=== PATIENT | female | born 1960 | race Caucasian/White ===

== ENCOUNTER → 2016-12-26 | Outpatient (REF) ==
[~2016-12-26] MED LIST: CALC600T57 PO; ESZO1TAB2 PO; MULT1TAB10 PO; PANT20TA PO; SENN8.6T63 PO; SUCR1TA PO; VENL75TA2 PO; VITA10002 PO; VITACRY3 PO; XANA0.5T PO
== END ==
LOC: M LAB 11:36
PROVIDERS: ATTEND Nurse Practitioner Adult Health
DX: Z02.89 Encounter for other administrative examinations (principal)

== ENCOUNTER → 2017-01-28 | Outpatient (CLI) | payer OTHER ==
[2017-01-28 11:14] LABS: BASO % 0.6 % (0.0-1.0); EOS # 0.2 K/mm3 (0.0-0.50); EOS % 2.6 % (0.0-3.0); LARGE UNSTAINED CELL # 0.1 K/mm3 (0.0-0.4); LARGE UNSTAINED CELL % 2.1 % (0.0-4.0); LYMPH # 1.3 K/mm3 (1.5-4.5); LYMPH % 19.6 % (24.0-44.0); MEAN CORPUSCULAR HEMOGLOBIN 28.7 pg (27.0-33.0); MEAN CORPUSCULAR HGB CONC 32.4 g/dl (32.0-36.5); MEAN CORPUSCULAR VOLUME 88.6 fl (80.0-96.0); MONO # 0.4 K/mm3 (0.0-0.8); NEUTROPHILS # 4.2 K/mm3 (1.8-7.7); PLATELET COUNT, AUTOMATED 229 k/mm3 (150-450); RED CELL DISTRIBUTION WIDTH 12.9 % (11.5-14.5)
[2017-01-28 11:35] LABS: ALKALINE PHOSPHATASE 90 U/L (45-117); ALT/SGPT 23 U/L (12-78); ANION GAP 6 MEQ/L (8-16); AST/SGOT 18 U/L (15-37); BILIRUBIN,TOTAL 0.4 MG/DL (0.2-1.0); BLOOD UREA NITROGEN 9 MG/DL (7-18); CALCIUM LEVEL 8.7 MG/DL (8.5-10.1); CARBON DIOXIDE LEVEL 31 MEQ/L (21-32); CHLORIDE LEVEL 106 MEQ/L (98-107); CHOLESTEROL LEVEL 194 MG/DL (<200); CREATININE FOR GFR 0.56 MG/DL (0.55-1.02); GLOMERULAR FILTRATION RATE > 60.0 (>51); GLUCOSE, FASTING 84 MG/DL (70-105); POTASSIUM SERUM 3.9 MEQ/L (3.5-5.1); SODIUM LEVEL 143 MEQ/L (136-145); TRIGLYCERIDES LEVEL 96 MG/DL (<150)
[2017-01-28 11:36] LABS: ALBUMIN 3.4 GM/DL (3.2-5.2); ALBUMIN/GLOBULIN RATIO 1.26 (1.00-1.93); FREE T4 1.11 NG/DL (0.76-1.46); TOTAL PROTEIN 6.1 GM/DL (6.4-8.2)
== END ==
LOC: M WUC 09:27
PROVIDERS: ATTEND Nurse Practitioner Family
DX: E61.1 Iron deficiency (principal); E04.0 Nontoxic diffuse goiter; E78.4 Other hyperlipidemia

== ENCOUNTER → 2017-05-14 | Outpatient (CLI) | payer OTHER ==
--- NOTE | 2017-05-15 03:16 | REP ---
Clinical: Pain. Technique: AP, lateral, bilateral oblique views of the left foot. Findings: Age-related degenerative changes are appreciated primarily involving the interphalangeal joints. No acute fracture or dislocation. Surrounding soft tissues are grossly unremarkable. Lateral view demonstrates small calcaneal heal spur. Impression: Age-related degenerative changes primarily involving the interphalangeal joints. Signed by Maxim Drummond MD 05/15/2017 03:07 A
== END ==
LOC: M RAD 17:22
PROVIDERS: ATTEND Nurse Practitioner Family
DX: M19.072 Primary osteoarthritis, left ankle and foot (principal)

== ENCOUNTER 2017-06-21 11:02 | Outpatient (RCR) | payer OTHER ==
[2017-09-29] MEDS ORDERED: LEVO112T2 (15:11)
[2017-09-29] MEDS ORDERED: FERR32TA (15:11)
[2017-09-29] MEDS ORDERED: TRAZ50TA11 (15:11)
[2017-09-29] MEDS ORDERED: ALPR0.5T3 (15:11)
[2017-09-29] MEDS ORDERED: PREG50CA (15:11)
[2017-09-29] MEDS ORDERED: CITA40TA4 (15:11)
[2017-09-29] MEDS ORDERED: MACR100C43 PO (19:13)
== END 2017-06-24 ==
LOC: M PT 11:02
PROVIDERS: ATTEND Physician Assistant Surgical
DX: Z51.89 Encounter for other specified aftercare (principal); M72.2 Plantar fascial fibromatosis

== ENCOUNTER → 2017-07-02 | Outpatient (CLI) | payer OTHER ==
[~2017-07-02] MED LIST changes: +ALPR0.5T3; +CITA40TA4; +FERR32TA; +LEVO112T2; +MACR100C43 PO; +PREG50CA; +TRAZ50TA11
[2017-07-02 21:21] LABS: BASO % 0.8 % (0.0-1.0); EOS # 0.1 K/mm3 (0.0-0.50); EOS % 1.7 % (0.0-3.0); LARGE UNSTAINED CELL # 0.1 K/mm3 (0.0-0.4); LYMPH # 2.5 K/mm3 (1.5-4.5); MEAN CORPUSCULAR HEMOGLOBIN 28.8 pg (27.0-33.0); MEAN CORPUSCULAR HGB CONC 33.3 g/dl (32.0-36.5); MEAN CORPUSCULAR VOLUME 86.4 fl (80.0-96.0); MONO # 0.4 K/mm3 (0.0-0.8); NEUTROPHILS # 3.6 K/mm3 (1.8-7.7); NEUTROPHILS % 54.5 % (36.0-66.0); PLATELET COUNT, AUTOMATED 220 k/mm3 (150-450); RED CELL DISTRIBUTION WIDTH 13.7 % (11.5-14.5); WHITE BLOOD COUNT 6.6 K/mm3 (4.0-10.0)
[2017-07-02 22:07] LABS: ANION GAP 7 MEQ/L (8-16); BLOOD UREA NITROGEN 20 MG/DL (7-18); CALCIUM LEVEL 8.9 MG/DL (8.5-10.1); CARBON DIOXIDE LEVEL 28 MEQ/L (21-32); CHLORIDE LEVEL 105 MEQ/L (98-107); CREATININE FOR GFR 0.56 MG/DL (0.55-1.02); FREE T4 1.05 NG/DL (0.76-1.46); GLOMERULAR FILTRATION RATE > 60.0 (>51); GLUCOSE, FASTING 83 MG/DL (70-105); POTASSIUM SERUM 4.3 MEQ/L (3.5-5.1); SODIUM LEVEL 140 MEQ/L (136-145)
== END ==
LOC: M WUC 15:48
PROVIDERS: ATTEND Nurse Practitioner Family
DX: E04.0 Nontoxic diffuse goiter (principal); E61.1 Iron deficiency

== ENCOUNTER → 2017-07-08 | Outpatient (CLI) | payer OTHER ==
--- NOTE | 2017-07-08 15:05 | REP ---
CHEST, TWO VIEWS: No prior studies from comparison. Two views of the chest are performed. There is no acute infiltrate. The lungs are clear. Heart is slightly enlarged. Mediastinal silhouette is unremarkable. Metallic plate and screws are seen in the lower cervical spine region. There are mild degenerative changes of the spine. IMPRESSION: Very mild cardiomegaly. No acute infiltrate. Signed by Abhilash Ramirez MD 07/09/2017 12:31 P
== END ==
LOC: M WUC 14:04
PROVIDERS: ATTEND Nurse Practitioner Family
DX: I51.7 Cardiomegaly (principal)

== ENCOUNTER 2017-07-24 14:30 | Outpatient (RCR) | payer OTHER ==
[~2017-07-24 14:30] MED LIST changes: -ALPR0.5T3; -CITA40TA4; -FERR32TA; -LEVO112T2; -MACR100C43 PO; -PREG50CA; -TRAZ50TA11
[2017-09-29] MEDS ORDERED: TRAZ50TA11 (15:11)
[2017-09-29] MEDS ORDERED: PREG50CA (15:11)
[2017-09-29] MEDS ORDERED: FERR32TA (15:11)
[2017-09-29] MEDS ORDERED: CITA40TA4 (15:11)
[2017-09-29] MEDS ORDERED: ALPR0.5T3 (15:11)
[2017-09-29] MEDS ORDERED: LEVO112T2 (15:11)
[2017-09-29] MEDS ORDERED: MACR100C43 PO (19:13)
== END 2017-07-25 ==
LOC: M PT 14:30
PROVIDERS: ATTEND Physician Assistant Surgical
DX: Z51.89 Encounter for other specified aftercare (principal); M72.2 Plantar fascial fibromatosis

== ENCOUNTER → 2017-08-08 | Outpatient (CLI) | payer OTHER ==
[~2017-08-08] MED LIST changes: +ALPR0.5T3; +CITA40TA4; +FERR32TA; +LEVO112T2; +MACR100C43 PO; +PREG50CA; +TRAZ50TA11
== END ==
LOC: M WUC 14:12
PROVIDERS: ATTEND Nurse Practitioner Family
DX: E61.1 Iron deficiency (principal)

== ENCOUNTER 2017-08-12 15:15 | Outpatient (RCR) | payer OTHER ==
[~2017-08-12 15:15] MED LIST changes: -ALPR0.5T3; -CITA40TA4; -FERR32TA; -LEVO112T2; -MACR100C43 PO; -PREG50CA; -TRAZ50TA11
[2017-09-29] MEDS ORDERED: ALPR0.5T3 (15:11)
[2017-09-29] MEDS ORDERED: PREG50CA (15:11)
[2017-09-29] MEDS ORDERED: CITA40TA4 (15:11)
[2017-09-29] MEDS ORDERED: LEVO112T2 (15:11)
[2017-09-29] MEDS ORDERED: FERR32TA (15:11)
[2017-09-29] MEDS ORDERED: TRAZ50TA11 (15:11)
[2017-09-29] MEDS ORDERED: MACR100C43 PO (19:13)
== END 2017-08-24 ==
LOC: M PT 15:15
PROVIDERS: ATTEND Physician Assistant Surgical
DX: Z51.89 Encounter for other specified aftercare (principal); M72.2 Plantar fascial fibromatosis

== ENCOUNTER → 2017-09-10 | Outpatient (REF) | payer OTHER ==
[~2017-09-10] MED LIST changes: +ALPR0.5T3; +CITA40TA4; +FERR32TA; +LEVO112T2; +MACR100C43 PO; +PREG50CA; +TRAZ50TA11
[2017-09-10 17:39] LABS: BASO # 0.1 10^3/uL (0.0-0.2); BASO % 0.8 % (0.0-1.0); EOS # 0.1 10^3/uL (0.0-0.50); IMMATURE GRANULOCYTE % 0.2 % (0-0); LYMPH # 1.9 10^3/uL (1.5-4.5); LYMPH % 28.9 % (24.0-44.0); MEAN CORPUSCULAR HEMOGLOBIN 27.7 pg (27.0-33.0); MEAN CORPUSCULAR HGB CONC 32.2 g/dl (32.0-36.5); MONO # 0.5 10^3/uL (0.0-0.8); NEUTROPHILS # 3.9 10^3/uL (1.8-7.7); NEUTROPHILS % 60.1 % (36.0-66.0); PLATELET COUNT, AUTOMATED 259 10^3/uL (150-450); WHITE BLOOD COUNT 6.5 10^3/uL (4.0-10.0)
== END ==
LOC: M LABNEURO 14:38
PROVIDERS: ATTEND Nurse Practitioner Family
DX: E61.1 Iron deficiency (principal)

== ENCOUNTER 2017-12-09 11:51 | Emergency (ER) | payer OTHER ==
[2017-12-09] MEDS: PERCOCET 5MG/325MG TAB PO (12:59)
== END 2017-12-09 15:03 | disposition home or self-care (01) ==
LOC: M ED 11:51
DX: M50.30 Other cervical disc degeneration, unspecified cervical region (principal); M54.12 Radiculopathy, cervical region; Z98.1 Arthrodesis status; Z79.899 Other long term (current) drug therapy; Z79.890 Hormone replacement therapy; Z88.1 Allergy status to other antibiotic agents; Z88.2 Allergy status to sulfonamides; Z88.5 Allergy status to narcotic agent
CPT/HCPCS: 72040

== ENCOUNTER → 2018-01-07 | Outpatient (REF) | payer OTHER, SELFPAY ==
[2018-01-07 08:46] LABS: BASO # 0.1 10^3/uL (0.0-0.2); EOS # 0.2 10^3/uL (0.0-0.50); EOS % 3.2 % (0.0-3.0); HEMATOCRIT 39.6 % (36.0-47.0); HEMOGLOBIN 12.4 g/dl (12.0-16.0); IMMATURE GRANULOCYTE % 0.2 % (0-3.0); LYMPH # 2.2 10^3/uL (1.5-4.5); LYMPH % 37.7 % (24.0-44.0); MEAN CORPUSCULAR HGB CONC 31.3 g/dl (32.0-36.5); MEAN CORPUSCULAR VOLUME 86.3 fl (80.0-96.0); MONO # 0.5 10^3/uL (0.0-0.8); MONO % 8.4 % (0.0-5.0); NEUTROPHILS # 2.9 10^3/uL (1.8-7.7); NEUTROPHILS % 49.5 % (36.0-66.0); PLATELET COUNT, AUTOMATED 254 10^3/uL (150-450); RED BLOOD COUNT 4.59 10^6/uL (4.00-5.40); RED CELL DISTRIBUTION WIDTH 13.2 % (11.5-14.5); WHITE BLOOD COUNT 5.9 10^3/uL (4.0-10.0)
[2018-01-07 09:04] LABS: ALBUMIN 3.6 GM/DL (3.2-5.2); ALKALINE PHOSPHATASE 82 U/L (45-117); ALT/SGPT 22 U/L (12-78); ANION GAP 5 MEQ/L (8-16); AST/SGOT 16 U/L (7-37); BILIRUBIN,TOTAL 0.4 MG/DL (0.2-1.0); BLOOD UREA NITROGEN 17 MG/DL (7-18); CALCIUM LEVEL 8.3 MG/DL (8.5-10.1); CARBON DIOXIDE LEVEL 30 MEQ/L (21-32); CHLORIDE LEVEL 108 MEQ/L (98-107); CHOLESTEROL LEVEL 234 MG/DL (<200); CREATININE FOR GFR 0.57 MG/DL (0.55-1.30); FREE T3 2.5 PG/ML (2.2-4.0); FREE T4 1.03 NG/DL (0.76-1.46); GLOMERULAR FILTRATION RATE > 60.0 (>51); GLUCOSE, FASTING 80 MG/DL (70-100); HDL CHOLESTEROL 78 MG/DL (>40); IRON (FE) 90 UG/DL (50-170); LDL CHOLESTEROL 132.8 MG/DL (<100); NON-HDL-C 156 MG/DL; POTASSIUM SERUM 4.1 MEQ/L (3.5-5.1); SODIUM LEVEL 143 MEQ/L (136-145); THYROID STIMULATING HORMONE 0.713 uIU/ML (0.358-3.740); TOTAL PROTEIN 6.6 GM/DL (6.4-8.2); TRIGLYCERIDES LEVEL 116 MG/DL (<150)
== END ==
LOC: M LAB REF 08:36
DX: E61.1 Iron deficiency (principal); E04.0 Nontoxic diffuse goiter; E78.4 Other hyperlipidemia
CPT/HCPCS: 83540

== ENCOUNTER → 2018-02-21 | Outpatient (CLI) | payer BC | LOC: M RAD 14:33 | DX: M25.512 Pain in left shoulder (principal) | CPT/HCPCS: 73030 ==

== ENCOUNTER 2018-05-23 11:53 | Emergency (ER) | payer BC ==
[2018-05-24 21:43] LABS: BEDSIDE GLUCOSE 129 MG/DL (70-105)
== END 2018-05-23 13:19 | disposition home or self-care (01) ==
LOC: M ED 11:53
DX: E11.649 Type 2 diabetes mellitus with hypoglycemia without coma (principal); K21.9 Gastro-esophageal reflux disease without esophagitis; Z98.84 Bariatric surgery status; Z79.899 Other long term (current) drug therapy; Z88.5 Allergy status to narcotic agent; Z88.0 Allergy status to penicillin; Z88.1 Allergy status to other antibiotic agents
CPT/HCPCS: 99282

== ENCOUNTER → 2018-08-24 | Outpatient (CLI) | payer BC ==
[2018-08-24 06:07] LABS: BASO % 0.6 % (0.0-1.0); EOS # 0.1 10^3/uL (0.0-0.50); EOS % 2.5 % (0.0-3.0); HEMATOCRIT 37.9 % (36.0-47.0); HEMOGLOBIN 11.9 g/dl (12.0-15.5); IMMATURE GRANULOCYTE % 0.2 % (0-3.0); LYMPH # 1.8 10^3/uL (1.5-4.5); LYMPH % 36.4 % (24.0-44.0); MEAN CORPUSCULAR HEMOGLOBIN 26.4 pg (27.0-33.0); MEAN CORPUSCULAR HGB CONC 31.4 g/dl (32.0-36.5); MONO # 0.4 10^3/uL (0.0-0.8); MONO % 9.1 % (0.0-5.0); NEUTROPHILS # 2.5 10^3/uL (1.8-7.7); NEUTROPHILS % 51.2 % (36.0-66.0); PLATELET COUNT, AUTOMATED 242 10^3/uL (150-450); RED BLOOD COUNT 4.51 10^6/uL (4.00-5.40); WHITE BLOOD COUNT 4.8 10^3/uL (4.0-10.0)
[2018-08-24 06:44] LABS: ALBUMIN 3.4 GM/DL (3.2-5.2); ALBUMIN/GLOBULIN RATIO 1.21 (1.00-1.93); ALKALINE PHOSPHATASE 84 U/L (45-117); ALT/SGPT 17 U/L (12-78); ANION GAP 9 MEQ/L (8-16); AST/SGOT 16 U/L (7-37); BILIRUBIN,TOTAL 0.4 MG/DL (0.2-1.0); BLOOD UREA NITROGEN 15 MG/DL (7-18); CALCIUM LEVEL 9.1 MG/DL (8.5-10.1); CARBON DIOXIDE LEVEL 27 MEQ/L (21-32); CHLORIDE LEVEL 108 MEQ/L (98-107); CHOLESTEROL LEVEL 181 MG/DL (<200); CHOLESTEROL RISK RATIO 2.919 (<5); CREATININE FOR GFR 0.59 MG/DL (0.55-1.30); FREE T3 2.5 PG/ML (2.2-4.0); FREE T4 0.95 NG/DL (0.76-1.46); GLOMERULAR FILTRATION RATE > 60.0 (>51); GLUCOSE, FASTING 81 MG/DL (70-100); HDL CHOLESTEROL 62 MG/DL (>40); IRON (FE) 58 UG/DL (50-170); LDL CHOLESTEROL 103 MG/DL (<100); NON-HDL-C 119 MG/DL; POTASSIUM SERUM 4.2 MEQ/L (3.5-5.1); SODIUM LEVEL 144 MEQ/L (136-145); THYROID STIMULATING HORMONE 0.119 uIU/ML (0.358-3.740); TOTAL PROTEIN 6.2 GM/DL (6.4-8.2); TRIGLYCERIDES LEVEL 81 MG/DL (<150)
== END ==
LOC: M LAB 05:55
DX: D50.9 Iron deficiency anemia, unspecified (principal)
CPT/HCPCS: 83540

== ENCOUNTER → 2019-03-11 | Outpatient (CLI) | payer BC ==
[~2019-03-11] MED LIST changes: +B COTAB3 PO; -ESZO1TAB2 PO; +ESZO1TAB5 PO; -PANT20TA PO; +PANT20TA2 PO; +PERC5TAB12 PO; +TRAZ-160; -TRAZ50TA11
[2019-03-11 10:38] LABS: BASO # 0.1 10^3/uL (0.0-0.2); EOS # 0.1 10^3/uL (0.0-0.50); EOS % 2.3 % (0.0-3.0); HEMATOCRIT 37.4 % (36.0-47.0); HEMOGLOBIN 11.6 g/dl (12.0-15.5); LYMPH # 1.9 10^3/uL (1.5-4.5); LYMPH % 30.5 % (24.0-44.0); MEAN CORPUSCULAR HEMOGLOBIN 25.5 pg (27.0-33.0); MEAN CORPUSCULAR VOLUME 82.2 fl (80.0-96.0); MONO # 0.5 10^3/uL (0.0-0.8); MONO % 8.3 % (0.0-5.0); NEUTROPHILS # 3.5 10^3/uL (1.8-7.7); NEUTROPHILS % 57.7 % (36.0-66.0); PLATELET COUNT, AUTOMATED 302 10^3/uL (150-450); RED BLOOD COUNT 4.55 10^6/uL (4.00-5.40); WHITE BLOOD COUNT 6.1 10^3/uL (4.0-10.0)
[2019-03-11 11:10] LABS: ALBUMIN 3.5 GM/DL (3.2-5.2); ALT/SGPT 19 U/L (12-78); BILIRUBIN,TOTAL 0.2 MG/DL (0.2-1.0); BLOOD UREA NITROGEN 15 MG/DL (7-18); CALCIUM LEVEL 8.6 MG/DL (8.5-10.1); CARBON DIOXIDE LEVEL 28 MEQ/L (21-32); CHLORIDE LEVEL 108 MEQ/L (98-107); CREATININE FOR GFR 0.66 MG/DL (0.55-1.30); FREE T3 2.4 PG/ML (2.2-4.0); GLOMERULAR FILTRATION RATE > 60.0 (>51); GLUCOSE, FASTING 101 MG/DL (70-100); IRON (FE) 28 UG/DL (50-170); POTASSIUM SERUM 4.1 MEQ/L (3.5-5.1); SODIUM LEVEL 141 MEQ/L (136-145); THYROID STIMULATING HORMONE 0.136 uIU/ML (0.358-3.740); TOTAL PROTEIN 6.4 GM/DL (6.4-8.2)
== END ==
LOC: M LAB 10:16
PROVIDERS: ATTEND Nurse Practitioner Family
DX: E61.1 Iron deficiency (principal)

== ENCOUNTER → 2019-04-28 | Outpatient (CLI) | payer BC ==
[~2019-04-28] MED LIST changes: -TRAZ-160; +TRAZ-252
[2019-04-28 16:37] LABS: BASO # 0.1 10^3/uL (0.0-0.2); BASO % 0.8 % (0.0-1.0); EOS # 0.1 10^3/uL (0.0-0.50); EOS % 1.9 % (0.0-3.0); HEMATOCRIT 38.2 % (36.0-47.0); HEMOGLOBIN 11.8 g/dl (12.0-15.5); LYMPH # 2.2 10^3/uL (1.5-4.5); LYMPH % 35.6 % (24.0-44.0); MEAN CORPUSCULAR HEMOGLOBIN 25.3 pg (27.0-33.0); MEAN CORPUSCULAR HGB CONC 30.9 g/dl (32.0-36.5); MONO # 0.5 10^3/uL (0.0-0.8); MONO % 8.5 % (0.0-5.0); NEUTROPHILS # 3.3 10^3/uL (1.8-7.7); PLATELET COUNT, AUTOMATED 277 10^3/uL (150-450); RED BLOOD COUNT 4.66 10^6/uL (4.00-5.40); WHITE BLOOD COUNT 6.2 10^3/uL (4.0-10.0)
== END ==
LOC: M LAB 15:32
PROVIDERS: ATTEND Nurse Practitioner Family
DX: E61.1 Iron deficiency (principal)

== ENCOUNTER → 2019-08-12 | Outpatient (CLI) | payer BC ==
[~2019-08-12] MED LIST changes: +ACET-841 PO; -CITA40TA4; +CITA40TA4 PO; +CYAN100049 PO; -FERR32TA; +FERR32TA PO; -LEVO112T2; +LEVO112T2 PO; +MIRA1POW3 PO; +MM S100C PO; +MULTCAP PO; -TRAZ-252; +TRAZ-252 PO; -VITA10002 PO
[2019-08-12 12:12] LABS: BASO % 0.7 % (0.0-1.0); EOS # 0.1 10^3/uL (0.0-0.5); HEMATOCRIT 44.2 % (36.0-47.0); HEMOGLOBIN 14.1 g/dl (12.0-15.5); LYMPH # 2.1 10^3/uL (1.5-5.0); LYMPH % 34.4 % (24.0-44.0); MEAN CORPUSCULAR HEMOGLOBIN 27.9 pg (27.0-33.0); MEAN CORPUSCULAR HGB CONC 31.9 g/dl (32.0-36.5); MEAN CORPUSCULAR VOLUME 87.5 fl (80.0-96.0); MONO # 0.6 10^3/uL (0.0-0.8); MONO % 9.3 % (0.0-5.0); NEUTROPHILS # 3.3 10^3/uL (1.5-8.5); NEUTROPHILS % 53.4 % (36.0-66.0); PLATELET COUNT, AUTOMATED 282 10^3/uL (150-450); RED BLOOD COUNT 5.05 10^6/uL (4.00-5.40); WHITE BLOOD COUNT 6.1 10^3/uL (4.0-10.0)
[2019-08-12 12:46] LABS: PERCENT SATURATION 20.6 % (13.2-45.0)
[2019-08-12 12:53] LABS: FOLATE 9.4 NG/ML
[2019-08-15 00:06] LABS: HSV TYPE I IgM AB <1:10 titer (<1:10); HSV TYPE II IgM ABY <1:10 titer (<1:10)
== END ==
LOC: M LAB 11:38
PROVIDERS: ATTEND Physician Assistant
DX: D51.9 Vitamin B12 deficiency anemia, unspecified (principal); D48.5 Neoplasm of uncertain behavior of skin; E61.1 Iron deficiency; Z98.84 Bariatric surgery status

== ENCOUNTER → 2020-01-05 | Outpatient (CLI) | payer BC ==
[2020-01-05 08:29] LABS: BASO # 0.1 10^3/uL (0.0-0.2); BASO % 0.9 % (0.0-1.0); EOS # 0.2 10^3/uL (0.0-0.5); EOS % 2.5 % (0.0-3.0); HEMATOCRIT 41.3 % (36.0-47.0); LYMPH # 2.1 10^3/uL (1.5-5.0); LYMPH % 33.5 % (24.0-44.0); MEAN CORPUSCULAR HEMOGLOBIN 28.3 pg (27.0-33.0); MEAN CORPUSCULAR HGB CONC 31.5 g/dl (32.0-36.5); MEAN CORPUSCULAR VOLUME 89.8 fl (80.0-96.0); MONO # 0.6 10^3/uL (0.0-0.8); NEUTROPHILS # 3.4 10^3/uL (1.5-8.5); NEUTROPHILS % 53.8 % (36.0-66.0); PLATELET COUNT, AUTOMATED 229 10^3/uL (150-450); WHITE BLOOD COUNT 6.3 10^3/uL (4.0-10.0)
[2020-01-05 09:04] LABS: ALBUMIN 3.8 GM/DL (3.2-5.2); ALT/SGPT 23 U/L (12-78); BILIRUBIN,TOTAL 0.5 MG/DL (0.2-1.0); BLOOD UREA NITROGEN 14 MG/DL (7-18); CALCIUM LEVEL 8.9 MG/DL (8.5-10.1); CARBON DIOXIDE LEVEL 27 MEQ/L (21-32); CHLORIDE LEVEL 106 MEQ/L (98-107); CHOLESTEROL LEVEL 229 MG/DL (<200); CHOLESTEROL RISK RATIO 3.469 (<5); CREATININE FOR GFR 0.74 MG/DL (0.55-1.30); FREE T3 2.2 PG/ML (2.2-4.0); FREE T4 1.11 NG/DL (0.76-1.46); GLOMERULAR FILTRATION RATE > 60.0 (>51); GLUCOSE, FASTING 84 MG/DL (70-100); HDL CHOLESTEROL 66 MG/DL (>40); IRON (FE) 45 UG/DL (50-170); LDL CHOLESTEROL 149 MG/DL (<100); NON-HDL-C 163 MG/DL; POTASSIUM SERUM 4.1 MEQ/L (3.5-5.1); SODIUM LEVEL 141 MEQ/L (136-145); TOTAL PROTEIN 6.5 GM/DL (6.4-8.2); TRIGLYCERIDES LEVEL 69 MG/DL (<150)
== END ==
LOC: M LAB 07:45
PROVIDERS: ATTEND Nurse Practitioner Family
DX: E61.1 Iron deficiency (principal); E04.0 Nontoxic diffuse goiter; E78.49 Other hyperlipidemia

== ENCOUNTER 2020-04-06 07:54 | Emergency (ER) | payer BC ==
[~2020-04-06] VITALS: Ht 167.6 cm; Wt 86.2 kg
[2020-04-06] MEDS ORDERED: HYDR-643 PO (08:13)
[2020-04-06] MEDS ORDERED: CYAN1000VL SQ (08:13)
[2020-04-06] MEDS ORDERED: VITA50005 PO (08:13)
[2020-04-06] MEDS ORDERED: VALA-3 PO (08:13)
[2020-04-06] MEDS ORDERED: BRIN1TAB3 PO (08:13)
[2020-04-06] MEDS ORDERED: ACETAMINOPHEN 325 MG TAB PO ONE (08:30)
[2020-04-06 09:50] VITALS: BP 121/58
--- NOTE | 2020-04-06 10:03 | REP ---
CHEST SINGLE VIEW: Single view of the chest is performed and compared to a prior study of 07/08/2017. There is mild cardiomegaly. There is no acute infiltrate or pulmonary edema. Mediastinal silhouette is unremarkable and unchanged. IMPRESSION: Mild cardiomegaly. No acute infiltrate. Electronically Signed by Abhilash Ramirez MD 04/06/2020 12:45 P
== END 2020-04-06 09:57 | disposition home or self-care (01) ==
LOC: M ED 07:54
DX: J06.9 Acute upper respiratory infection, unspecified (principal); Z79.899 Other long term (current) drug therapy; Z79.890 Hormone replacement therapy; Z88.1 Allergy status to other antibiotic agents; Z88.2 Allergy status to sulfonamides; Z88.5 Allergy status to narcotic agent
CPT/HCPCS: 36415; 71045; 87486; 87581; 87633; 87798; 87880; 99284; C9803; U0003

== ENCOUNTER → 2020-04-12 | Outpatient (CLI) | payer BC ==
[~2020-04-12] MED LIST changes: +BRIN1TAB3 PO; +CYAN1000VL SQ; +HYDR-643 PO; +VALA-3 PO; +VITA50005 PO
[2020-04-12 07:25] LABS: BASO # 0.1 10^3/uL (0.0-0.2); BASO % 0.8 % (0.0-1.0); EOS # 0.2 10^3/uL (0.0-0.5); EOS % 2.8 % (0.0-3.0); HEMATOCRIT 44.6 % (36.0-47.0); LYMPH # 2.3 10^3/uL (1.5-5.0); LYMPH % 37.8 % (24.0-44.0); MEAN CORPUSCULAR HEMOGLOBIN 27.9 pg (27.0-33.0); MEAN CORPUSCULAR HGB CONC 31.4 g/dl (32.0-36.5); MONO # 0.6 10^3/uL (0.0-0.8); MONO % 9.2 % (0.0-5.0); NEUTROPHILS % 49.2 % (36.0-66.0); PLATELET COUNT, AUTOMATED 217 10^3/uL (150-450); RED BLOOD COUNT 5.01 10^6/uL (4.00-5.40); WHITE BLOOD COUNT 6.1 10^3/uL (4.0-10.0)
[2020-04-12 07:57] LABS: ALBUMIN 3.5 GM/DL (3.2-5.2); ALT/SGPT 26 U/L (12-78); BILIRUBIN,TOTAL 0.6 MG/DL (0.2-1.0); BLOOD UREA NITROGEN 20 MG/DL (7-18); CALCIUM LEVEL 8.6 MG/DL (8.8-10.2); CARBON DIOXIDE LEVEL 30 MEQ/L (21-32); CHLORIDE LEVEL 107 MEQ/L (98-107); CHOLESTEROL LEVEL 236 MG/DL (<200); CREATININE FOR GFR 0.77 MG/DL (0.55-1.30); GLOMERULAR FILTRATION RATE > 60.0 (>45); GLUCOSE, FASTING 85 MG/DL (70-100); HDL CHOLESTEROL 65 MG/DL (>40); LDL CHOLESTEROL 141 MG/DL (<100); NON-HDL-C 171 MG/DL; POTASSIUM SERUM 4.1 MEQ/L (3.5-5.1); SODIUM LEVEL 143 MEQ/L (136-145); THYROID STIMULATING HORMONE 0.421 uIU/ML (0.358-3.740); TOTAL PROTEIN 6.6 GM/DL (6.4-8.2); TRIGLYCERIDES LEVEL 148 MG/DL (<150)
[2020-04-12 10:03] LABS: FOLATE 9.7 NG/ML; TOTAL 25(OH) VITAMIN D 53.6 NG/ML (30.0-100.0); VITAMIN B12 LEVEL 386 PG/ML
== END ==
LOC: M LAB 06:14
PROVIDERS: ATTEND Physician Assistant
DX: E53.9 Vitamin B deficiency, unspecified (principal)

== ENCOUNTER 2020-06-09 11:43 | Emergency (ER) | payer BC ==
[~2020-06-09] VITALS: Ht 167.6 cm; Wt 86.4 kg
[2020-06-09] MEDS ORDERED: LEVO125T4 (11:53)
[2020-06-09] MEDS ORDERED: TRAZ1TAB12 (11:53)
[2020-06-09 12:35] LABS: BASO # 0.1 10^3/uL (0.0-0.2); BASO % 1.1 % (0.0-1.0); EOS # 0.2 10^3/uL (0.0-0.5); HEMATOCRIT 41.6 % (36.0-47.0); HEMOGLOBIN 13.2 g/dl (12.0-15.5); LYMPH % 37.2 % (24.0-44.0); MEAN CORPUSCULAR HEMOGLOBIN 28.4 pg (27.0-33.0); MEAN CORPUSCULAR HGB CONC 31.7 g/dl (32.0-36.5); MEAN CORPUSCULAR VOLUME 89.7 fl (80.0-96.0); MONO # 0.6 10^3/uL (0.0-0.8); MONO % 11.5 % (0.0-5.0); NEUTROPHILS # 2.5 10^3/uL (1.5-8.5); PLATELET COUNT, AUTOMATED 240 10^3/uL (150-450); RED BLOOD COUNT 4.64 10^6/uL (4.00-5.40); WHITE BLOOD COUNT 5.4 10^3/uL (4.0-10.0)
[2020-06-09] MEDS ORDERED: NS 1,000 ML IV ONE (12:45)
[2020-06-09 13:11] LABS: ALBUMIN 3.2 GM/DL (3.2-5.2); ALT/SGPT 31 U/L (12-78); BILIRUBIN,DIRECT < 0.1 MG/DL (0.0-0.2); BILIRUBIN,TOTAL 0.4 MG/DL (0.2-1.0); TOTAL PROTEIN 6.7 GM/DL (6.4-8.2)
--- NOTE | 2020-06-09 14:14 | REP ---
REASON: Dizziness. COMPARISON: 09/29/2017 TECHNIQUE: 4.5 mm contiguous transaxial sections were obtained from the skull base to the cerebral convexities with thin cuts through the posterior fossa without the administration of intravenous contrast. FINDINGS: The ventricles and sulci are consistent with the patient's age. There are no extra-axial fluid collections. There is no mass effect. The deep cerebral white matter is consistent with the patient's age. The orbital and petrous structures, cerebellopontine angles, and posterior fossa are unremarkable. The sella turcica, cavernous, and paracavernous structures are essentially unremarkable. The visualized portions of the paranasal sinuses and mastoid air cells are clear. Images of the skull base show no gross abnormality. IMPRESSION: Essentially unremarkable CT examination of the brain. No significant change from the prior exam. Electronically Signed by Taz Kamara DO 06/09/2020 02:20 P
[2020-06-09 15:12] LABS: MAGNESIUM LEVEL 2.2 MG/DL (1.8-2.4); THYROID STIMULATING HORMONE 0.089 uIU/ML (0.358-3.740)
[2020-06-09] MEDS ORDERED: ACETAMINOPHEN TAB 650MG DOSE (2X325MG) PO ONE (15:15)
[2020-06-09] MEDS ORDERED: ACETAMINOPHEN 325 MG TAB PO ONE (15:15)
--- NOTE | 2020-06-09 15:57 | REP ---
REASON FOR EXAM: Altered mental status. COMPARISON: 04/06/2020. The technique utilized in obtaining the radiograph has magnified the cardiac silhouette and accentuated the interstitial markings. There is cardiomegaly accentuated by technique, status quo. The lung walters are clear and stable. No acute patchy parenchymal opacities or pleural effusions have developed. There is no change in the osseous structures. IMPRESSION: Cardiomegaly without evidence of acute cardiopulmonary disease. Electronically Signed by Taz Kamara DO 06/09/2020 04:15 P
[2020-06-09 16:01] LABS: FREE THYROXINE INDEX 3.3 % (1.3-4.8); T UPTAKE 32 % (30-39); THYROXINE (T4) 10.4 UG/DL (4.5-12.0)
--- NOTE | 2020-06-09 18:37 | REPVR ---
PROCEDURE INFORMATION: Exam: MR Angiogram Head Without Contrast, Arteries Exam date and time: 06/09/2020 6:23 PM Age: 60 years old Clinical indication: Dizziness and giddiness and visual disturbance and weakness; Other visual defect; Additional info: Vague dizziness TECHNIQUE: Imaging protocol: MR angiogram head without contrast. Exam focused on the arteries. 3D rendering: MIP and/or 3D reconstructed images were created by the technologist. COMPARISON: CT Head without contrast 06/09/2020 12:05 PM FINDINGS: Anterior cerebral arteries: Intracranial segment is patent with no significant stenosis. No aneurysm. Right internal carotid artery: Intracranial segment is patent with no significant stenosis. No aneurysm. Right middle cerebral artery: No occlusion or significant stenosis. No aneurysm. Right posterior cerebral artery: No occlusion or significant stenosis. No aneurysm. 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 Patent. No aneurysm. Left internal carotid artery: Intracranial segment is patent with no significant stenosis. No aneurysm. Left middle cerebral artery: No occlusion or significant stenosis. No aneurysm. Left posterior cerebral artery: No occlusion or significant stenosis. No aneurysm. Left vertebral artery: The left vertebral artery is dominant. Patent. No aneurysm. Basilar artery: No occlusion or significant stenosis. No aneurysm. IMPRESSION: No major proximal vessel branch occlusion or stenosis seen. Electronically signed by: Ceci Plata On 06/09/2020 18:37:38 PM
--- NOTE | 2020-06-09 18:42 | REPVR ---
PROCEDURE INFORMATION: Exam: MR Head Without Contrast Exam date and time: 06/09/2020 6:23 PM Age: 60 years old Clinical indication: Dizziness and visual disturbance and weakness, extremity; Bilateral; Additional info: Vague dizziness TECHNIQUE: Imaging protocol: MR of the head without contrast. COMPARISON: CT Head without contrast 06/09/2020 12:05 PM FINDINGS: Brain: No acute infarct identified on the diffusion-weighted imaging. No parenchymal hemorrhage. Mild cerebellar tonsillar ectopia, likely incidental. No evidence of brain parenchymal edema or intracranial mass effect. No significant white matter disease. Ventricles: No ventriculomegaly. Bones/joints: The upper cervical spine is incidentally visualized on the sagittal T1 sequence. Susceptibility artifact in keeping with prior surgery. Sinuses: Trace ethmoid mucosal thickening. Mastoid air cells: Normal as visualized. No mastoid effusion. Orbits: Unremarkable. Soft tissues: Unremarkable. IMPRESSION: No evidence of acute infarct. Electronically signed by: Ceci Plata On 06/09/2020 18:42:00 PM
[2020-06-09] MEDS ORDERED: KETOROLAC 30 MG/ML 1ML VIAL IV ONE (19:15)
--- NOTE | 2020-06-09 20:39 | ECGEPIP ---
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
[2020-06-09 20:45] VITALS: BP 134/67
== END 2020-06-09 21:13 | disposition home or self-care (01) ==
LOC: M ED 11:43
DX: R00.1 Bradycardia, unspecified (principal); E03.9 Hypothyroidism, unspecified; K21.9 Gastro-esophageal reflux disease without esophagitis; Z98.84 Bariatric surgery status; I51.7 Cardiomegaly; Z79.899 Other long term (current) drug therapy; Z88.2 Allergy status to sulfonamides; Z88.5 Allergy status to narcotic agent; Z88.1 Allergy status to other antibiotic agents
CPT/HCPCS: 36415; 70450; 70544; 70551; 71045; 80047; 80076; 81001; 83735; 84436; 84443; 84479; 85025; 87086; 93005; 93041; 94760; 96361; 96374; 99285; J1885

== ENCOUNTER → 2020-07-07 | Outpatient (CLI) | payer BC ==
[~2020-07-07] MED LIST changes: +LEVO125T4; -PANT20TA2 PO; +PANT20TA6 PO; +TRAZ1TAB12
[2020-08-24 08:56] LABS: ALBUMIN 3.6 GM/DL (3.2-5.2); ALT/SGPT 21 U/L (12-78); BILIRUBIN,TOTAL 0.4 MG/DL (0.2-1.0); BLOOD UREA NITROGEN 18 MG/DL (7-18); CALCIUM LEVEL 8.9 MG/DL (8.8-10.2); CARBON DIOXIDE LEVEL 29 MEQ/L (21-32); CHLORIDE LEVEL 109 MEQ/L (98-107); CREATININE FOR GFR 0.72 MG/DL (0.55-1.30); GLOMERULAR FILTRATION RATE > 60.0 (>45); GLUCOSE, FASTING 96 MG/DL (70-100); SODIUM LEVEL 143 MEQ/L (136-145); TOTAL PROTEIN 6.6 GM/DL (6.4-8.2)
== END ==
LOC: M LAB 06:10
PROVIDERS: ATTEND Family Medicine
DX: E03.9 Hypothyroidism, unspecified (principal); R74.8 Abnormal levels of other serum enzymes

== ENCOUNTER 2021-01-15 07:46 | Emergency (ER) | payer OTHER, BC ==
[~2021-01-15] VITALS: Ht 165.1 cm; Wt 83.2 kg
[2021-01-15] MEDS ORDERED: TEMA15CA2 PO (07:53)
[2021-01-15] MEDS ORDERED: OXYB5TAB10 PO (07:53)
--- OUTSIDE RECORDS SUMMARY | 2021-01-15 07:53 | CCD | Continuity of Care Document ---
Author Author Faye GREEN Organization Unknown Address [address] [place] [address] 6 [address] [place] [address] Phone [phone] Care Team Providers Care Tool Crib Lead Name Role Phone Lakesha Mark D.O.M [phone] Problems Active Problems Provider Date Insomnia BRITNEY Rios Onset: 08/12/2019 Depressive disorder BRITNEY Rios Onset: 08/12/2019 Hypothyroidism BRITNEY Rios Onset: 08/12/2019 Moderate recurrent major depression BRITNEY Rios Ons et: 08/12/2019 Generalized anxiety disorder BRITNYE Rios Onset: Cobalamin deficiency BRITNEY Rios Onset: 08/12/2019 Iron deficiency BRITNEY Rios Onset: 08/12/2019 Bariatric surgery status BRITNEY Rios Onset: 019 Herpes simplex type 2 infection BRITNEY Rios Onset: 08/15/2019 Herpes simplex type 1 infection BRITNEY Rios Onset: 08/15/2019 Vitamin D deficiency BRITNEY Rios Onset: 08/15/2019 Pure hypercholesterolemia BRITNEY Sharma Onset: 020 Social History Type Date Description Comments Sex Unknown ETOH Use Denies alcohol use Tobacco Use Start: Unknown Patient has never smoked Recreational Drug Use Denies Drug Use Smoking Status Reviewed: 10/19/20 Patient has never smoked Exercise Type/Frequency Does not exercise Sun Exposure Uses sunscreen Seat Belt/Car Seat Always uses seat belt Allergies, Adverse Reactions, Alerts Active Allergies Reaction Severity Comments Date Sulfa 07/02/2019 Morphine 07/02/2019 Tetracycline 07/02/2019 Medications Active Medications SIG Qnty Indications Ordering Provide r Date Oxybutynin Chloride ER 5mg Tablets ER 24HR 1 by mouth every day 30tabs N32.81 Rocío SotoOGalilea 07/20/2020 Temazepam 15mg Capsules 1-2 by mouth every evening as needed for insomnia [facility] reference #: [id number] 60caps G47.00 Asif Soto.O. 07/20/2020 Azelastine HCL (Nasal) 0.15% Solut ion Doran 2 Sprays Into Each Nostril Every Day 30units H65.21 Asif Soto.O. 06/22/2020 Levothyroxine Sodium 125mcg Tablet s 1 by mouth every day on an empty stomach. 90tabs E03.9 Asif Wall.O. 01/06/2020 Vitamin D3 Ultra Potency 1.25mg (98935 Ut) Tablets 1 by mouth once a week for 12 weeks 12tabs Rocío SotoOGalilea 01/05/2020 Trintellix 20mg Tablets Take 1 Tablet By Mouth Every Day 30tabs F33.1 Asif Soto.O. 10/27 Cyanocobalamin 1000mcg/ML Solution 1 milliliters injection monthly 3ml D51.9 Lakesha Young er, D.O. 09/02/2019 Valacyclovir HCL 500mg Tablets 1 by mouth every day 90tabs Rocío SotoOGalilea 09/02 1ML Vanishpoint Tuberculin Syringe 25GX5 /8" 25G X 5/8" 1 ML Misc to be used to administer vitamin b12 3units Asif Soto.OGalilea 09/02/2019 Vitamin C 500mg Capsules 1 by mouth every day Unknown Vitamin B12 1000mcg Tablets ER 1 by mouth every day Unknown History Medications Trazodone HCL 50mg Tablets take 1 by mouth every night at bedtime as needed 90tabs Rocío LambertOGalilea 06/22/2020 - 07/20/2020 Meclizine HCL 25mg Tablets 1 tablet by mouth as needed every 6 hours as needed 60tabs R42 Lakesha Pete D.O. 06/22/2020 - 07/20/2020 Immunizations Description No Information Available Vital Signs Date Vital Result Comment 10/19/2020 11:03am BP Systolic 144 mmHg 134/70 rechec k lg cuff BP Diastolic 88 mmHg 134/70 recheck lg cu ff Height 63.5 inches 5'3.50" Weight 188.00 lb BMI (Body Mass Index) 32.8 kg/m2 Heart Rate 75 /min Respiratory Rate 22 /min Body Temperature 97.8 F O2 % BldC Oximetry 96 % [place] Body Weight 115 lb 07/20/2020 11:09am BP Systolic 122 mmHg BP Diastolic 68 mmHg Height 63.5 inches 5'3.50" Weight 187.00 lb BMI (Body Mass Index) 32.6 kg/m2 Heart Rate 78 /min Respiratory Rate 18 /min Body Temperature 96.2 F O2 % BldC Oximetry 97 % [place] Body Weight 115 lb Results Test Acquired Date Facility Test Result H/L Range Note FT4&TSH Panel 07/07/2020 [facility]ter [address] [place] [address] [phone] Thyroid Stimulating Hormone TNP uIU/ML Normal 0.35 8-3.740 1 Free T4 TNP ng/dL Normal 0.76-1.46 2 Laboratory test finding 07/07/[address] [id number] [phone] Gamma Glutamyltranspeptidase 9 U/L Normal 5-5 5 Comprehensive Metabolic Profil 07/07/[address] [id number] [phone] Glucose, Fasting 96 mg/dL Normal 70-100 Blood Urea Nitrogen 18 mg/dL Normal 7-18 Creatinine For GFR 0.72 mg/dL Normal 0.55-1.30 Glomerular Filtration Rate > 60.0 Normal >45 3 Sodium Level 143 mEq/L Normal 136-145 Potassium Serum 4.0 mEq/L Normal 3.5-5.1 Chloride Level 109 mEq/L High 98-107 Carbon Dioxide Level 29 mEq/L Normal 21-32 Anion Gap 5 mEq/L Low 8-16 Calcium Level 8.9 mg/dL Normal 8.8-10.2 Ast/Sgot 19 U/L Normal 7-37 Alt/SGPT 21 U/L Normal 12-78 Alkaline Phosphatase 98 U/L Normal 45-117 Bilirubin,Total 0.4 mg/dL Normal 0.2-1.0 Total Protein 6.6 GM/DL Normal 6.4-8.2 Albumin 3.6 GM/DL Normal 3.2-5.2 Albumin/Globulin Ratio 1.2 Normal 1.2-2.2 Laboratory test finding 06/09/2020 [facility] Outpatient T esting (Registration) [address] [place] [phone] Bedside Glucose 85 mg/dL Normal 80-115 Ua W/ Reflex To Culture 06/09/2020 [facility] Outpatient T esting (Registration) [address] [place] [address] 94341 [phone] Appearance, Urine RFX HAZY Normal Clear Color, Urine RFX YELLOW Normal Yellow PH,Urine RFX 5.0 units Normal 5.0-9.0 Specific [place] Ur Auto RFX 1.020 Normal 1.002-1.035 Protein, Urine Auto RFX NEGATIVE mg/dL Normal Negative Glucose, Urine (Ua) Auto RFX NEGATIVE mg/dL Normal Negative Ketone, Urine Auto RFX NEGATIVE mg/dL Normal Negative Urobilinogen, Urine Auto RFX 0.2 mg/dL Normal 0.0-2.0 Bilirubin, Urine Auto RFX NEGATIVE Normal Negative Nitrite, Urine Auto RFX NEGATIVE Normal Negative Leukocyte Esterase Ur Auto RFX 3+ High Negative Blood, Urine Blood RFX NEGATIVE Normal Negative WBC, Urine Auto RFX 1 /HPF Normal 0-3 RBC, Urine Auto RFX 0 /HPF Normal 0-3 Bacteria, Urine Auto RFX NEGATIVE Normal Negative Squam Epithelial Cell Ur Aurfx 1 /HPF Normal 0-6 Mucus, Urine RFX SMALL Normal Negative Hyaline Cast, Urine Auto RFX 0 /LPF Normal 0-1 Reflex Urine Culture 06/09/2020 [facility] Outpatient Test ing (Registration) [address] [place] [address] 12055 [phone] Reflex Urine Culture FULL REPORT IN L <SEE NOTE> Norm al 4 Istat Chem8+ Panel 06/09/2020 [facility] Outpatient Testi ng (Registration) [address] [place] [address] 82734 [phone] iSTAT HCT 41.0 % Normal 38.0-51.0 iSTAT Glucose 69 mg/dL Low 70-105 iSTAT Sodium 142 mEq/L Normal 136-145 iSTAT Potassium 4.6 mEq/L Normal 3.5-5.1 iSTAT CA++ 4.5 mg/dL Normal 4.5-5.3 iSTAT Chloride 107 mEq/L Normal 98-109 iSTAT Co2 27.0 MM/L Normal 23.0-27.0 iSTAT BUN 17 mg/dL Normal 8-26 iSTAT Creatinine 0.6 mg/dL Normal 0.6-1.3 CBC With Differential 06/09/2020 [facility] Outpatient Bhavna ting (Registration) [address] [place] [address] 24883 [phone] White Blood Count 5.4 10 Normal 4.0-10.0 Red Blood Count 4.64 10 Normal 4.00-5.40 Hemoglobin 13.2 g/dL Normal 12.0-15.5 Hematocrit 41.6 % Normal 36.0-47.0 Mean Corpuscular Volume 89.7 fl Normal 80.0-96.0 Mean Corpuscular Hemoglobin 28.4 pg Normal 27.0-33.0 Mean Corpuscular HGB Conc 31.7 g/dL Low 32.0-36.5 Red Cell Distribution Width 13.2 % Normal 11.5-14.5 Platelet Count, Automated 240 10 Normal 150-450 Neutrophils % 47.0 % Normal 36.0-66.0 Lymph % 37.2 % Normal 24.0-44.0 [place] % 11.5 % High 0.0-5.0 Eos % 3.0 % Normal 0.0-3.0 Baso % 1.1 % High 0.0-1.0 Immature Granulocyte % 0.2 % Normal 0-3.0 Nucleated Red Blood Cell % 0.0 % Normal 0-0 Neutrophils # 2.5 10 Normal 1.5-8.5 Lymph # 2.0 10 Normal 1.5-5.0 [place] # 0.6 10 Normal 0.0-0.8 Eos # 0.2 10 Normal 0.0-0.5 Baso # 0.1 10 Normal 0.0-0.2 Liver Profile 06/09/2020 [facility] Outpatient Testi ng (Registration) [address] [place] [address] [phone] Ast/Sgot 58 U/L High 7-37 5 Alt/SGPT 31 U/L Normal 12-78 Alkaline Phosphatase 85 U/L Normal 45-117 Bilirubin,Total 0.4 mg/dL Normal 0.2-1.0 Bilirubin,Direct < 0.1 mg/dL Normal 0.0-0.2 Total Protein 6.7 GM/DL Normal 6.4-8.2 Albumin 3.2 GM/DL Normal 3.2-5.2 Albumin/Globulin Ratio 0.9 Low 1.2-2.2 Laboratory test finding 06/09/2020 [facility] Outpatient T esting (Registration) [address] [place] [address] [phone] Magnesium Level 2.2 mg/dL Normal 1.8-2.4 Thyroid Stimulating Hormone 0.089 uIU/ML Low 0.358-3.740 Thyroid Profile 06/09/2020 [facility] Outpatient Testi ng (Registration) [address] [place] [address] [phone] T Uptake 32 % Normal 30-39 Thyroxine (T4) 10.4 g/dL Normal 4.5-12.0 Free Thyroxine Index 3.3 % Normal 1.3-4.8 Thyroid Stimulating Hormone 0.089 uIU/ML Low 0.358-3.740 1 Test not performed. Please resubmit with new order and sample. 2 Test not performed. Please resubmit with new order and sample. 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 SPECIMEN APPEARS CONTAMINATED 5 Testing was performed on a h emolysed specimen. Suggest recollection of specimen for more accurate test results. Procedures Description No Information Available Medical Devices Description No Information Available Encounters Type Date Location Provider Dx Diagnosis Office Visit 07/20/2020 11:00a [facility] BRITNEY Avila F41.1 Generalized anxiety disorder F33.1 Major depressive disorder, r ecurrent, moderate D51.9 Vitamin B12 deficiency anemi a, unspecified E61.1 Iron deficiency E03.9 Hypothyroidism, unspecified E55.9 Vitamin D deficiency, unspec ified Z98.84 Bariatric surgery status G47.00 Insomnia, unspecified N32.81 Overactive bladder Office Visit 06/22/2020 3:00p [facility] Lakesha Mark, D.O. R42 Dizziness and giddiness H65.21 Chronic serous otitis media, right ear R74.8 Abnormal levels of other ser um enzymes F41.1 Generalized anxiety disorder F33.1 Major depressive disorder, r ecurrent, moderate D51.9 Vitamin B12 deficiency anemi a, unspecified E61.1 Iron deficiency E03.9 Hypothyroidism, unspecified E55.9 Vitamin D deficiency, unspec ified Z98.84 Bariatric surgery status Assessments Date Code Description Provider 10/19/2020 Z00.00 Encounter for omaira l adult medical examination without abnormal findings BRITNEY Rios 07/20/2020 F41.1 Generalized anxiety disorder BRITNEY Mills 07/20/2020 F33.1 Major depressive disorder, recur rent, moderate BRITNEY Rios 07/20/2020 D51.9 Vitamin B12 deficiency anemia, u nspecified BRITNEY Rios 07/20/2020 E61.1 Iron deficiency BRITNEY Rios 07/20/2020 E03.9 Hypothyroidism, unspecified BRITNEY Tyson 07/20/2020 E55.9 Vitamin D deficiency, unspecifie d BRITNEY Rios 07/20/2020 Z98.84 Bariatric surgery status BRITNEY Rios 07/20/2020 G47.00 Insomnia, unspecified BRITNEY Dubois 07/20/2020 N32.81 Overactive bladder BRITNEY Arambula 06/22/2020 R42 Dizziness and giddiness Lakesha Pete, D.O. 06/22/2020 H65.21 Chronic serous otitis media, rig ht ear Lakesha Mark D.O. 06/22/2020 R74.8 Abnormal levels of other serum e nzymes Lakesha Mark, D.O. 06/22/2020 F41.1 Generalized anxiety disorder Charlamadonna AtkinsMallika, D.O. 06/22/2020 F33.1 Major depressive disorder, recur rent, moderate Lakesha Tena, D.O. 06/22/2020 D51.9 Vitamin B12 deficiency anemia, u nspecified Lakesha Tena, D.O. 06/22/2020 E61.1 Iron deficiency Lakesha caceres D.O. 06/22/2020 E03.9 Hypothyroidism, unspecified Lakesha Mark, D.O. 06/22/2020 E55.9 Vitamin D deficiency, unspecifie d Lakesha Mark D.O. 06/22/2020 Z98.84 Bariatric surgery status Lakesha Cruz D.O. Plan of Treatment Future Appointment(s):* 04/19/2021 3:40 pm - Lakesha Mark D.O. at [facility] 10/19/2020 - BRITNEY Rios* Z00.00 Encounter for general adult medical examination without abnormal findings* New Labs:* Comprehensive Metabolic Profil, Scheduled: 04/18/21 * CBC With Differential, Scheduled: 04/18/21 * Total Iron Binding Capacit, Scheduled: 04/18/21 * Vitamin B12 & Folate, Scheduled: 04/18/21 * Vitamin D 25-Hydroxy, Scheduled: 04/18/21 * Lipid Panel, Scheduled: 04/18/21 * FT4&TSH Panel, Scheduled: 04/18/21 * Comments:* Your exam was unremarkable today. Continue your current medications, and call for any concerns. * Follow up:* [address] Madrid. Functional Status Description No Information Available Mental Status Description No Information Available Referrals Description No Information Available
--- OUTSIDE RECORDS SUMMARY | 2021-01-15 07:53 | CCD | Continuity of Care Document ---
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 07/20/2020 Azelastine HCL (Nasal) 0.15% Solut ion [place] 2 Sprays Into Each Nostril Every Day 30units H65.21 Asif Soto.O. 06/22/2020 Levothyroxine Sodium 125mcg Tablet s 1 by mouth every day on an empty stomach. 90tabs E03.9 Asif Wall.O. 01/06/2020 Vitamin D3 Ultra Potency 1.25mg (73249 Ut) Tablets 1 by mouth once a [...] F O2 % BldC Oximetry 96 % [place] Body Weight 115 lb 07/20/2020 11:09am BP Systolic 122 mmHg BP Diastolic 68 mmHg Height 63.5 inches 5'3.50" Weight 187.00 lb BMI (Body Mass Index) 32.6 kg/m2 Heart Rate 78 /min Respiratory Rate 18 /min Body Temperature 96.2 F O2 % BldC Oximetry 97 % [place] Body Weight 115 lb Results Test Acquired Date Facility Test Result H/L Range Note FT4&TSH Panel 07/07/2020 [facility] nter [address] [place] [address] [phone] Thyroid Stimulating Hormone TNP uIU/ML Normal 0.35 8-3.740 1 Free T4 TNP ng/dL Normal 0.76-1.46 2 Laboratory test finding 07/07/[address] [id number] [phone] Gamma Glutamyltranspeptidase 9 U/L Normal 5-5 5 Comprehensive Metabolic Profil 07/07/[address] [id number] [phone] Glucose, Fasting 96 mg/dL Normal 70-100 Blood [...] 1.2 Normal 1.2-2.2 Laboratory test finding 06/09/2020 [facility] [place] [facility] [place] [address] [place] [address] [phone] Bedside Glucose 85 mg/dL Normal 80-115 Ua W/ Reflex To Culture 06/09/2020 [facility] [place] [facility] (Registration) [address] [place] [address] [phone] Appearance, Urine RFX HAZY Normal Clear Color, Urine RFX YELLOW Normal Yellow PH,Urine RFX 5.0 units Normal 5.0-9.0 Specific [place] Ur Auto RFX 1.020 Normal 1.002-1.035 Protein, [...] /LPF Normal 0-1 Reflex Urine Culture 06/09/2020 [facility] [place] Test [place] (Registration) [address] [place] [address] [phone] Reflex Urine Culture FULL REPORT IN L <SEE NOTE> Norm al 4 Istat Chem8+ Panel 06/09/2020 [facility] [place] [facility] (Registration) [address] [place] [address] [phone] iSTAT HCT 41.0 % Normal 38.0-51.0 iSTAT Glucose 69 mg/dL Low 70-105 iSTAT Sodium 142 mEq/L Normal 136-145 iSTAT Potassium 4.6 mEq/L Normal 3.5-5.1 iSTAT CA++ 4.5 mg/dL Normal 4.5-5.3 iSTAT Chloride 107 mEq/L Normal 98-109 iSTAT Co2 27.0 MM/L Normal 23.0-27.0 iSTAT BUN 17 mg/dL Normal 8-26 iSTAT Creatinine 0.6 mg/dL Normal 0.6-1.3 CBC With Differential 06/09/2020 [facility] [place] Bhavna ting (Registration) [address] [place] [address] [phone] White Blood Count 5.4 10 Normal 4.0-10.0 [...] 36.0-66.0 Lymph % 37.2 % Normal 24.0-44.0 [place] % 11.5 % High 0.0-5.0 Eos % 3.0 % Normal 0.0-3.0 Baso % 1.1 % High 0.0-1.0 Immature Granulocyte % 0.2 % Normal 0-3.0 Nucleated Red Blood Cell % 0.0 % Normal 0-0 Neutrophils # 2.5 10 Normal 1.5-8.5 Lymph # 2.0 10 Normal 1.5-5.0 [place] # 0.6 10 Normal 0.0-0.8 Eos # 0.2 10 Normal 0.0-0.5 Baso # 0.1 10 Normal 0.0-0.2 Liver Profile 06/09/2020 [facility] [place] [facility] (Registration) [address] [place] [address] [phone] Ast/Sgot 58 U/L High 7-37 5 Alt/SGPT 31 U/L Normal 12-78 Alkaline Phosphatase 85 U/L Normal 45-117 Bilirubin,Total 0.4 mg/dL Normal 0.2-1.0 Bilirubin,Direct < 0.1 mg/dL Normal 0.0-0.2 Total Protein 6.7 GM/DL Normal 6.4-8.2 Albumin 3.2 GM/DL Normal 3.2-5.2 Albumin/Globulin Ratio 0.9 Low 1.2-2.2 Laboratory test finding 06/09/2020 [facility] [place] [facility] (Registration) [address] [place] [address] [phone] Magnesium Level 2.2 mg/dL Normal 1.8-2.4 Thyroid Stimulating Hormone 0.089 uIU/ML Low 0.358-3.740 Thyroid Profile 06/09/2020 [facility] [place] [facility] (Registration) [address] [place] [address] [phone] T Uptake 32 % Normal 30-39 Thyroxine [...] Little GFR Left ESRD GFR <15 on HOT DIP PLATER 4 FULL REPORT IN LAB NOTES (eC W and [facility]). SPECIMEN APPEARS CONTAMINATED 5 Testing was performed on a h emolysed specimen. Suggest recollection of specimen for more accurate test results. Procedures Description No Information Available Medical Devices Description No Information Available Encounters Type Date Location Provider Dx Diagnosis Office Visit 10/19/2020 11:00a [facility] BRITNEY Avila Z00.00 Encntr for general adult med ical exam w/o abnormal findings Office Visit 07/20/2020 11:00a [facility] BRITNEY Rios F41.1 Generalized anxiety disorder F33.1 Major depressive disorder, r ecurrent, moderate D51.9 Vitamin B12 deficiency anemi a, unspecified E61.1 Iron deficiency E03.9 Hypothyroidism, unspecified E55.9 Vitamin D deficiency, unspec ified Z98.84 Bariatric surgery status G47.00 Insomnia, unspecified N32.81 Overactive bladder Office Visit 06/22/2020 3:00p [facility] Genaro Mark, D.O. R42 Dizziness and giddiness H65.21 [...] Code Description Provider 10/19/2020 Z00.00 Encounter for genera l adult medical examination without abnormal findings [...] serous otitis media, rig ht ear Lakesha Mark, D.O. 06/22/2020 R74.8 Abnormal levels of other serum e nzymes Lakesha Mark, D.O. 06/22/2020 F41.1 Generalized anxiety disorder Charla peacock Deedee, D.O. 06/22/2020 F33.1 Major depressive disorder, recur rent, moderate Lakesha Tena, D.O. 06/22/2020 D51.9 Vitamin B12 deficiency anemia, u nspecified Lakesha Tena, D.O. 06/22/2020 E61.1 Iron deficiency Lakesha Mag rber, D.O. 06/22/2020 E03.9 Hypothyroidism, unspecified Lakesha Mark, D.O. 06/22/2020 E55.9 Vitamin D deficiency, unspecifie d Lakesha Mark, D.O. 06/22/2020 Z98.84 Bariatric surgery status Lakesha Cruz D.O. Plan of Treatment Future Appointment(s):* 04/19/2021 3:40 pm - Lakesha Mark D.O. at [facility] 10/19/2020 - BRITNEY Rios* Z00.00 Encounter for [...]
--- OUTSIDE RECORDS SUMMARY | 2021-01-15 07:54 | CCD ---
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 Role Phone Franklyn Mcdonald Unavailable Unavailable Franklyn Mcdonald Unavailable Unavailable Franklyn Mcdonald Unavailable Unavailable Franklyn Mcdonald Unavailable Unavailable Franklyn Mcdonald Unavailable Unavailable Franklyn Mcdonald Unavailable Unavailable Franklyn Mcdonald Unavailable Unavailable Franklyn Mcdonald Unavailable Unavailable Franklyn Mcdonald Unavailable Unavailable Harry, Franklyn PA Unavailable Unavailable Harry, Franklyn PA Unavailable Unavailable Harry, Franklyn PA Unavailable Unavailable Harry, Franklyn PA Unavailable Unavailable Harry, Franklyn PA Unavailable Unavailable Harry, Franklyn PA Unavailable Unavailable Harry, Franklyn PA Unavailable Unavailable Harry, Franklyn PA Unavailable Unavailable Harry, Franklyn PA Unavailable Unavailable Harry, Franklyn PA Unavailable Unavailable Harry, Franklyn PA Unavailable Unavailable Harry, Franklyn PA Unavailable Unavailable Harry, Franklyn PA Unavailable Unavailable Harry, Franklyn PA Unavailable Unavailable Harry, Franklyn PA Unavailable Unavailable Harry, Franklyn PA Unavailable Unavailable Harry, Franklyn PA Unavailable Unavailable Harry, Franklyn PA Unavailable Unavailable Harry, Franklyn PA Unavailable Unavailable Harry, Franklyn PA Unavailable Unavailable Harry, Franklyn PA Unavailable Unavailable Harry, Franklyn PA Unavailable Unavailable Harry, Franklyn PA Unavailable Unavailable Harry, Franklyn PA Unavailable Unavailable Harry, Franklyn PA Unavailable Unavailable Harry, Franklyn PA Unavailable Unavailable Harry, Franklyn PA Unavailable Unavailable Harry, Franklyn PA Unavailable Unavailable Harry, Franklyn PA Unavailable Unavailable Harry, Franklyn PA Unavailable Unavailable Harry, Franklyn PA Unavailable Unavailable Harry, Franklyn PA Unavailable Unavailable Harry, Franklyn PA Unavailable Unavailable Harry, Franklyn PA Unavailable Unavailable Harry, Franklyn PA Unavailable Unavailable Harry, Franklyn PA Unavailable Unavailable Harry, Franklyn PA Unavailable Unavailable Harry, Franklyn PA Unavailable Unavailable Harry, Franklyn PA Unavailable Unavailable Harry, Franklyn PA Unavailable Unavailable VIRGINIA-ALVINO, LAKESHA DO Unavailable Unavailable VIRGINIA-ALVINO, LAKESHA DO Unavailable Unavailable VIRGINIA-ALVINO, LAKESHA DO Unavailable Unavailable VIRGINIA-ALVINO, LAKESHA DO Unavailable Unavailable VIRGINIA-ALVINO, LAKESHA DO Unavailable Unavailable VIRGINIA-ALVINO, LAKESHA DO Unavailable Unavailable VIRGINIA-ALVINO, LAKESHA DO Unavailable Unavailable VIRGINIA-ALVINO, LAKESHA DO Unavailable Unavailable VIRGINIA-ALVINO, LAKESHA DO Unavailable Unavailable VIRGINIA-ALVINO, LAKESHA DO Unavailable Unavailable VIRGINIA-ALVINO, LAKESHA DO Unavailable Unavailable VIRGINIA-ALVINO, LAKESHA DO Unavailable Unavailable VIRGINIA-ALVINO, LAKESHA DO Unavailable Unavailable VIRGINIA-ALVINO, LAKESHA DO Unavailable Unavailable VIRGINIA-ALVINO, LAKESHA DO Unavailable Unavailable VIRGINIA-ALVINO, LAKESHA DO Unavailable Unavailable VIRGINIA-ALVINO, LAKESHA DO Unavailable Unavailable VIRGINIA-ALVINO, LAKESHA DO Unavailable Unavailable VIRGINIA-ALVINO, LAKESHA DO Unavailable Unavailable VIRGINIA-ALVINO, LAKESHA DO Unavailable Unavailable VIRGINIA-ALVINO, LAKESHA DO Unavailable Unavailable VIRGINIA-ALVINO, LAKESHA DO Unavailable Unavailable VIRGINIA-ALVINO, LAKESHA DO Unavailable Unavailable VIRGINIA-ALVINO, LAKESHA DO Unavailable Unavailable IVRGINIA-ALVINO, LAKESHA DO Unavailable Unavailable VIRGINIA-ALVINO, LAKESHA DO Unavailable Unavailable VIRGINIA-ALVINO, LAKESHA DO Unavailable Unavailable VIRGINIA-ALVINO, LAKESHA DO Unavailable Unavailable VIRGINIA-ALVINO, LAKESHA DO Unavailable Unavailable VIRGINIA-ALVINO, LAKESHA DO Unavailable Unavailable VIRGINIA-ALVINO, LAKESHA DO Unavailable Unavailable VIRGINIA-ALVINO, LAKESHA DO Unavailable Unavailable VIRGINIA-ALVINO, LAKESHA DO Unavailable Unavailable VIRGINIA-ALVINO, LAKESHA DO Unavailable Unavailable VIRGINIA-ALVINO, LAKESHA DO Unavailable Unavailable VIRGINIA-ALVINO, LAKESHA DO Unavailable Unavailable VIRGINIA-ALVINO, LAKESHA DO Unavailable Unavailable VIRGINIA-ALVINO, LAKESHA DO Unavailable Unavailable VIRGINIA-ALVINO, LAKESHA DO Unavailable Unavailable VIRGINIA-ALVINO, LAKESHA DO Unavailable Unavailable VIRGINIA-ALVINO, LAKESHA DO Unavailable Unavailable VIRGINIA-ALVINO, LAKESHA DO Unavailable Unavailable VIRGINIA-ALVINO, LAKESHA DO Unavailable Unavailable VIRGINIA-ALVINO, LAKESHA DO Unavailable Unavailable VIRGINIA-ALVINO, LAKESHA DO Unavailable Unavailable VIRGINIA-ALVINO, LAKESHA DO Unavailable Unavailable VIRGINIA-ALVINO, LAKESHA DO Unavailable Unavailable VIRGINIA-ALVINO, LAKESHA DO Unavailable Unavailable VIRGINIA-ALVINO, LAKESHA DO Unavailable Unavailable VIRGINIA-ALVINO, LAKESHA DO Unavailable Unavailable VIRGINIA-ALVINO, LAKESHA DO Unavailable Unavailable VIRGINIA-ALVINO, LAKESHA DO Unavailable Unavailable VIRGINIA-ALVINO, LAKESHA DO Unavailable Unavailable VIRGINIA-ALVINO, LAKESHA DO Unavailable Unavailable VIRGINIA-ALVINO, LAKESHA DO Unavailable Unavailable VIRGINIA-ALVINO, LAKESHA DO Unavailable Unavailable VIRGINIA-ALVINO, LAKESHA DO Unavailable Unavailable VIRGINIA-ALVINO, LAKESHA DO Unavailable Unavailable VIRGINIA-ALVINO, LAKESHA DO Unavailable Unavailable VIRGINIA-ALVINO, LAKESHA DO Unavailable Unavailable VIRGINIA-ALVINO, LAKESHA DO Unavailable Unavailable VIRGINIA-ALVINO, LAKESHA DO Unavailable Unavailable VIRGINIA-ALVINO, LAKESHA DO Unavailable Unavailable VIRGINIA-ALVINO, LAKESHA DO Unavailable Unavailable VIRGINIA-ALVINO, LAKESHA DO Unavailable Unavailable VIRGINIA-ALVINO, LAKESHA DO Unavailable Unavailable VIRGINIA-ALVINO, LAKESHA DO Unavailable Unavailable VIRGINIA-ALVINO, LAKESHA DO Unavailable Unavailable VIRGINIA-ALVINO, LAKESHA DO Unavailable Unavailable VIRGINIA-ALVINO, LAKESHA DO Unavailable Unavailable VIRGINIA-ALVINO, LAKESHA DO Unavailable Unavailable VIRGINIA-ALVINO, LAKESHA DO Unavailable Unavailable VIRGINIA-ALVINO, LAKESHA DO Unavailable Unavailable VIRGINIA-ALVINO, LAKESHA DO Unavailable Unavailable VIRGINIA-ALVINO, LAKESHA DO Unavailable Unavailable VIRGINIA-ALVINO, LAKESHA DO Unavailable Unavailable VIRGINIA-ALVINO, LAKESHA DO Unavailable Unavailable VIRGINIA-ALVINO, LAKESHA DO Unavailable Unavailable VIRGINIA-ALVINO, LAKESHA DO Unavailable Unavailable VIRGINIA-ALVINO, LAKESHA DO Unavailable Unavailable VIRGINIA-ALVINO, LAKESHA DO Unavailable Unavailable VIRGINIA-ALVINO, LAKESHA DO Unavailable Unavailable O'jacinda, A Andrew PA Unavailable Unavailable O'jacinda, A Andrew PA Unavailable Unavailable O'jacinda, A Andrew PA Unavailable Unavailable O'jacinda, A Andrew PA Unavailable Unavailable O'jacinda, A Andrew PA Unavailable Unavailable O'jacinda, A Andrew PA Unavailable Unavailable O'jacinda, A Andrew PA Unavailable Unavailable O'jacinda, A Andrew PA Unavailable Unavailable O'jacinda, A Andrew PA Unavailable Unavailable O'jacinda, A Andrew PA Unavailable Unavailable O'jacinda, A Andrew PA Unavailable Unavailable O'jacinda, A Andrew PA Unavailable Unavailable O'jacinda, A Andrew PA Unavailable Unavailable O'jacinda, A Andrew PA Unavailable Unavailable O'jacinda, A Andrew PA Unavailable Unavailable O'jacinda, A Andrew PA Unavailable Unavailable O'jacinda, A Andrew PA Unavailable Unavailable O'jacinda, A Andrew PA Unavailable Unavailable O'jacidna, A Andrew PA Unavailable Unavailable O'jacinda, A Andrew PA Unavailable Unavailable O'jacinda, A Andrew PA Unavailable Unavailable O'jacinda, A Andrew PA Unavailable Unavailable O'jacinda, A Andrew PA Unavailable Unavailable O'jacinda, A Andrew PA Unavailable Unavailable O'jacinda, A Andrew PA Unavailable Unavailable O'jacinda, A Andrew PA Unavailable Unavailable O'jacinda, A Andrew PA Unavailable Unavailable O'jacinda, A Andrew PA Unavailable Unavailable O'jacinda, A Andrew PA Unavailable Unavailable O'jacinda, A Andrew PA Unavailable Unavailable O'jacinda, A Andrew PA Unavailable Unavailable O'jacinda, A Andrew PA Unavailable Unavailable O'jacinda, A Andrew PA Unavailable Unavailable Re-disclosure Warning The records that you are about to access may contain information from federally-assisted alcohol or drug abuse programs. If such information is present, then the following federally mandated warning applies: This information has been disclosed to you from records protected by federal confidentiality rules (42 CFR part 2). The federal rules prohibit you from making any further disclosure of this information unless further disclosure is expressly permitted by the written consent of the person to whom it pertains or as otherwise permitted by 42 CFR part 2. A general authorization for the release of medical or other information is NOT sufficient for this purpose. The Federal rules restrict any use of the information to criminally investigate or prosecute any alcohol or drug abuse patient.The records that you are about to access may contain highly sensitive health information, the redisclosure of which is protected by Article 27-F of the [facility] Public Health law. If you continue you may have access to information: Regarding HIV / AIDS; Provided by facilities licensed or operated by the [facility] Office of Mental Health; or Provided by the [facility] Office for People With Developmental Disabilities. If such information is present, then the following [facility] mandated warning applies: This information has been disclosed to you from confidential records which are protected by state law. State law prohibits you from making any further disclosure of this information without the specific written consent of the person to whom it pertains, or as otherwise permitted by law. Any unauthorized further disclosure in violation of state law may result in a fine or mcfp sentence or both. A general authorization for the release of medical or other information is NOT sufficient authorization for further disc losure. Family History Family Member Name Family Member Gender Family Member Status Date o f Status Description Data Source(s) Unknown Male Problem [facility] ([facility] () - age 74 Unknown Unknown Problem [facility] ([facility]) Unknown Unknown Problem [facility] ([facility]) Unknown Unknown Problem [facility] ([facility], ) Unknown Unknown Problem [facility] ([facility], ) Unknown Unknown Problem [facility] ([facility], ) Unknown Unknown Problem [facility] ([facility], ) Encounters Encounter Providers Location Date Indications Data Source(s ) Outpatient Attender: Franklyn TAN [facility] 10/19/2020 10:00:00 AM EST [facility] ([facility]) Outpatient Attender: Franklyn TAN [facility] 07/20/2020 11:00:00 AM EDT [facility] ([facility]) Outpatient Attender: LAKESHA DESAI [facility] 06/22/2020 03:00:00 PM EDT [facility] ([facility]) Outpatient Attender: LAKESHA DESAI [facility] 04/13/2020 10:20:00 AM EDT [facility] ([facility]) Outpatient Attender: Andrew TAN [facility] 01/06/2020 12:00:00 PM EST [facility] ([facility]) Medications Medication Brand Name Start Date Product Form Dose Route Admi nistrative Instructions Pharmacy Instructions Status Indications Reaction Description Data Source(s) Temazepam 15 MG Oral Capsule Temazepam 07/20/2020 12:00:00 AM EDT ORAL active [facility] ([facility]) 24 HR Oxybutynin chloride 5 MG Extended Release Oral T ablet Oxybutynin Chloride ER 07/20/2020 12:00:00 AM EDT ORAL active [facility] ([facility]) Meclizine Hydrochloride 25 MG Oral Tablet Meclizine HCL 06/22/2020 12:00:00 AM EDT ORAL completed [facility] ([facility]) Trazodone Hydrochloride 50 MG Oral Tablet Trazodone HCL 06/22/2020 12:00:00 AM EDT ORAL completed [facility] ([facility]) Azelastine HCL (Nasal) Azelastine HCL (Nasal) 06/22/2020 12:00:00 AM E DT active [facility] ([facility]) Hydroxyzine Hydrochloride 10 MG Oral Tablet Hydroxyzine HCL 02/09/2020 12:00:00 AM EDT ORAL completed [facility] ([facility]) Levothyroxine Sodium 0.125 MG Oral Tablet Levothyroxine Sodi um 01/06/2020 12:00:00 AM EST ORAL active M [facility] ([facility]) Cholecalciferol 41945 UNT Oral Tablet Vitamin D3 Ultra Poten cy 01/05/2020 12:00:00 AM EST ORAL active M [facility] ([facility]) Insurance Providers Payer name Policy type / Coverage type Policy ID Covered constitution party ID Covered constitution party's relationship to [place] Policy [place] Plan Information BCBS CLARE HMO [id number] SP [id number] BCBS CLARE HMO [id number] SP [id number] [place] PPO 302/307 [id number] SP [id number] [place] Commercial [id number] Self [id number] EXCELLUS BCBS B [id number] S [id number] [place] PPO 302/307 [id number] SP [id number] SELF PAY ONLY UNAVAILABLE SP UNAV AILABLE MVP MCDO [id number] SP [id number] MVP HEALTH CARE O [id number] S [id number] MVP Health Plans Commercial [id number] Self [id number] MVP I [id number] Self [id number] GREAT DIVIDE INS CO [id number] SP [id number] MVP EXCHANGE U [id number] Self [id number] [facility] W/C BOARD [id number] SP [id number] US DEPT OF LABOR WC [id number] SP [id number] [place] DEPT OF LABOR WC UNAVAILABLE SP UNAVAILABLE GREAT DIVISION UNAVAILABLE [place]YAPA VAILABLE TOTAL ERIVORMENT [id number] SP [id number] MVP MEDICAID [id number] Julia [id number] MVP [id number] Julia [id number] TOTAL ERIVOMENT O [id number] S [id number] Total Erivorment Workers Compensation Self MVP HEALTH CARE HEA [id number] Excellus BCBS Medigap Part B Family Dependent MVP Medicaid Health Maintenance Organization (HMO) Self MEDICAID HEALTH MAINTENANCE ORGANIZATION HEA [id number] MVP HEALTH CARE HEA [id number] [facility] I [id number] Self [id number] MVP HEALTH CARE [id number] SP [id number] MVP HEALTH CARE O [id number] S [id number] MEDICAID [id number] SP [id number] GHI FAMILY HLTH PLUS [id number] SP [id number] UN COMMUNITY PLAN MCDO [id number] SP [id number] [place]BS [place] PPO 302/307 [id number] SP [id number] SELF PAY UNAVAILABLE UNAVAILA BLE [facility] PHY [id number] SP [id number] [facility] P [id number] S [id number] EXCELLUS BCBS P [id number] S [id number] Problems, Conditions, and Diagnoses Code Display Name Description Problem Type Effective Dates Data Source(s) [id number] Pure hypercholesterolemia Pure hypercholesterolemia Pr oblem 01/06/2020 12:00:00 AM EST [facility] ([facility]) Results ID Date Data Source [id number] 07/07/2020 06:20:00 AM EDT [facility] ([facility]) Name Value Range Interpretation Code Description Data Shelly rce(s) Supporting Document(s) Blood Urea Nitrogen 18 mg/dL 7-18 Normal (applies to non-nume ginger results) [facility] ([facility]) Glucose, Fasting 96 mg/dL 70-100 Normal (applies to non-numeric results) [facility] ([facility]) Creatinine For GFR 0.72 mg/dL 0.55-1.30 Normal (applies to non -numeric results) [facility] ([facility]) Glomerular Filtration Rate Laboratory test result Normal (applies to non- numeric results) [facility] ([facility]) <content>Units are mL/min/1.73 m2</content>
<content></content>
<content>Chronic Kidney Disease Staging per NKF:</content>
<content></content>
<content>Stage I & II GFR >=60 Normal to Mildly Decreased</content>
<content>Stage III GFR 30-59 Moderately Decreased</content>
<content>Stage IV GFR 15-29 Severely Decreased</content>
<content>Stage V GFR <15 Very Little GFR Left</content>
<content>ESRD GFR <15 on ADVERTISING EDITOR</content>
<content></content> Sodium Level 143 meq/L 136-145 Normal (applies to non-numeric res ults) [facility] ([facility]) Potassium Serum 4.0 meq/L 3.5-5.1 Normal (applies to non-numeric results) [facility] ([facility]) Chloride Level 109 meq/L 98-107 Above high normal [facility] ([facility]) Carbon Dioxide Level 29 meq/L 21-32 Normal (applies to non-num nathalia results) [facility] ([facility]) Anion Gap 5 meq/L 8-16 Below low normal [facility] ( [facility]) Calcium Level 8.9 mg/dL 8.8-10.2 Normal (applies to non-numeric re sults) [facility] ([facility]) Alt/SGPT 21 U/L 12-78 Normal (applies to non-numeric resul ts) [facility] ([facility]) Ast/Sgot 19 U/L 7-37 Normal (applies to non-numeric resul ts) [facility] ([facility]) Alkaline Phosphatase 98 U/L 45-117 Normal (applies to non-num nathalia results) [facility]) Bilirubin,Total 0.4 mg/dL 0.2-1.0 Normal (applies to non-numeric results) [facility] ([facility]) Total Protein 6.6 GM/DL 6.4-8.2 Normal (applies to non-numeric re sults) [facility] ([facility]) Albumin 3.6 GM/DL 3.2-5.2 Normal (applies to non-numeric resul ts) [facility] ([facility]) Albumin/Globulin Ratio 1.2 1.2-2.2 Normal (applies to non-n umeric results) [facility] ([facility]) ID Date Data Source [id number] 07/07/2020 06:20:00 AM EDT [facility] ([facility]) Name Value Range Interpretation Code Description Data Shelly rce(s) Supporting Document(s) Gamma glutamyl transferase [Enzymatic activity/volume] in Se rum or Plasma 9 U/L 5-55 Normal (applies to non-numeric results) [facility] ([facility]) ID Date Data Source [id number] 07/07/2020 06:20:00 AM EDT [facility] ([facility]) Name Value Range Interpretation Code Description Data Shelly rce(s) Supporting Document(s) Thyroid Stimulating Hormone Laboratory test result 0.358-3.740 Normal (applies to non-numeric results) [facility] ([facility]) Test not performed. Please resubmit wit new order and sample. Free T4 Laboratory test result 0.76-1.46 Normal (a pplies to non-numeric results) [facility] ([facility]) Test not performed. Please resubmit wit h new order and sample. ID Date Data Source [id number] 06/09/2020 08:09:00 PM EDT [facility] ([facility]) Name Value Range Interpretation Code Description Data Shelly rce(s) Supporting Document(s) Glucose [Mass/volume] in Capillary blood by Glucometer 85 mg/dL 80-115 Normal (applies to non-numeric results) [facility] ([facility]) ID Date Data Source [id number] 06/09/2020 02:37:00 PM EDT [facility] ([facility]) Name Value Range Interpretation Code Description Data Shelly rce(s) Supporting Document(s) Reflex Urine Culture Laboratory test result Norm al (applies to non-numeric results) [facility] ([facility]) FULL REPORT IN LAB NOTES (eCW and [facility] ). SPECIMEN APPEARS CONTAMINATED ID Date Data Source [id number] 06/09/2020 02:37:00 PM EDT [facility] ([facility]) Name Value Range Interpretation Code Description Data Shelly rce(s) Supporting Document(s) Appearance, Urine RFX Laboratory test result Nor mal (applies to non-numeric results) [facility] ([facility]) Color, Urine RFX Laboratory test result Normal ( applies to non-numeric results) [facility] ([facility]) Specific [place] Ur Auto RFX 1.020 1.002-1.035 Nor mal (applies to non-numeric results) [facility] ([facility]) PH,Urine RFX 5.0 units 5.0-9.0 Normal (applies to non-numeric res ults) [facility] ([facility]) Protein, Urine Auto RFX Laboratory test result N ormal (applies to non-numeric results) [facility] ([facility]) Glucose, Urine (Ua) Auto RFX Laboratory test result Normal (applies to non- numeric results) [facility] ([facility]) Ketone, Urine Auto RFX Laboratory test result No rmal (applies to non-numeric results) [facility] ([facility]) Urobilinogen, Urine Auto RFX 0.2 mg/dL 0.0-2.0 Nor mal (applies to non-numeric results) [facility] ([facility]) Bilirubin, Urine Auto RFX Laboratory test result Normal (applies to non- numeric results) [facility] ([facility]) Nitrite, Urine Auto RFX Laboratory test result N ormal (applies to non-numeric results) [facility] ([facility]) Leukocyte Esterase Ur Auto RFX Laboratory test result Abov e high normal [facility] ([facility]) WBC, Urine Auto RFX 1 /HPF 0-3 Normal (applies to non-nume ginegr results) [facility] ([facility]) Blood, Urine Blood RFX Laboratory test result No rmal (applies to non-numeric results) [facility] ([facility]) Bacteria, Urine Auto RFX Laboratory test result Normal (applies to non-numeric results) [facility] ([facility]) RBC, Urine Auto RFX 0 /HPF 0-3 Normal (applies to non-nume ginger results) [facility] ([facility]) Mucus, Urine RFX Laboratory test result Normal ( applies to non-numeric results) [facility] ([facility]) Squam Epithelial Cell Ur Aurfx 1 /HPF 0-6 N ormal (applies to non-numeric results) [facility] ([facility]) Hyaline Cast, Urine Auto RFX 0 /LPF 0-1 Normal (appl ies to non-numeric results) [facility] ([facility]) ID Date Data Source [id number] 06/09/2020 12:21:00 PM EDT [facility] ([facility]) Name Value Range Interpretation Code Description Data Shelly rce(s) Supporting Document(s) Laboratory test finding (navigational concept) 41.0 % 3 8.0-51.0 Normal (applies to non-numeric results) [facility] ([facility]) Laboratory test finding (navigational concept) 69 mg/dL 70-105 Below low normal [facility] ([facility]) Laboratory test finding (navigational concept) 142 meq/L 1 36-145 Normal (applies to non-numeric results) [facility] ([facility]) Laboratory test finding (navigational concept) 4.6 meq/L 3 .5-5.1 Normal (applies to non-numeric results) [facility] ([facility]) Laboratory test finding (navigational concept) 4.5 mg/dL 4 .5-5.3 Normal (applies to non-numeric results) [facility] ([facility]) Laboratory test finding (navigational concept) 107 meq/L 9 8-109 Normal (applies to non-numeric results) [facility] ([facility]) Laboratory test finding (navigational concept) 27.0 MM/L 2 3.0-27.0 Normal (applies to non-numeric results) [facility] ([facility]) Laboratory test finding (navigational concept) 17 mg/dL 8 -26 Normal (applies to non-numeric results) [facility] ([facility]) Laboratory test finding (navigational concept) 0.6 mg/dL 0 .6-1.3 Normal (applies to non-numeric results) [facility] ([facility]) ID Date Data Source [id number] 06/09/2020 12:20:00 PM EDT [facility] ([facility]) Name Value Range Interpretation Code Description Data Shelly rce(s) Supporting Document(s) T Uptake 32 % 30-39 Normal (applies to non-numeric resul ts) [facility] ([facility]) Free Thyroxine Index 3.3 % 1.3-4.8 Normal (applies to non-num nathalia results) [facility] ([facility]) Thyroxine (T4) 10.4 ug/dL 4.5-12.0 Normal (applies to non-numeric r esults) [facility] ([facility]) Thyroid Stimulating Hormone 0.089 uIU/ML 0.358-3.740 Below low normal [facility] ([facility]) ID Date Data Source [id number] 06/09/2020 12:20:00 PM EDT [facility] ([facility]) Name Value Range Interpretation Code Description Data Shelly rce(s) Supporting Document(s) Magnesium [Mass/volume] in Serum or Plasma 2.2 mg/dL 1.8-2 .4 Normal (applies to non-numeric results) [facility] ([facility]) Thyrotropin [Units/volume] in Serum or Plasma 0.089 uIU/ML 0. 358-3.740 Below low normal [facility] ([facility]) ID Date Data Source [id number] 06/09/2020 12:20:00 PM EDT [facility] ([facility]) Name Value Range Interpretation Code Description Data Shelly rce(s) Supporting Document(s) Alt/SGPT 31 U/L 12-78 Normal (applies to non-numeric resul ts) [facility] ([facility]) Ast/Sgot 58 U/L 7-37 Above high normal [facility] ([facility]) Testing was performed on a hemolysed spe cimen. Suggest recollection of specimen for more accurate test results. Alkaline Phosphatase 85 U/L 45-117 Normal (applies to non-num nathalia results) [facility] ([facility]) Bilirubin,Total 0.4 mg/dL 0.2-1.0 Normal (applies to non-numeric results) [facility] ([facility]) Total Protein 6.7 GM/DL 6.4-8.2 Normal (applies to non-numeric re sults) [facility] ([facility]) Bilirubin,Direct Laboratory test result 0.0-0.2 Normal ( applies to non-numeric results) [facility] ([facility]) Albumin/Globulin Ratio 0.9 1.2-2.2 Below low normal [facility] ([facility]) Albumin 3.2 GM/DL 3.2-5.2 Normal (applies to non-numeric resul ts) [facility] ([facility]) ID Date Data Source [id number] 06/09/2020 12:20:00 PM EDT [facility] ([facility]) Name Value Range Interpretation Code Description Data Shelly rce(s) Supporting Document(s) White Blood Count 5.4 10 4.0-10.0 Normal (applies to non-numeri c results) [facility] ([facility]) Red Blood Count 4.64 10 4.00-5.40 Normal (applies to non-numeric results) [facility] ([facility]) Mean Corpuscular Volume 89.7 fl 80.0-96.0 Normal ( applies to non-numeric results) [facility] ([facility]) Hematocrit 41.6 % 36.0-47.0 Normal (applies to non-numeric resul ts) [facility] ([facility]) Hemoglobin 13.2 g/dL 12.0-15.5 Normal (applies to non-numeric resul ts) [facility] ([facility]) Mean Corpuscular Hemoglobin 28.4 pg 27.0-33.0 Norm al (applies to non-numeric results) [facility] ([facility]) Mean Corpuscular HGB Conc 31.7 g/dL 32.0-36.5 Below low normal [facility] ([facility]) Red Cell Distribution Width 13.2 % 11.5-14.5 Norm al (applies to non-numeric results) [facility] ([facility]) Platelet Count, Automated 240 10 150-450 Normal (applies to non-numeric results) [facility] ([facility]) Neutrophils % 47.0 % 36.0-66.0 Normal (applies to non-numeric re sults) [facility] ([facility]) Lymph % 37.2 % 24.0-44.0 Normal (applies to non-numeric resul ts) [facility] ([facility]) Eos % 3.0 % 0.0-3.0 Normal (applies to non-numeric resul ts) [facility] ([facility]) [place] % 11.5 % 0.0-5.0 Above high normal [facility] ([facility]) Baso % 1.1 % 0.0-1.0 Above high normal [facility] ([facility]) Immature Granulocyte % 0.2 % 0-3.0 Normal (applies to non-n umeric results) [facility] ([facility]) Nucleated Red Blood Cell % 0.0 % 0-0 Normal (applies to n on-numeric results) [facility] ([facility]) Lymph # 2.0 10 1.5-5.0 Normal (applies to non-numeric resul ts) [facility] ([facility]) Neutrophils # 2.5 10 1.5-8.5 Normal (applies to non-numeric re sults) [facility] ([facility]) Eos # 0.2 10 0.0-0.5 Normal (applies to non-numeric resul ts) [facility] ([facility]) [place] # 0.6 10 0.0-0.8 Normal (applies to non-numeric resul ts) [facility] ([facility]) Baso # 0.1 10 0.0-0.2 Normal (applies to non-numeric resul ts) [facility] ([facility]) ID Date Data Source [id number] 04/12/2020 06:23:00 AM EDT [facility] ([facility]) Name Value Range Interpretation Code Description Data Shelly rce(s) Supporting Document(s) Vitamin B12 Level 386 pg/mL Normal (applies to non-numeri c results) [facility] ([facility]) VITAMIN B12 NORMAL RANGE NORMAL 247 - 911 PG/ML INDETERMINATE 211 - 246 PG/ML DEFICIENT LESS THAN 211 PG/ML Folate 9.7 ng/mL Normal (applies to non-numeric resul ts) [facility] ([facility]) FOLATE NORMAL RANGE NORMAL GREATER THAN 5.4 NG/ML INDETERMINATE 3.4-5.4 NG/ML DEFICIENT LESS THAN 3.4 NG/ML ID Date Data Source [id number] 04/12/2020 06:23:00 AM EDT [facility] ([facility]) Name Value Range Interpretation Code Description Data Shelly rce(s) Supporting Document(s) Hemoglobin 14.0 g/dL 12.0-15.5 Normal (applies to non-numeric resul ts) [facility] ([facility]) Red Blood Count 5.01 10 4.00-5.40 Normal (applies to non-numeric results) [facility] ([facility]) White Blood Count 6.1 10 4.0-10.0 Normal (applies to non-numeri c results) [facility] ([facility]) Mean Corpuscular Volume 89.0 fl 80.0-96.0 Normal ( applies to non-numeric results) [facility] ([facility]) Hematocrit 44.6 % 36.0-47.0 Normal (applies to non-numeric resul ts) [facility] ([facility]) Mean Corpuscular Hemoglobin 27.9 pg 27.0-33.0 Norm al (applies to non-numeric results) [facility] ([facility]) Platelet Count, Automated 217 10 150-450 Normal (applies to non-numeric results) [facility] ([facility]) Mean Corpuscular HGB Conc 31.4 g/dL 32.0-36.5 Below low normal [facility] ([facility]) Neutrophils % 49.2 % 36.0-66.0 Normal (applies to non-numeric re sults) [facility] ([facility]) Red Cell Distribution Width 12.5 % 11.5-14.5 Norm al (applies to non-numeric results) [facility] ([facility]) Lymph % 37.8 % 24.0-44.0 Normal (applies to non-numeric resul ts) [facility] ([facility]) [place] % 9.2 % 0.0-5.0 Above high normal [facility] ([facility]) Eos % 2.8 % 0.0-3.0 Normal (applies to non-numeric resul ts) [facility] ([facility]) Immature Granulocyte % 0.2 % 0-3.0 Normal (applies to non-n umeric results) [facility] ([facility]) Baso % 0.8 % 0.0-1.0 Normal (applies to non-numeric resul ts) [facility] ([facility]) Nucleated Red Blood Cell % 0.0 % 0-0 Normal (applies to n on-numeric results) [facility] ([facility]) [place] # 0.6 10 0.0-0.8 Normal (applies to non-numeric resul ts) [facility] ([facility]) Neutrophils # 3.0 10 1.5-8.5 Normal (applies to non-numeric re sults) [facility] ([facility]) Lymph # 2.3 10 1.5-5.0 Normal (applies to non-numeric resul ts) [facility] ([facility]) Eos # 0.2 10 0.0-0.5 Normal (applies to non-numeric resul ts) [facility] ([facility]) Baso # 0.1 10 0.0-0.2 Normal (applies to non-numeric resul ts) [facility] ([facility]) ID Date Data Source [id number] 04/12/2020 06:23:00 AM EDT [facility] ([facility]) Name Value Range Interpretation Code Description Data Shelly rce(s) Supporting Document(s) Thyroid Stimulating Hormone 0.421 uIU/ML 0.358-3.740 Norm al (applies to non- numeric results) [facility] ([facility]) Free T4 1.40 ng/dL 0.76-1.46 Normal (applies to non-numeric resul ts) [facility] ([facility]) ID Date Data Source [id number] 04/12/2020 06:23:00 AM EDT [facility] ([facility]) Name Value Range Interpretation Code Description Data Shelly rce(s) Supporting Document(s) Calcidiol [Mass/volume] in Serum or Plasma 53.6 ng/mL 30.0- 100.0 Normal (applies to non-numeric results) [facility] ([facility]) ID Date Data Source [id number] 04/12/2020 06:23:00 AM EDT [facility] ([facility]) Name Value Range Interpretation Code Description Data Shelly rce(s) Supporting Document(s) Glucose, Fasting 85 mg/dL 70-100 Normal (applies to non-numeric results) [facility] ([facility]) Blood Urea Nitrogen 20 mg/dL 7-18 Above high normal [facility] ([facility]) Creatinine For GFR 0.77 mg/dL 0.55-1.30 Normal (applies to non -numeric results) [facility] ([facility]) Glomerular Filtration Rate Laboratory test result Normal (applies to non- numeric results) [facility] ([facility]) <content>Units are mL/min/1.73 m2</content>
<content></content>
<content>Chronic Kidney Disease Staging per NKF:</content>
<content></content>
<content>Stage I & II GFR >=60 Normal to Mildly Decreased</content>
<content>Stage III GFR 30- 59 Moderately Decreased</content>
<content>Stage IV GFR 15-29 Severely Decreased</content>
<content>Stage V GFR <15 Very Little GFR Left</content>
<content>ESRD GFR <15 on ADVERTISING EDITOR</content>
<content></content> Sodium Level 143 meq/L 136-145 Normal (applies to non-numeric res ults) [facility] ([facility]) Potassium Serum 4.1 meq/L 3.5-5.1 Normal (applies to non-numeric results) [facility] ([facility]) Chloride Level 107 meq/L 98-107 Normal (applies to non-numeric r esults) [facility] ([facility]) Carbon Dioxide Level 30 meq/L 21-32 Normal (applies to non-num nathalia results) [facility] ([facility]) Calcium Level 8.6 mg/dL 8.8-10.2 Below low normal [facility] ([facility]) Ast/Sgot 16 U/L 7-37 Normal (applies to non-numeric resul ts) [facility] ([facility]) Anion Gap 6 meq/L 8-16 Below low normal [facility] ( [facility]) Alt/SGPT 26 U/L 12-78 Normal (applies to non-numeric resul ts) [facility] ([facility]) Alkaline Phosphatase 92 U/L 45-117 Normal (applies to non-num nathalia results) [facility] ([facility]) Bilirubin,Total 0.6 mg/dL 0.2-1.0 Normal (applies to non-numeric results) [facility] ([facility]) Total Protein 6.6 GM/DL 6.4-8.2 Normal (applies to non-numeric re sults) [facility] ([facility]) Albumin/Globulin Ratio 1.1 1.2-2.2 Below low normal [facility] Albumin 3.5 GM/DL 3.2-5.2 Normal (applies to non-numeric resul ts) [facility] ([facility]) ID Date Data Source [id number] 04/12/2020 06:23:00 AM EDT [facility] ([facility]) Name Value Range Interpretation Code Description Data Shelly rce(s) Supporting Document(s) Cholesterol Level 236 mg/dL Above high normal [facility] ([facility]) Triglycerides Level 148 mg/dL Normal (applies to non-nume ginger results) [facility] ([facility]) LDL Cholesterol 141 mg/dL Above high normal [facility] ([facility]) Non-HDL-C 171 mg/dL Normal (applies to non-numeric resul ts) [facility] ([facility]) HDL Cholesterol 65 mg/dL Normal (applies to non-numeric results) [facility] ([facility]) Cholesterol Risk Ratio 3.630 Normal (applies to non-n umeric results) [facility] ([facility]) ID Date Data Source [id number] 04/06/2020 08:42:00 AM EDT [facility] ([facility]) Name Value Range Interpretation Code Description Data Shelly rce(s) Supporting Document(s) Coronavirus 2019 Nasopharygeal Laboratory test result [facility] ([facility]) Testing was performed using the kana(R) SARS-CoV-2 test. This test was developed and its performance characteristics determined by [employer]. This test has not been FDA cleared or approved. This test has been authorized by FDA under an Emergency Use Authorization (EUA). This test is only authorized for the duration of time the declaration that circumstances exist justifying the authorization of the emergency use of in vitro diagnostic tests for detection of SARS-CoV-2 virus and/or diagnosis of COVID-19 infection under section 564(b)(1) of the Act, 21 U.S.C. 360bbb-3(b)(1), unless the authorization is terminated or revoked sooner. When diagnostic testing is negative, the possibility of a false negative result should be considered in the context of a patient's recent exposures and the presence of clinical signs and symptoms consistent with COVID-19. An individual without symptoms of COVID-19 and who is not shedding SARS-CoV-2 virus would expect to have a negative (not detected) result in this assay. Performed at: [address] [id number] [employer] Machine Operator: Yoanna Park MD, Phone: [phone] Not Detected ID Date Data Source [id number] 04/06/2020 08:42:00 AM EDT [facility] ([facility]) Name Value Range Interpretation Code Description Data Shelly rce(s) Supporting Document(s) Laboratory test finding (navigational concept) Laboratory test r esult Normal (applies to non-numeric results) [facility] ([facility]) RP PANEL RESULT NEGATIVE b y MULTIPLEXED NUCLEIC ACID PCR ID Date Data Source [id number] 04/06/2020 08:42:00 AM EDT [facility] Name Value Range Interpretation Code Description Data Shelly rce(s) Supporting Document(s) SARS CORONAVIRUS 2 RNA [facility] This lab was ordered by [facility] and reported by [facility]. ID Date Data Source [id number] 04/06/2020 08:37:00 AM EDT [facility] ([facility]) Name Value Range Interpretation Code Description Data Shelly rce(s) Supporting Document(s) Gats Culture (Neg Strep SCR) Laboratory test result Normal (applies to non- numeric results) [facility] ([facility]) FULL REPORT IN LAB NOTES ([facility] and [facility] ). NEGATIVE FOR STREP PYOGENES (GROUP A) ID Date Data Source [id number] 01/05/2020 07:52:00 AM EST [facility] ([facility]) Name Value Range Interpretation Code Description Data Shelly rce(s) Supporting Document(s) Triiodothyronine (T3) Free [Mass/volume] in Serum or Plasma 2.2 pg/mL 2.2-4.0 Normal (applies to non-numeric results) [facility] ([facility]) ID Date Data Source [id number] 01/05/2020 07:52:00 AM EST [facility] ([facility]) Name Value Range Interpretation Code Description Data Shelly rce(s) Supporting Document(s) Free T4 1.11 ng/dL 0.76-1.46 Normal (applies to non-numeric resul ts) [facility] ([facility]) Thyroid Stimulating Hormone 5.590 uIU/ML 0.358-3.740 Above high [place] l [facility] ([facility]) ID Date Data Source [id number] 01/05/2020 07:52:00 AM EST [facility] ([facility]) Name Value Range Interpretation Code Description Data Shelly rce(s) Supporting Document(s) Iron [Mass/volume] in Serum or Plasma 45 ug/dL 50-170 Below low normal [facility] ([facility]) ID Date Data Source [id number] 01/05/2020 07:52:00 AM EST [facility] ([facility]) Name Value Range Interpretation Code Description Data Shelly rce(s) Supporting Document(s) HDL Cholesterol 66 mg/dL Normal (applies to non-numeric results) [facility] ([facility]) Cholesterol Level 229 mg/dL Above high normal [facility] Triglycerides Level 69 mg/dL Normal (applies to non-nume ginger results) [facility] ([facility]) Cholesterol Risk Ratio 3.469 Normal (applies to non-n umeric results) [facility] ([facility]) LDL Cholesterol 149 mg/dL Above high normal [facility] ([facility]) Non-HDL-C 163 mg/dL Normal (applies to non-numeric resul ts) [facility] ([facility]) ID Date Data Source [id number] 01/05/2020 07:52:00 AM EST [facility] ([facility]) Name Value Range Interpretation Code Description Data Shelly rce(s) Supporting Document(s) Blood Urea Nitrogen 14 mg/dL 7-18 Normal (applies to non-nume ginger results) [facility] ([facility]) Glucose, Fasting 84 mg/dL 70-100 Normal (applies to non-numeric results) [facility] ([facility]) Creatinine For GFR 0.74 mg/dL 0.55-1.30 Normal (applies to non -numeric results) [facility] ([facility]) Sodium Level 141 meq/L 136-145 Normal (applies to non-numeric res ults) [facility] ([facility]) Potassium Serum 4.1 meq/L 3.5-5.1 Normal (applies to non-numeric results) [facility] ([facility]) Glomerular Filtration Rate Laboratory test result Normal (applies to non- numeric results) [facility] ([facility]) <content>Units are mL/min/1.73 m2</content>
<content></content>
<content>Chronic Kidney Disease Staging per NKF:</content>
<content></content>
<content>Stage I & II GFR >=60 Normal to Mildly Decreased</content>
<content>Stage III GFR 30- 59 Moderately Decreased</content>
<content>Stage IV GFR 15-29 Severely Decreased</content>
<content>Stage V GFR <15 Very Little GFR Left</content>
<content>ESRD GFR <15 on ADVERTISING EDITOR</content>
<content></content> Carbon Dioxide Level 27 meq/L 21-32 Normal (applies to non-num nathalia results) [facility] ([facility]) Anion Gap 8 meq/L 8-16 Normal (applies to non-numeric resul ts) [facility] ([facility]) Chloride Level 106 meq/L 98-107 Normal (applies to non-numeric r esults) [facility] ([facility]) Ast/Sgot 15 U/L 7-37 Normal (applies to non-numeric resul ts) [facility] ([facility]) Calcium Level 8.9 mg/dL 8.5-10.1 Normal (applies to non-numeric re sults) [facility] ([facility]) Alt/SGPT 23 U/L 12-78 Normal (applies to non-numeric resul ts) [facility] ([facility]) Total Protein 6.5 GM/DL 6.4-8.2 Normal (applies to non-numeric re sults) [facility] ([facility]) Alkaline Phosphatase 93 U/L 45-117 Normal (applies to non-num nathalia results) [facility] ([facility]) Bilirubin,Total 0.5 mg/dL 0.2-1.0 Normal (applies to non-numeric results) [facility] ([facility]) Albumin 3.8 GM/DL 3.2-5.2 Normal (applies to non-numeric resul ts) [facility] ([facility]) Albumin/Globulin Ratio 1.41 1.00-1.93 Normal (applies to non-numeric results) [facility] ([facility]) ID Date Data Source [id number] 01/05/2020 07:52:00 AM EST [facility] ([facility]) Name Value Range Interpretation Code Description Data Shelly rce(s) Supporting Document(s) White Blood Count 6.3 10 4.0-10.0 Normal (applies to non-numeri c results) [facility] ([facility]) Red Blood Count 4.60 10 4.00-5.40 Normal (applies to non-numeric results) [facility] ([facility]) Hematocrit 41.3 % 36.0-47.0 Normal (applies to non-numeric resul ts) [facility] ([facility]) Mean Corpuscular Volume 89.8 fl 80.0-96.0 Normal ( applies to non-numeric results) [facility] ([facility]) Hemoglobin 13.0 g/dL 12.0-15.5 Normal (applies to non-numeric resul ts) [facility] ([facility]) Mean Corpuscular Hemoglobin 28.3 pg 27.0-33.0 Norm al (applies to non-numeric results) [facility] ([facility]) Red Cell Distribution Width 13.0 % 11.5-14.5 Norm al (applies to non-numeric results) [facility] ([facility]) Mean Corpuscular HGB Conc 31.5 g/dL 32.0-36.5 Below low normal [facility] ([facility]) Platelet Count, Automated 229 10 150-450 Normal (applies to non-numeric results) [facility] ([facility]) Neutrophils % 53.8 % 36.0-66.0 Normal (applies to non-numeric re sults) [facility] ([facility]) Lymph % 33.5 % 24.0-44.0 Normal (applies to non-numeric resul ts) [facility] ([facility]) [place] % 9.0 % 0.0-5.0 Above high normal [facility] ([facility]) Baso % 0.9 % 0.0-1.0 Normal (applies to non-numeric resul ts) [facility] ([facility]) Eos % 2.5 % 0.0-3.0 Normal (applies to non-numeric resul ts) [facility] ([facility]) Immature Granulocyte % 0.3 % 0-3.0 Normal (applies to non-n umeric results) [facility] ([facility]) Lymph # 2.1 10 1.5-5.0 Normal (applies to non-numeric resul ts) [facility] ([facility]) Nucleated Red Blood Cell % 0.0 % 0-0 Normal (applies to n on-numeric results) [facility] ([facility]) Neutrophils # 3.4 10 1.5-8.5 Normal (applies to non-numeric re sults) [facility] ([facility]) Baso # 0.1 10 0.0-0.2 Normal (applies to non-numeric resul ts) [facility] ([facility]) Eos # 0.2 10 0.0-0.5 Normal (applies to non-numeric resul ts) [facility] ([facility]) [place] # 0.6 10 0.0-0.8 Normal (applies to non-numeric resul ts) [facility] ([facility]) Procedure Social History Code Duration Value Status Description Data Source(s ) Smoking 10/19/2020 12:00:00 AM EST Patient has never smoked co mpleted Patient has never smoked [facility] ([facility]) Vital Signs ID Date Data Source UNK Name Value Range Interpretation Code Description Data Source(s) Oxygen saturation in Arterial blood by Pulse oximetry 96 % 96 % [facility] ([facility]) Body temperature 97.8 [degF] 97.8 [degF] [facility] ([facility]) Respiratory rate 22 /min 22 /min [facility] ( [facility]) Heart rate 75 /min 75 /min [facility] ([facility]) Body mass index (BMI) [Ratio] 32.8 kg/m2 32.8 k [facility] Body weight 188.00 [lb_av] 188.00 [lb_av] [facility] ([facility]) Body height 63.5 [in_i] 63.5 [in_i] [facility] 5'3.50" Diastolic blood pressure 88 mm[Hg] 88 mm[Hg] [facility] ([facility]) 134/70 recheck lg cuff Systolic blood pressure 144 mm[Hg] 144 mm[Hg] [facility] ([facility]) 134/70 recheck lg cuff [place] body weight 115 [lb_av] 115 [lb_av] [facility] ([facility]) [place] body weight 115 [lb_av] 115 [lb_av] [facility] ([facility]) Oxygen saturation in Arterial blood by Pulse oximetry 97 % 97 % [facility] ([facility]) Body temperature 96.2 [degF] 96.2 [degF] [facility] ([facility]) Respiratory rate 18 /min 18 /min [facility] Heart rate 78 /min 78 /min [facility] ([facility]) Body mass index (BMI) [Ratio] 32.6 kg/m2 32.6 k g/m2 [facility] ([facility]) Body weight 187.00 [lb_av] 187.00 [lb_av] [facility] ([facility]) Body height 63.5 [in_i] 63.5 [in_i] [facility] ([facility]) 5'3.50" Diastolic blood pressure 68 mm[Hg] 68 mm[Hg] [facility] ([facility]) Systolic blood pressure 122 mm[Hg] 122 mm[Hg] [facility] ([facility]) Oxygen saturation in Arterial blood by Pulse oximetry 98 % 98 % [facility] ([facility]) Body temperature 98.1 [degF] 98.1 [degF] [facility] ([facility]) Respiratory rate 18 /min 18 /min [facility] ( [facility]) Heart rate 67 /min 67 /min [facility] ([facility]) Body mass index (BMI) [Ratio] 32.5 kg/m2 32.5 k g/m2 [facility] ([facility]) Body weight 186.38 [lb_av] 186.38 [lb_av] [facility] ([facility]) Body height 63.5 [in_i] 63.5 [in_i] [facility] ([facility]) 5'3.50" Diastolic blood pressure 78 mm[Hg] 78 mm[Hg] [facility] ([facility]) Systolic blood pressure 124 mm[Hg] 124 mm[Hg] [facility] ([facility]) Oxygen saturation in Arterial blood by Pulse oximetry 95 % 95 % [facility] ([facility]) Body temperature 97.1 [degF] 97.1 [degF] [facility] ([facility]) Respiratory rate 18 /min 18 /min [facility] ( [facility]) Heart rate 84 /min 84 /min [facility] ([facility]) Body mass index (BMI) [Ratio] 32.4 kg/m2 32.4 k g/m2 [facility] ([facility]) Body weight 186.12 [lb_av] 186.12 [lb_av] [facility] ([facility]) Body height 63.5 [in_i] 63.5 [in_i] [facility] ([facility]) " Diastolic blood pressure 76 mm[Hg] 76 mm[Hg] [facility] ([facility]) Systolic blood pressure 126 mm[Hg] 126 mm[Hg] Shayla [facility] ([facility]) Oxygen saturation in Arterial blood by Pulse oximetry 97 % 97 % [facility] ([facility]) Body temperature 98.4 [degF] 98.4 [degF] [facility] ([facility]) Respiratory rate 18 /min 18 /min [facility] ( [facility]) Heart rate 71 /min 71 /min [facility] ([facility]) Body mass index (BMI) [Ratio] 32.6 kg/m2 32.6 k g/m2 [facility] ([facility]) Body weight 187.00 [lb_av] 187.00 [lb_av] [facility] ([facility]) Body height 63.5 [in_i] 63.5 [in_i] [facility] ([facility]) 50" Diastolic blood pressure 78 mm[Hg] 78 mm[Hg] [facility] ([facility]) Systolic blood pressure 128 mm[Hg] 128 mm[Hg] Shayla [facility] ([facility])
[2021-01-15] MEDS ORDERED: ACETAMINOPHEN 325 MG TAB PO ONE (08:30)
--- OUTSIDE RECORDS SUMMARY | 2021-01-15 08:36 | CCD ---
Author Author [facility] Organization [facility] Address Unknown Phone Unavailable Care Team Providers Care Industrial Services Worker Name Role Phone Franklyn Mcdonald Unavailable Unavailable Franklyn Mcdonald Unavailable Unavailable Franklyn Mcdonald Unavailable Unavailable Franklyn Mcdonald Unavailable Unavailable Franklyn Mcdonald Unavailable Unavailable Franklyn Mcdonald Unavailable Unavailable Franklyn Mcdonald Unavailable Unavailable Franklyn Mcdonald Unavailable Unavailable rFanklyn Mcdonald Unavailable Unavailable Harry, Franklyn PA Unavailable [...] Unavailable Unavailable VIRGINIA-ALVINO, LAKESHA DO Unavailable Unavailable VIRGINIA-ALVION, LAKESHA DO Unavailable Unavailable VIRGINIA-ALVINO, LAKESHA DO [...] is protected by Article 27-F of the [facility] Public Health law. If you continue you may have access to information: Regarding HIV / AIDS; Provided by facilities licensed or operated by the [facility] Office of Mental Health; or Provided by the [facility] Office for People With Developmental Disabilities. If such information is present, then the following [facility] mandated warning applies: This information has [...] law may result in a fine or fdc sentence or both. A general authorization for [...] [facility] Unknown Unknown Problem [facility] ([facility] ) Unknown Unknown Problem [facility] ([facility], ) Unknown Unknown Problem [facility] ([facility] ) Unknown Unknown Problem [facility] ([facility], ) Encounters Encounter Providers Location Date Indications Data Source(s ) Outpatient Attender: Franklyn TAN [facility] 10/19/2020 10:00:00 AM EST [facility] ([facility]) Outpatient Attender: Franklyn TAN [facility] 07/20/2020 11:00:00 AM EDT [facility] ([facility]) Outpatient Attender: LAKESHA DESAI [facility] 06/22/2020 03:00:00 PM EDT [facility] ([facility]) Outpatient Attender: LAKESHA DESAI [facility] 04/13/2020 10:20:00 AM EDT [facility] ([facility]) Outpatient Attender: Andrew TAN [facility] 01/06/2020 12:00:00 PM EST [facility] ([facility]) Medications Medication Brand Name Start Date Product Form Dose Route Admi nistrative Instructions Pharmacy Instructions Status Indications Reaction Description Data Source(s) Temazepam 15 MG Oral Capsule Temazepam 07/20/2020 12:00:00 AM EDT ORAL active [facility] ([facility]) 24 HR Oxybutynin chloride 5 MG Extended Release Oral T ablet Oxybutynin Chloride ER 07/20/2020 12:00:00 AM EDT ORAL active [facility] ([facility]) Meclizine Hydrochloride 25 MG Oral Tablet Meclizine HCL 06/22/2020 12:00:00 AM EDT ORAL completed [facility] ([facility]) Trazodone Hydrochloride 50 MG Oral Tablet Trazodone HCL 06/22/2020 12:00:00 AM EDT ORAL completed [facility] ([facility]) Azelastine HCL (Nasal) Azelastine HCL (Nasal) 06/22/2020 12:00:00 AM E DT active [facility] ([facility]) Hydroxyzine Hydrochloride 10 MG Oral Tablet Hydroxyzine HCL 02/09/2020 12:00:00 AM EDT ORAL completed [facility] ([facility]) Levothyroxine Sodium 0.125 MG Oral Tablet Levothyroxine Sodi um 01/06/2020 12:00:00 AM EST ORAL active M [facility] ([facility]) Cholecalciferol 67393 UNT Oral Tablet Vitamin D3 Ultra Poten cy 01/05/2020 12:00:00 AM EST ORAL active M [facility] ([facility]) Insurance Providers Payer name Policy type / Coverage type Policy ID Covered libertarian ID Covered libertarian's relationship to markham Policy [place] Plan Information PMA MANAGEMENT [facility] [id number] SP [id number] BCBS CLARE HMO [id number] SP [id number] BCBS CLARE HMO [id number] SP [id number] [place]/307 [id number] SP [id number] [place] Commercial [id number] Self [id number] EXCELLUS BCBS B [id number] S [id number] [place] P[place] 302/307 [id number] SP [id number] SELF PAY ONLY UNAVAILABLE SP UNAV AILABLE MVP MCDO [id number] SP [id number] MVP HEALTH CARE O [id number] S [id number] MVP Health Plans Commercial [id number] Self [id number] MVP I [id number] Self [id number] GREAT DIVIDE INS CO [id number] SP [id number] MVP EXCHANGE U [id number] Self [id number] [facility] W/C BOARD [id number] SP [id number] US DEPT OF LABOR WC [id number] SP [id number] US DEPT OF LABOR WC UNAVAILABLE SP UNAVAILABLE GREAT DIVISION UNAVAILABLE [place]A VAILABLE TOTAL ERIVORMENT [id number] SP [id number] MVP MEDICAID [id number] Julia [id number] MVP [id number] Julia [id number] TOTAL ERIVOMENT O [id number] S [id number] Total Erivorment Workers Compensation Self MVP HEALTH CARE HEA [id number] Excellus BCBS Medigap Part B Family Dependent MVP Medicaid Health Maintenance Organization (HMO) Self MEDICAID HEALTH MAINTENANCE ORGANIZATION HEA [id number] [facility] HEA [id number] [facility] I [id number] Self [id number] [facility] [id number] SP [id number] [facility] O [id number] S [id number] MEDICAID [id number] SP [id number] GHI FAMILY HLTH PLUS [id number] SP [id number] UNHC COMMUNITY PLAN MCDO [id number] SP [id number] [place]BS [place] PPO 302/307 [id number] SP [id number] SELF PAY UNAVAILABLE UNAVAILA BLE [facility] PHY [id number] SP [id number] [facility] P [id number] S [id number] EXCELLUS BCBS P [id number] S [id number] Problems, Conditions, and Diagnoses Code Display Name Description Problem Type Effective Dates Data Source(s) [id number] Pure hypercholesterolemia Pure hypercholesterolemia Pr oblem 01/06/2020 12:00:00 AM EST [facility] Results ID Date Data Source [id number] 07/07/2020 06:20:00 AM EDT [facility] ([facility]) Name Value Range Interpretation Code Description Data Shelly rce(s) Supporting Document(s) Blood Urea Nitrogen 18 mg/dL 7-18 Normal (applies to non-nume ginger results) [facility] ([facility]) Glucose, Fasting 96 mg/dL 70-100 Normal (applies to non-numeric results) [facility] ([facility]) Creatinine For GFR 0.72 mg/dL 0.55-1.30 Normal (applies to non -numeric results) [facility] ([facility]) Glomerular Filtration Rate Laboratory test result Normal (applies to non- numeric results) [facility] ([facility]) <content>Units are mL/min/1.73 m2</content>
<content></content>
<content>Chronic Kidney Disease Staging per NKF:</content>
<content></content>
<content>Stage I & II GFR >=60 Normal to Mildly Decreased</content>
<content>Stage III GFR 30-59 Moderately Decreased</content>
<content>Stage IV GFR 15-29 Severely Decreased</content>
<content>Stage V GFR <15 Very Little GFR Left</content>
<content>ESRD GFR <15 on PHARMACY INFORMATICS SPECIALIST</content>
<content></content> Sodium Level 143 meq/L 136-145 Normal (applies to non-numeric res ults) [facility] ([facility]) Potassium Serum 4.0 meq/L 3.5-5.1 Normal (applies to non-numeric results) [facility] ([facility]) Chloride Level 109 meq/L 98-107 Above high normal [facility] ([facility]) Carbon Dioxide Level 29 meq/L 21-32 Normal (applies to non-num nathalia results) [facility] ([facility]) Anion Gap 5 meq/L 8-16 Below low normal [facility] ( [facility]) Calcium Level 8.9 mg/dL 8.8-10.2 Normal (applies to non-numeric re sults) [facility] ([facility]) Alt/SGPT 21 U/L 12-78 Normal (applies to non-numeric resul ts) [facility] ([facility]) Ast/Sgot 19 U/L 7-37 Normal (applies to non-numeric resul ts) [facility] ([facility]) Alkaline Phosphatase 98 U/L 45-117 Normal (applies to non-num nathalia results) [facility] ([facility]) Bilirubin,Total 0.4 mg/dL 0.2-1.0 Normal (applies to non-numeric results) [facility] ([facility]) Total Protein 6.6 GM/DL 6.4-8.2 Normal (applies to non-numeric re sults) [facility] ([facility]) Albumin 3.6 GM/DL 3.2-5.2 Normal (applies to non-numeric resul ts) [facility] ([facility]) Albumin/Globulin Ratio 1.2 1.2-2.2 Normal (applies to non-n umeric results) [facility] ([facility]) ID Date Data Source [id number] 07/07/2020 06:20:00 AM EDT [facility] ([facility]) Name Value Range Interpretation Code Description Data Shelly rce(s) Supporting Document(s) Gamma glutamyl transferase [Enzymatic activity/volume] in Se rum or Plasma 9 U/L 5-55 Normal (applies to non-numeric results) [facility] ([facility]) ID Date Data Source [id number] 07/07/2020 06:20:00 AM EDT [facility]) Name Value Range Interpretation Code Description Data Shelly rce(s) Supporting Document(s) Thyroid Stimulating Hormone Laboratory test result 0.358-3.740 Normal (applies to non-numeric results) [facility] ([facility]) Test not performed. Please resubmit [facility] new order and sample. Free T4 Laboratory test result 0.76-1.46 Normal (a pplies to non-numeric results) [facility] ([facility]) Test not performed. Please resubmit [facility] new order and sample. ID Date Data Source [id number] 06/09/2020 08:09:00 PM EDT [facility] ([facility]) Name Value Range Interpretation Code Description Data Shelly rce(s) Supporting Document(s) Glucose [Mass/volume] in Capillary blood by Glucometer 85 mg/dL 80-115 Normal (applies to non-numeric results) [facility] ([facility]) ID Date Data Source [id number] 06/09/2020 02:37:00 PM EDT [facility] ([facility]) Name Value Range Interpretation Code Description Data Shelly rce(s) Supporting Document(s) Reflex Urine Culture Laboratory test result Norm al (applies to non-numeric results) [facility] ([facility]) FULL REPORT IN LAB NOTES (eCW and [facility] ). SPECIMEN APPEARS CONTAMINATED ID Date Data Source [id number] 06/09/2020 02:37:00 PM EDT [facility]) Name Value Range Interpretation Code Description Data Shelly rce(s) Supporting Document(s) Appearance, Urine RFX Laboratory test result Nor mal (applies to non-numeric results) [facility] ([facility]) Color, Urine RFX Laboratory test result Normal ( applies to non-numeric results) [facility] ([facility]) Specific [place] Ur Auto RFX 1.020 1.002-1.035 Nor mal (applies to non-numeric results) [facility] ([facility]) PH,Urine RFX 5.0 units 5.0-9.0 Normal (applies to non-numeric res ults) [facility] ([facility]) Protein, Urine Auto RFX Laboratory test result N ormal (applies to non-numeric results) [facility] ([facility]) Glucose, Urine (Ua) Auto RFX Laboratory test result Normal (applies to non- numeric results) [facility] ([facility]) Ketone, Urine Auto RFX Laboratory test result No rmal (applies to non-numeric results) [facility] ([facility]) Urobilinogen, Urine Auto RFX 0.2 mg/dL 0.0-2.0 Nor mal (applies to non-numeric results) [facility] ([facility]) Bilirubin, Urine Auto RFX Laboratory test result Normal (applies to non- numeric results) [facility] ([facility]) Nitrite, Urine Auto RFX Laboratory test result N ormal (applies to non-numeric results) [facility] ([facility]) Leukocyte Esterase Ur Auto RFX Laboratory test result Abov e high normal [facility] ([facility]) WBC, Urine Auto RFX 1 /HPF 0-3 Normal (applies to non-nume ginger results) [facility] ([facility]) Blood, Urine Blood RFX Laboratory test result No rmal (applies to non-numeric results) [facility] ([facility]) Bacteria, Urine Auto RFX Laboratory test result Normal (applies to non-numeric results) [facility] ([facility]) RBC, Urine Auto RFX 0 /HPF 0-3 Normal (applies to non-nume ginger results) [facility] ([facility]) Mucus, Urine RFX Laboratory test result Normal ( applies to non-numeric results) [facility] ([facility]) Squam Epithelial Cell Ur Aurfx 1 /HPF 0-6 N ormal (applies to non-numeric results) [facility] ([facility]) Hyaline Cast, Urine Auto RFX 0 /LPF 0-1 Normal (appl ies to non-numeric results) [facility] ([facility]) ID Date Data Source [id number] 06/09/2020 12:21:00 PM EDT [facility] ([facility]) Name Value Range Interpretation Code Description Data Shelly rce(s) Supporting Document(s) Laboratory test finding (navigational concept) 41.0 % 3 8.0-51.0 Normal (applies to non-numeric results) [facility] ([facility]) Laboratory test finding (navigational concept) 69 mg/dL 70-105 Below low normal [facility] ([facility]) Laboratory test finding (navigational concept) 142 meq/L 1 36-145 Normal (applies to non-numeric results) [facility] ([facility]) Laboratory test finding (navigational concept) 4.6 meq/L 3 .5-5.1 Normal (applies to non-numeric results) [facility] ([facility]) Laboratory test finding (navigational concept) 4.5 mg/dL 4 .5-5.3 Normal (applies to non-numeric results) [facility] ([facility]) Laboratory test finding (navigational concept) 107 meq/L 9 8-109 Normal (applies to non-numeric results) [facility] ([facility]) Laboratory test finding (navigational concept) 27.0 MM/L 2 3.0-27.0 Normal (applies to non-numeric results) [facility] ([facility]) Laboratory test finding (navigational concept) 17 mg/dL 8 -26 Normal (applies to non-numeric results) [facility] ([facility]) Laboratory test finding (navigational concept) 0.6 mg/dL 0 .6-1.3 Normal (applies to non-numeric results) [facility] ([facility]) ID Date Data Source [id number] 06/09/2020 12:20:00 PM EDT [facility] ([facility]) Name Value Range Interpretation Code Description Data Shelly rce(s) Supporting Document(s) T Uptake 32 % 30-39 Normal (applies to non-numeric resul ts) [facility] ([facility]) Free Thyroxine Index 3.3 % 1.3-4.8 Normal (applies to non-num nathalia results) [facility] ([facility]) Thyroxine (T4) 10.4 ug/dL 4.5-12.0 Normal (applies to non-numeric r esults) [facility] ([facility]) Thyroid Stimulating Hormone 0.089 uIU/ML 0.358-3.740 Below low normal [facility] ([facility]) ID Date Data Source [id number] 06/09/2020 12:20:00 PM EDT [facility] ([facility]) Name Value Range Interpretation Code Description Data Shelly rce(s) Supporting Document(s) Magnesium [Mass/volume] in Serum or Plasma 2.2 mg/dL 1.8-2 .4 Normal (applies to non-numeric results) [facility] ([facility]) Thyrotropin [Units/volume] in Serum or Plasma 0.089 uIU/ML 0. 358-3.740 Below low normal [facility] ([facility]) ID Date Data Source [id number] 06/09/2020 12:20:00 PM EDT [facility] ([facility]) Name Value Range Interpretation Code Description Data Shelly rce(s) Supporting Document(s) Alt/SGPT 31 U/L 12-78 Normal (applies to non-numeric resul ts) [facility] ([facility]) Ast/Sgot 58 U/L 7-37 Above high normal [facility] ([facility]) Testing was performed on a hemolysed spe cimen. Suggest recollection of specimen for more accurate test results. Alkaline Phosphatase 85 U/L 45-117 Normal (applies to non-num nathalia results) [facility] ([facility]) Bilirubin,Total 0.4 mg/dL 0.2-1.0 Normal (applies to non-numeric results) [facility] ([facility]) Total Protein 6.7 GM/DL 6.4-8.2 Normal (applies to non-numeric re sults) [facility] ([facility]) Bilirubin,Direct Laboratory test result 0.0-0.2 Normal ( applies to non-numeric results) [facility] ([facility]) Albumin/Globulin Ratio 0.9 1.2-2.2 Below low normal [facility] ([facility]) Albumin 3.2 GM/DL 3.2-5.2 Normal (applies to non-numeric resul ts) [facility] ([facility]) ID Date Data Source [id number] 06/09/2020 12:20:00 PM EDT [facility] ([facility]) Name Value Range Interpretation Code Description Data Shelly rce(s) Supporting Document(s) White Blood Count 5.4 10 4.0-10.0 Normal (applies to non-numeri c results) [facility] ([facility]) Red Blood Count 4.64 10 4.00-5.40 Normal (applies to non-numeric results) [facility] ([facility]) Mean Corpuscular Volume 89.7 fl 80.0-96.0 Normal ( applies to non-numeric results) [facility] ([facility]) Hematocrit 41.6 % 36.0-47.0 Normal (applies to non-numeric resul ts) [facility] ([facility]) Hemoglobin 13.2 g/dL 12.0-15.5 Normal (applies to non-numeric resul ts) [facility] ([facility]) Mean Corpuscular Hemoglobin 28.4 pg 27.0-33.0 Norm al (applies to non-numeric results) [facility] ([facility]) Mean Corpuscular HGB Conc 31.7 g/dL 32.0-36.5 Below low normal [facility] ([facility]) Red Cell Distribution Width 13.2 % 11.5-14.5 Norm al (applies to non-numeric results) [facility] ([facility]) Platelet Count, Automated 240 10 150-450 Normal (applies to non-numeric results) [facility] ([facility]) Neutrophils % 47.0 % 36.0-66.0 Normal (applies to non-numeric re sults) [facility] ([facility]) Lymph % 37.2 % 24.0-44.0 Normal (applies to non-numeric resul ts) [facility] ([facility]) Eos % 3.0 % 0.0-3.0 Normal (applies to non-numeric resul ts) [facility] ([facility]) [place] % 11.5 % 0.0-5.0 Above high normal [facility] ([facility]) Baso % 1.1 % 0.0-1.0 Above high normal [facility] ([facility]) Immature Granulocyte % 0.2 % 0-3.0 Normal (applies to non-n umeric results) [facility] ([facility]) Nucleated Red Blood Cell % 0.0 % 0-0 Normal (applies to n on-numeric results) [facility] ([facility]) Lymph # 2.0 10 1.5-5.0 Normal (applies to non-numeric resul ts) [facility] ([facility]) Neutrophils # 2.5 10 1.5-8.5 Normal (applies to non-numeric re sults) [facility] ([facility]) Eos # 0.2 10 0.0-0.5 Normal (applies to non-numeric resul ts) [facility] ([facility]) [place] # 0.6 10 0.0-0.8 Normal (applies to non-numeric resul ts) [facility] ([facility]) Baso # 0.1 10 0.0-0.2 Normal (applies to non-numeric resul ts) [facility] ([facility]) ID Date Data Source [id number] 04/12/2020 06:23:00 AM EDT [facility] ([facility]) Name Value Range Interpretation Code Description Data Shelly rce(s) Supporting Document(s) Vitamin B12 Level 386 pg/mL Normal (applies to non-numeri c results) [facility] ([facility]) VITAMIN B12 NORMAL RANGE NORMAL 247 - 911 PG/ML INDETERMINATE 211 - 246 PG/ML DEFICIENT LESS THAN 211 PG/ML Folate 9.7 ng/mL Normal (applies to non-numeric resul ts) [facility] ([facility]) FOLATE NORMAL RANGE NORMAL GREATER THAN 5.4 NG/ML INDETERMINATE 3.4-5.4 NG/ML DEFICIENT LESS THAN 3.4 NG/ML ID Date Data Source [id number] 04/12/2020 06:23:00 AM EDT [facility] ([facility]) Name Value Range Interpretation Code Description Data Shelly rce(s) Supporting Document(s) Hemoglobin 14.0 g/dL 12.0-15.5 Normal (applies to non-numeric resul ts) [facility] ([facility]) Red Blood Count 5.01 10 4.00-5.40 Normal (applies to non-numeric results) [facility] ([facility]) White Blood Count 6.1 10 4.0-10.0 Normal (applies to non-numeri c results) [facility] ([facility]) Mean Corpuscular Volume 89.0 fl 80.0-96.0 Normal ( applies to non-numeric results) [facility] ([facility]) Hematocrit 44.6 % 36.0-47.0 Normal (applies to non-numeric resul ts) [facility] ([facility]) Mean Corpuscular Hemoglobin 27.9 pg 27.0-33.0 Norm al (applies to non-numeric results) [facility] ([facility]) Platelet Count, Automated 217 10 150-450 Normal (applies to non-numeric results) [facility] ([facility]) Mean Corpuscular HGB Conc 31.4 g/dL 32.0-36.5 Below low normal [facility] ([facility]) Neutrophils % 49.2 % 36.0-66.0 Normal (applies to non-numeric re sults) [facility] ([facility]) Red Cell Distribution Width 12.5 % 11.5-14.5 Norm al (applies to non-numeric results) [facility] ([facility]) Lymph % 37.8 % 24.0-44.0 Normal (applies to non-numeric resul ts) [facility] ([facility]) [place] % 9.2 % 0.0-5.0 Above high normal [facility] ([facility]) Eos % 2.8 % 0.0-3.0 Normal (applies to non-numeric resul ts) [facility] ([facility]) Immature Granulocyte % 0.2 % 0-3.0 Normal (applies to non-n umeric results) [facility] ([facility]) Baso % 0.8 % 0.0-1.0 Normal (applies to non-numeric resul ts) [facility] ([facility]) Nucleated Red Blood Cell % 0.0 % 0-0 Normal (applies to n on-numeric results) [facility] ([facility]) [place] # 0.6 10 0.0-0.8 Normal (applies to non-numeric resul ts) [facility] ([facility]) Neutrophils # 3.0 10 1.5-8.5 Normal (applies to non-numeric re sults) [facility] ([facility]) Lymph # 2.3 10 1.5-5.0 Normal (applies to non-numeric resul ts) [facility] ([facility]) Eos # 0.2 10 0.0-0.5 Normal (applies to non-numeric resul ts) [facility] ([facility]) Baso # 0.1 10 0.0-0.2 Normal (applies to non-numeric resul ts) [facility] ([facility]) ID Date Data Source [id number] 04/12/2020 06:23:00 AM EDT [facility] ([facility]) Name Value Range Interpretation Code Description Data Shelly rce(s) Supporting Document(s) Thyroid Stimulating Hormone 0.421 uIU/ML 0.358-3.740 Norm al (applies to non- numeric results) [facility] ([facility]) Free T4 1.40 ng/dL 0.76-1.46 Normal (applies to non-numeric resul ts) [facility] ([facility]) ID Date Data Source [id number] 04/12/2020 06:23:00 AM EDT [facility] ([facility]) Name Value Range Interpretation Code Description Data Shelly rce(s) Supporting Document(s) Calcidiol [Mass/volume] in Serum or Plasma 53.6 ng/mL 30.0- 100.0 Normal (applies to non-numeric results) [facility] ([facility]) ID Date Data Source [id number] 04/12/2020 06:23:00 AM EDT [facility]) Name Value Range Interpretation Code Description Data Shelly rce(s) Supporting Document(s) Glucose, Fasting 85 mg/dL 70-100 Normal (applies to non-numeric results) [facility] ([facility]) Blood Urea Nitrogen 20 mg/dL 7-18 Above high normal [facility] ([facility]) Creatinine For GFR 0.77 mg/dL 0.55-1.30 Normal (applies to non -numeric results) [facility] ([facility]) Glomerular Filtration Rate Laboratory test result Normal (applies to non- numeric results) [facility] ([facility]) <content>Units are mL/min/1.73 m2</content>
<content></content>
<content>Chronic Kidney Disease Staging per NKF:</content>
<content></content>
<content>Stage I & II GFR >=60 Normal to Mildly Decreased</content>
<content>Stage III GFR 30- 59 Moderately Decreased</content>
<content>Stage IV GFR 15-29 Severely Decreased</content>
<content>Stage V GFR <15 Very Little GFR Left</content>
<content>ESRD GFR <15 on PHARMACY INFORMATICS SPECIALIST</content>
<content></content> Sodium Level 143 meq/L 136-145 Normal (applies to non-numeric res ults) [facility] ([facility]) Potassium Serum 4.1 meq/L 3.5-5.1 Normal (applies to non-numeric results) [facility] ([facility]) Chloride Level 107 meq/L 98-107 Normal (applies to non-numeric r esults) [facility] ([facility]) Carbon Dioxide Level 30 meq/L 21-32 Normal (applies to non-num nathalia results) [facility] ([facility]) Calcium Level 8.6 mg/dL 8.8-10.2 Below low normal [facility] ([facility]) Ast/Sgot 16 U/L 7-37 Normal (applies to non-numeric resul ts) [facility] ([facility]) Anion Gap 6 meq/L 8-16 Below low normal [facility] ( [facility]) Alt/SGPT 26 U/L 12-78 Normal (applies to non-numeric resul ts) [facility] ([facility]) Alkaline Phosphatase 92 U/L 45-117 Normal (applies to non-num nathalia results) [facility] ([facility]) Bilirubin,Total 0.6 mg/dL 0.2-1.0 Normal (applies to non-numeric results) [facility] ([facility]) Total Protein 6.6 GM/DL 6.4-8.2 Normal (applies to non-numeric re sults) [facility] ([facility]) Albumin/Globulin Ratio 1.1 1.2-2.2 Below low normal [facility] Albumin 3.5 GM/DL 3.2-5.2 Normal (applies to non-numeric resul ts) [facility] ([facility]) ID Date Data Source [id number] 04/12/2020 06:23:00 AM EDT [facility] ([facility]) Name Value Range Interpretation Code Description Data Shelly rce(s) Supporting Document(s) Cholesterol Level 236 mg/dL Above high normal [facility] ([facility]) Triglycerides Level 148 mg/dL Normal (applies to non-nume ginger results) [facility] ([facility]) LDL Cholesterol 141 mg/dL Above high normal [facility] ([facility]) Non-HDL-C 171 mg/dL Normal (applies to non-numeric resul ts) [facility] ([facility]) HDL Cholesterol 65 mg/dL Normal (applies to non-numeric results) [facility] ([facility]) Cholesterol Risk Ratio 3.630 Normal (applies to non-n umeric results) [facility] ([facility]) ID Date Data Source [id number] 04/06/2020 08:42:00 AM EDT [facility] ([facility]) Name Value Range Interpretation Code Description Data Shelly rce(s) Supporting Document(s) Coronavirus 2019 Nasopharygeal Laboratory test result [facility] ([facility]) Testing was performed using the kana(R) SARS-CoV-2 test. This test was developed and its performance characteristics determined by [employer]. This test has not been FDA cleared [...] detected) result in this assay. Performed at: [address] [id number] Supervisory Cbp Officer: Yoanna Park MD, Phone: [phone] Not Detected ID Date Data Source [id number] 04/06/2020 08:42:00 AM EDT [facility] ([facility]) Name Value Range Interpretation Code Description Data Shelly rce(s) Supporting Document(s) Laboratory test finding (navigational concept) Laboratory test r esult Normal (applies to non-numeric results) [facility] ([facility]) RP PANEL RESULT NEGATIVE b y MULTIPLEXED NUCLEIC ACID PCR ID Date Data Source [id number] 04/06/2020 08:42:00 AM EDT [facility] Name Value Range Interpretation Code Description Data Shelly rce(s) Supporting Document(s) SARS CORONAVIRUS 2 RNA [facility] This lab was ordered by [facility] and reported by [facility]. ID Date Data Source [id number] 04/06/2020 08:37:00 AM EDT [facility] ([facility]) Name Value Range Interpretation Code Description Data Shelly rce(s) Supporting Document(s) Gats Culture (Neg Strep SCR) Laboratory test result Normal (applies to non- numeric results) [facility] ([facility]) FULL REPORT IN LAB NOTES ([facility] and [facility] ). NEGATIVE FOR STREP PYOGENES (GROUP A) ID Date Data Source [id number] 01/05/2020 07:52:00 AM EST [facility] ([facility]) Name Value Range Interpretation Code Description Data Shelly rce(s) Supporting Document(s) Triiodothyronine (T3) Free [Mass/volume] in Serum or Plasma 2.2 pg/mL 2.2-4.0 Normal (applies to non-numeric results) [facility] ([facility]) ID Date Data Source [id number] 01/05/2020 07:52:00 AM EST [facility] ([facility]) Name Value Range Interpretation Code Description Data Shelly rce(s) Supporting Document(s) Free T4 1.11 ng/dL 0.76-1.46 Normal (applies to non-numeric resul ts) [facility] ([facility]) Thyroid Stimulating Hormone 5.590 uIU/ML 0.358-3.740 Above high [place] l [facility] ([facility]) ID Date Data Source [id number] 01/05/2020 07:52:00 AM EST [facility] ([facility]) Name Value Range Interpretation Code Description Data Shelly rce(s) Supporting Document(s) Iron [Mass/volume] in Serum or Plasma 45 ug/dL 50-170 Below low normal [facility] ([facility]) ID Date Data Source [id number] 01/05/2020 07:52:00 AM EST [facility] ([facility]) Name Value Range Interpretation Code Description Data Shelly rce(s) Supporting Document(s) HDL Cholesterol 66 mg/dL Normal (applies to non-numeric results) [facility] ([facility]) Cholesterol Level 229 mg/dL Above high normal [facility] ([facility]) Triglycerides Level 69 mg/dL Normal (applies to non-nume ginger results) [facility] ([facility]) Cholesterol Risk Ratio 3.469 Normal (applies to non-n umeric results) [facility] ([facility]) LDL Cholesterol 149 mg/dL Above high normal [facility] ([facility]) Non-HDL-C 163 mg/dL Normal (applies to non-numeric resul ts) [facility] ([facility]) ID Date Data Source [id number] 01/05/2020 07:52:00 AM EST [facility] ([facility]) Name Value Range Interpretation Code Description Data Shelly rce(s) Supporting Document(s) Blood Urea Nitrogen 14 mg/dL 7-18 Normal (applies to non-nume ginger results) [facility] ([facility]) Glucose, Fasting 84 mg/dL 70-100 Normal (applies to non-numeric results) [facility] ([facility]) Creatinine For GFR 0.74 mg/dL 0.55-1.30 Normal (applies to non -numeric results) [facility] ([facility]) Sodium Level 141 meq/L 136-145 Normal (applies to non-numeric res ults) [facility] ([facility]) Potassium Serum 4.1 meq/L 3.5-5.1 Normal (applies to non-numeric results) [facility] ([facility]) Glomerular Filtration Rate Laboratory test result Normal (applies to non- numeric results) [facility] ([facility]) <content>Units are mL/min/1.73 m2</content>
<content></content>
<content>Chronic Kidney Disease Staging per NKF:</content>
<content></content>
<content>Stage I & II GFR >=60 Normal to Mildly Decreased</content>
<content>Stage III GFR 30- 59 Moderately Decreased</content>
<content>Stage IV GFR 15-29 Severely Decreased</content>
<content>Stage V GFR <15 Very Little GFR Left</content>
<content>ESRD GFR <15 on PHARMACY INFORMATICS SPECIALIST</content>
<content></content> Carbon Dioxide Level 27 meq/L 21-32 Normal (applies to non-num nathalia results) [facility] ([facility]) Anion Gap 8 meq/L 8-16 Normal (applies to non-numeric resul ts) [facility] ([facility]) Chloride Level 106 meq/L 98-107 Normal (applies to non-numeric r esults) [facility] ([facility]) Ast/Sgot 15 U/L 7-37 Normal (applies to non-numeric resul ts) [facility] ([facility]) Calcium Level 8.9 mg/dL 8.5-10.1 Normal (applies to non-numeric re sults) [facility] ([facility]) Alt/SGPT 23 U/L 12-78 Normal (applies to non-numeric resul ts) [facility] ([facility]) Total Protein 6.5 GM/DL 6.4-8.2 Normal (applies to non-numeric re sults) [facility] ([facility]) Alkaline Phosphatase 93 U/L 45-117 Normal (applies to non-num nathalia results) [facility] ([facility]) Bilirubin,Total 0.5 mg/dL 0.2-1.0 Normal (applies to non-numeric results) [facility] ([facility]) Albumin 3.8 GM/DL 3.2-5.2 Normal (applies to non-numeric resul ts) [facility] ([facility]) Albumin/Globulin Ratio 1.41 1.00-1.93 Normal (applies to non-numeric results) [facility] ([facility]) ID Date Data Source [id number] 01/05/2020 07:52:00 AM EST [facility] ([facility]) Name Value Range Interpretation Code Description Data Shelly rce(s) Supporting Document(s) White Blood Count 6.3 10 4.0-10.0 Normal (applies to non-numeri c results) [facility] ([facility]) Red Blood Count 4.60 10 4.00-5.40 Normal (applies to non-numeric results) [facility] ([facility]) Hematocrit 41.3 % 36.0-47.0 Normal (applies to non-numeric resul ts) [facility] ([facility]) Mean Corpuscular Volume 89.8 fl 80.0-96.0 Normal ( applies to non-numeric results) [facility] ([facility]) Hemoglobin 13.0 g/dL 12.0-15.5 Normal (applies to non-numeric resul ts) [facility] ([facility]) Mean Corpuscular Hemoglobin 28.3 pg 27.0-33.0 Norm al (applies to non-numeric results) [facility] ([facility]) Red Cell Distribution Width 13.0 % 11.5-14.5 Norm al (applies to non-numeric results) [facility] ([facility]) Mean Corpuscular HGB Conc 31.5 g/dL 32.0-36.5 Below low normal [facility] ([facility]) Platelet Count, Automated 229 10 150-450 Normal (applies to non-numeric results) [facility] ([facility]) Neutrophils % 53.8 % 36.0-66.0 Normal (applies to non-numeric re sults) [facility] ([facility]) Lymph % 33.5 % 24.0-44.0 Normal (applies to non-numeric resul ts) [facility] ([facility]) [place] % 9.0 % 0.0-5.0 Above high normal [facility] ([facility]) Baso % 0.9 % 0.0-1.0 Normal (applies to non-numeric resul ts) [facility] ([facility]) Eos % 2.5 % 0.0-3.0 Normal (applies to non-numeric resul ts) [facility] ([facility]) Immature Granulocyte % 0.3 % 0-3.0 Normal (applies to non-n umeric results) [facility] ([facility]) Lymph # 2.1 10 1.5-5.0 Normal (applies to non-numeric resul ts) [facility] ([facility]) Nucleated Red Blood Cell % 0.0 % 0-0 Normal (applies to n on-numeric results) [facility] ([facility]) Neutrophils # 3.4 10 1.5-8.5 Normal (applies to non-numeric re sults) [facility] ([facility]) Baso # 0.1 10 0.0-0.2 Normal (applies to non-numeric resul ts) [facility] ([facility]) Eos # 0.2 10 0.0-0.5 Normal (applies to non-numeric resul ts) [facility] ([facility]) [place] # 0.6 10 0.0-0.8 Normal (applies to non-numeric resul ts) [facility] ([facility]) Procedure Social History Code Duration Value Status Description Data Source(s ) Smoking 10/19/2020 12:00:00 AM EST Patient has never smoked co mpleted Patient has never smoked [facility] ([facility]) Vital Signs ID Date Data Source UNK Name Value Range Interpretation Code Description Data Source(s) Oxygen saturation in Arterial blood by Pulse oximetry 96 % 96 % [facility] ([facility]) Body temperature 97.8 [degF] 97.8 [degF] [facility] ([facility]) Respiratory rate 22 /min 22 /min [facility] ( [facility]) Heart rate 75 /min 75 /min [facility] ([facility]) Body mass index (BMI) [Ratio] 32.8 kg/m2 32.8 k g/m2 [facility] ([facility]) Body weight 188.00 [lb_av] 188.00 [lb_av] [facility] ([facility]) Body height 63.5 [in_i] 63.5 [in_i] [facility] ([facility]) 5'3.50" Diastolic blood pressure 88 mm[Hg] 88 mm[Hg] [facility] ([facility]) 134/70 recheck lg cuff Systolic blood pressure 144 mm[Hg] 144 mm[Hg] [facility] ([facility]) 134/70 recheck lg cuff [place] body weight 115 [lb_av] 115 [lb_av] [facility] ([facility]) [place] body weight 115 [lb_av] 115 [lb_av] [facility] ([facility]) Oxygen saturation in Arterial blood by Pulse oximetry 97 % 97 % [facility] ([facility]) Body temperature 96.2 [degF] 96.2 [degF] [facility] ([facility]) Respiratory rate 18 /min 18 /min [facility] ( [facility]) Heart rate 78 /min 78 /min [facility] ([facility]) Body mass index (BMI) [Ratio] 32.6 kg/m2 32.6 k g/m2 [facility] ([facility]) Body weight 187.00 [lb_av] 187.00 [lb_av] [facility] ([facility]) Body height 63.5 [in_i] 63.5 [in_i] [facility] ([facility]) 5'3.50" Diastolic blood pressure 68 mm[Hg] 68 mm[Hg] [facility] ([facility]) Systolic blood pressure 122 mm[Hg] 122 mm[Hg] [facility] ([facility]) Oxygen saturation in Arterial blood by Pulse oximetry 98 % 98 % [facility] ([facility]) Body temperature 98.1 [degF] 98.1 [degF] [facility] ([facility]) Respiratory rate 18 /min 18 /min [facility] ( [facility]) Heart rate 67 /min 67 /min [facility] ([facility]) Body mass index (BMI) [Ratio] 32.5 kg/m2 32.5 k g/m2 [facility] ([facility]) Body weight 186.38 [lb_av] 186.38 [lb_av] [facility] ([facility]) Body height 63.5 [in_i] 63.5 [in_i] [facility] ([facility]) 5'3.50" Diastolic blood pressure 78 mm[Hg] 78 mm[Hg] [facility] ([facility]) Systolic blood pressure 124 mm[Hg] 124 mm[Hg] [facility] ([facility]) Oxygen saturation in Arterial blood by Pulse oximetry 95 % 95 % [facility] ([facility]) Body temperature 97.1 [degF] 97.1 [degF] [facility] ([facility]) Respiratory rate 18 /min 18 /min [facility] ( [facility]) Heart rate 84 /min 84 /min [facility] ([facility]) Body mass index (BMI) [Ratio] 32.4 kg/m2 32.4 k g/m2 [facility] ([facility]) Body weight 186.12 [lb_av] 186.12 [lb_av] [facility] ([facility]) Body height 63.5 [in_i] 63.5 [in_i] [facility] ([facility]) 5'3.50" Diastolic blood pressure 76 mm[Hg] 76 mm[Hg] [facility] ([facility]) Systolic blood pressure 126 mm[Hg] 126 mm[Hg] [facility] ([facility]) Oxygen saturation in Arterial blood by Pulse oximetry 97 % 97 % [facility] Body temperature 98.4 [degF] 98.4 [degF] [facility]) Respiratory rate 18 /min 18 /min [facility] ( [facility]) Heart rate 71 /min 71 /min [facility] ([facility]) Body mass index (BMI) [Ratio] 32.6 kg/m2 32.6 k g/m2 [facility] ([facility]) Body weight 187.00 [lb_av] 187.00 [lb_av] [facility] ([facility]) Body height 63.5 [in_i] 63.5 [in_i] [facility] ([facility]) 5'3.50" Diastolic blood pressure 78 mm[Hg] 78 mm[Hg] [facility] ([facility]) Systolic blood pressure 128 mm[Hg] 128 mm[Hg] [facility]la [facility] ([facility])
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
[2021-01-15 09:15] VITALS: BP 122/57
== END 2021-01-15 09:29 | disposition home or self-care (01) ==
LOC: M ED 07:46
DX: S00.03XA Contusion of scalp, initial encounter (principal); Y04.2XXA Assault by strike against or bumped into by another person, initial encounter; Y92.230 Patient room in hospital as the place of occurrence of the external cause; Y93.9 Activity, unspecified; Y99.0 Civilian activity done for income or pay; Z88.1 Allergy status to other antibiotic agents; Z88.2 Allergy status to sulfonamides; Z88.6 Allergy status to analgesic agent; Z79.899 Other long term (current) drug therapy

== ENCOUNTER 2021-01-16 13:27 | Emergency (ER) | payer OTHER, BC ==
[~2021-01-16] VITALS: Ht 165.1 cm; Wt 83.2 kg
[~2021-01-16 13:27] MED LIST changes: +OXYB5TAB10 PO; +TEMA15CA2 PO
--- OUTSIDE RECORDS SUMMARY | 2021-01-16 13:35 | CCD ---
Author Author [facility] Organization [facility] Address Unknown Phone Unavailable Care Team Providers Care Senior Editor Name Role Phone Franklyn Mcdonald Unavailable Unavailable [...] Unavailable Unavailable VIRGINIA-ALVINO, LAKESHA DO Unavailable Unavailable VRIGINIA-ALVINO, LAKESHA DO Unavailable Unavailable VIRGINIA-ALVINO, LAKESHA DO Unavailable Unavailable VIGRINIA-ALVINO, LAKESHA DO Unavailable Unavailable VIRGINIA-ALVINO, LAKESHA DO [...] is protected by Article 27-F of the [facility] Public Health law. If you continue you may have access to information: Regarding HIV / AIDS; Provided by facilities licensed or operated by the [facility] Office of Mental Health; or Provided by the [facility] Office for People With Developmental Disabilities. If such information is present, then the following [facility] mandated warning applies: This information has [...] law may result in a fine or penitentiary sentence or both. A general authorization for [...] [facility] Unknown Unknown Problem [facility] ([facility], ) Unknown Unknown Problem [facility] ([facility], ) Unknown Unknown Problem [facility] ([facility], ) Unknown Unknown Problem [facility] ([facility], ) Encounters Encounter Providers Location Date Indications Data Source(s ) Outpatient Attender: Franklyn TAN [facility] 10/19/2020 10:00:00 AM EST [facility] ([facility]) Outpatient Attender: Franklyn TAN [facility] 07/20/2020 11:00:00 AM EDT [facility] ([facility]) Outpatient Attender: LAKESHA DESAI [facility] 06/22/2020 03:00:00 PM EDT [facility] ([facility]) Outpatient Attender: LAKESHA DESAI [facility] 04/13/2020 10:20:00 AM EDT [facility] ([facility]) Outpatient Attender: Andrew TAN [facility] 01/06/2020 12:00:00 PM EST [facility] ([facility]) Medications Medication Brand Name Start Date Product Form Dose Route Admi nistrative Instructions Pharmacy Instructions Status Indications Reaction Description Data Source(s) Temazepam 15 MG Oral Capsule Temazepam 07/20/2020 12:00:00 AM EDT ORAL active [facility] ([facility]) 24 HR Oxybutynin chloride 5 MG Extended Release Oral T ablet Oxybutynin Chloride ER 07/20/2020 12:00:00 AM EDT ORAL active [facility] ([facility]) Meclizine Hydrochloride 25 MG Oral Tablet Meclizine HCL 06/22/2020 12:00:00 AM EDT ORAL completed [facility] ([facility]) Trazodone Hydrochloride 50 MG Oral Tablet Trazodone HCL 06/22/2020 12:00:00 AM EDT ORAL completed [facility] ([facility]) Azelastine HCL (Nasal) Azelastine HCL (Nasal) 06/22/2020 12:00:00 AM E DT active [facility] ([facility]) Hydroxyzine Hydrochloride 10 MG Oral Tablet Hydroxyzine HCL 02/09/2020 12:00:00 AM EDT ORAL completed [facility] ([facility]) Levothyroxine Sodium 0.125 MG Oral Tablet Levothyroxine Sodi um 01/06/2020 12:00:00 AM EST ORAL active M [facility] ([facility]) Cholecalciferol 98317 UNT Oral Tablet Vitamin D3 Ultra Poten cy 01/05/2020 12:00:00 AM EST ORAL active M [facility] ([facility]) Insurance Providers Payer name Policy type / Coverage type Policy ID Covered libertarian ID Covered libertarian's relationship to markham Policy [place] Plan Information PMA MANAGEMENT [facility] [id number] SP [id number] BCBS CLARE HMO [id number] SP [id number] BCBS CLARE HMO [id number] SP [id number] [place] PPO 302/307 [id number] SP [id number] BS [place] Commercial [id number] Self [id number] EXCELLUS BCBS B [id number] S [id number] [place] PPO 302/307 [id number] SP [id number] SELF PAY ONLY UNAVAILABLE SP UNAV AILABLE MVP MCDO [id number] SP [id number] MVP HEALTH CARE O [id number] S [id number] MVP Health Plans Commercial [id number] Self [id number] MVP I [id number] Self [id number] GREAT DIVIDE INS CO [id number] SP [id number] MVP EXCHANGE U [id number] Self [id number] [facility] W/C BOARD [id number] SP [id number] US DEPT OF LABOR WC [id number] SP [id number] US DEPT OF LABOR WC UNAVAILABLE SP UNAVAILABLE GREAT DIVISION UNAVAILABLE [place]A VAILABLE TOTAL ERIVORMENT [id number] SP [id number] MVP MEDICAID [id number] Julia [id number] MVP [id number] Julia [id number] TOTAL ERIVOMENT O [id number] S [id number] Total Erivorment Workers Compensation Self MVP HEALTH CARE HEA [id number] Excellus BCBS Medigap Part B Family Dependent MVP Medicaid Health Maintenance Organization (HMO) Self MEDICAID HEALTH MAINTENANCE ORGANIZATION HEA [id number] [facility] HEALTH CARE HEA [id number] [facility] I [id number] Self [id number] [facility] HEALTH CARE [id number] SP [id number] [facility] HEALTH CARE O [id number] S [id number] MEDICAID [id number] SP [id number] [facility] FAMILY HLTH PLUS [id number] SP [id number] COMMUNITY PLAN MCDO [id number] SP [id number] [place]BS [place] PPO 302/307 [id number] SP [id number] SELF PAY UNAVAILABLE UNAVAILA BLE [facility] PHY [id number] SP [id number] [facility] P [id number] S [id number] EXCELLUS BCBS P [id number] S [id number] Problems, Conditions, and Diagnoses Code Display Name Description Problem Type Effective Dates Data Source(s) [id number] Pure hypercholesterolemia Pure hypercholesterolemia Pr oblem 01/06/2020 12:00:00 AM EST [facility]) Results ID Date Data Source [id number] 07/07/2020 06:20:00 AM EDT [facility] ([facility]) Name Value Range Interpretation Code Description Data Shelly rce(s) Supporting Document(s) Blood Urea Nitrogen 18 mg/dL 7-18 Normal (applies to non-nume ginger results) [facility] ([facility]) Glucose, Fasting 96 mg/dL 70-100 Normal (applies to non-numeric results) [facility] ([facility]) Creatinine For GFR 0.72 mg/dL 0.55-1.30 Normal (applies to non -numeric results) [facility] ([facility]) Glomerular Filtration Rate Laboratory test result Normal (applies to non- numeric results) [facility] ([facility]) <content>Units are mL/min/1.73 m2</content>
<content></content>
<content>Chronic Kidney Disease Staging per NKF:</content>
<content></content>
<content>Stage I & II GFR >=60 Normal to Mildly Decreased</content>
<content>Stage III GFR 30-59 Moderately Decreased</content>
<content>Stage IV GFR 15-29 Severely Decreased</content>
<content>Stage V GFR <15 Very Little GFR Left</content>
<content>ESRD GFR <15 on TIE IN HAND</content>
<content></content> Sodium Level 143 meq/L 136-145 Normal (applies to non-numeric res ults) [facility] ([facility]) Potassium Serum 4.0 meq/L 3.5-5.1 Normal (applies to non-numeric results) [facility] ([facility]) Chloride Level 109 meq/L 98-107 Above high normal [facility] ([facility]) Carbon Dioxide Level 29 meq/L 21-32 Normal (applies to non-num nathalia results) [facility] ([facility]) Anion Gap 5 meq/L 8-16 Below low normal [facility] ( [facility]) Calcium Level 8.9 mg/dL 8.8-10.2 Normal (applies to non-numeric re sults) [facility] ([facility]) Alt/SGPT 21 U/L 12-78 Normal (applies to non-numeric resul ts) [facility] ([facility]) Ast/Sgot 19 U/L 7-37 Normal (applies to non-numeric resul ts) [facility] ([facility]) Alkaline Phosphatase 98 U/L 45-117 Normal (applies to non-num nathalia results) [facility] ([facility]) Bilirubin,Total 0.4 mg/dL 0.2-1.0 Normal (applies to non-numeric results) [facility] ([facility]) Total Protein 6.6 GM/DL 6.4-8.2 Normal (applies to non-numeric re sults) [facility] ([facility]) Albumin 3.6 GM/DL 3.2-5.2 Normal (applies to non-numeric resul ts) [facility] ([facility]) Albumin/Globulin Ratio 1.2 1.2-2.2 Normal (applies to non-n umeric results) [facility] ([facility]) ID Date Data Source [id number] 07/07/2020 06:20:00 AM EDT [facility] ([facility]) Name Value Range Interpretation Code Description Data Shelly rce(s) Supporting Document(s) Gamma glutamyl transferase [Enzymatic activity/volume] in Se rum or Plasma 9 U/L 5-55 Normal (applies to non-numeric results) [facility] ([facility]) ID Date Data Source [id number] 07/07/2020 06:20:00 AM EDT [facility]) Name Value Range Interpretation Code Description Data Shelly rce(s) Supporting Document(s) Thyroid Stimulating Hormone Laboratory test result 0.358-3.740 Normal (applies to non-numeric results) [facility] ([facility]) Test not performed. Please resubmit [facility] new order and sample. Free T4 Laboratory test result 0.76-1.46 Normal (a pplies to non-numeric results) [facility] ([facility]) Test not performed. Please resubmit [facility] new order and sample. ID Date Data Source [id number] 06/09/2020 08:09:00 PM EDT [facility] ([facility]) Name Value Range Interpretation Code Description Data Shelly rce(s) Supporting Document(s) Glucose [Mass/volume] in Capillary blood by Glucometer 85 mg/dL 80-115 Normal (applies to non-numeric results) [facility] ([facility]) ID Date Data Source [id number] 06/09/2020 02:37:00 PM EDT [facility] ([facility]) Name Value Range Interpretation Code Description Data Shelly rce(s) Supporting Document(s) Reflex Urine Culture Laboratory test result Norm al (applies to non-numeric results) [facility] ([facility]) FULL REPORT IN LAB NOTES (eCW and [facility] ). SPECIMEN APPEARS CONTAMINATED ID Date Data Source [id number] 06/09/2020 02:37:00 PM EDT [facility] ([facility]) Name Value Range Interpretation Code Description Data Shelly rce(s) Supporting Document(s) Appearance, Urine RFX Laboratory test result Nor mal (applies to non-numeric results) [facility] ([facility]) Color, Urine RFX Laboratory test result Normal ( applies to non-numeric results) [facility] ([facility]) Specific [place] Ur Auto RFX 1.020 1.002-1.035 Nor mal (applies to non-numeric results) [facility] ([facility]) PH,Urine RFX 5.0 units 5.0-9.0 Normal (applies to non-numeric res ults) [facility] ([facility]) Protein, Urine Auto RFX Laboratory test result N ormal (applies to non-numeric results) [facility] ([facility]) Glucose, Urine (Ua) Auto RFX Laboratory test result Normal (applies to non- numeric results) [facility] ([facility]) Ketone, Urine Auto RFX Laboratory test result No rmal (applies to non-numeric results) [facility] ([facility]) Urobilinogen, Urine Auto RFX 0.2 mg/dL 0.0-2.0 Nor mal (applies to non-numeric results) [facility] ([facility]) Bilirubin, Urine Auto RFX Laboratory test result Normal (applies to non- numeric results) [facility] ([facility]) Nitrite, Urine Auto RFX Laboratory test result N ormal (applies to non-numeric results) [facility] ([facility]) Leukocyte Esterase Ur Auto RFX Laboratory test result Abov e high normal [facility] ([facility]) WBC, Urine Auto RFX 1 /HPF 0-3 Normal (applies to non-nume ginger results) [facility] ([facility]) Blood, Urine Blood RFX Laboratory test result No rmal (applies to non-numeric results) [facility] ([facility]) Bacteria, Urine Auto RFX Laboratory test result Normal (applies to non-numeric results) [facility] ([facility]) RBC, Urine Auto RFX 0 /HPF 0-3 Normal (applies to non-nume ginger results) [facility] ([facility]) Mucus, Urine RFX Laboratory test result Normal ( applies to non-numeric results) [facility] ([facility]) Squam Epithelial Cell Ur Aurfx 1 /HPF 0-6 N ormal (applies to non-numeric results) [facility] ([facility]) Hyaline Cast, Urine Auto RFX 0 /LPF 0-1 Normal (appl ies to non-numeric results) [facility] ([facility]) ID Date Data Source [id number] 06/09/2020 12:21:00 PM EDT [facility] ([facility]) Name Value Range Interpretation Code Description Data Shelly rce(s) Supporting Document(s) Laboratory test finding (navigational concept) 41.0 % 3 8.0-51.0 Normal (applies to non-numeric results) [facility] ([facility]) Laboratory test finding (navigational concept) 69 mg/dL 70-105 Below low normal [facility] ([facility]) Laboratory test finding (navigational concept) 142 meq/L 1 36-145 Normal (applies to non-numeric results) [facility] ([facility]) Laboratory test finding (navigational concept) 4.6 meq/L 3 .5-5.1 Normal (applies to non-numeric results) [facility] ([facility]) Laboratory test finding (navigational concept) 4.5 mg/dL 4 .5-5.3 Normal (applies to non-numeric results) [facility] ([facility]) Laboratory test finding (navigational concept) 107 meq/L 9 8-109 Normal (applies to non-numeric results) [facility] ([facility]) Laboratory test finding (navigational concept) 27.0 MM/L 2 3.0-27.0 Normal (applies to non-numeric results) [facility] ([facility]) Laboratory test finding (navigational concept) 17 mg/dL 8 -26 Normal (applies to non-numeric results) [facility] ([facility]) Laboratory test finding (navigational concept) 0.6 mg/dL 0 .6-1.3 Normal (applies to non-numeric results) [facility] ([facility]) ID Date Data Source [id number] 06/09/2020 12:20:00 PM EDT [facility] ([facility]) Name Value Range Interpretation Code Description Data Shelly rce(s) Supporting Document(s) T Uptake 32 % 30-39 Normal (applies to non-numeric resul ts) [facility] ([facility]) Free Thyroxine Index 3.3 % 1.3-4.8 Normal (applies to non-num nathalia results) [facility] ([facility]) Thyroxine (T4) 10.4 ug/dL 4.5-12.0 Normal (applies to non-numeric r esults) [facility] ([facility]) Thyroid Stimulating Hormone 0.089 uIU/ML 0.358-3.740 Below low normal [facility] ([facility]) ID Date Data Source [id number] 06/09/2020 12:20:00 PM EDT [facility] ([facility]) Name Value Range Interpretation Code Description Data Shelly rce(s) Supporting Document(s) Magnesium [Mass/volume] in Serum or Plasma 2.2 mg/dL 1.8-2 .4 Normal (applies to non-numeric results) [facility] ([facility]) Thyrotropin [Units/volume] in Serum or Plasma 0.089 uIU/ML 0. 358-3.740 Below low normal [facility] ([facility]) ID Date Data Source [id number] 06/09/2020 12:20:00 PM EDT [facility] ([facility]) Name Value Range Interpretation Code Description Data Shelly rce(s) Supporting Document(s) Alt/SGPT 31 U/L 12-78 Normal (applies to non-numeric resul ts) [facility] ([facility]) Ast/Sgot 58 U/L 7-37 Above high normal [facility] ([facility]) Testing was performed on a hemolysed spe cimen. Suggest recollection of specimen for more accurate test results. Alkaline Phosphatase 85 U/L 45-117 Normal (applies to non-num nathalia results) [facility] ([facility]) Bilirubin,Total 0.4 mg/dL 0.2-1.0 Normal (applies to non-numeric results) [facility] ([facility]) Total Protein 6.7 GM/DL 6.4-8.2 Normal (applies to non-numeric re sults) [facility] ([facility]) Bilirubin,Direct Laboratory test result 0.0-0.2 Normal ( applies to non-numeric results) [facility] ([facility]) Albumin/Globulin Ratio 0.9 1.2-2.2 Below low normal [facility] ([facility]) Albumin 3.2 GM/DL 3.2-5.2 Normal (applies to non-numeric resul ts) [facility] ([facility]) ID Date Data Source [id number] 06/09/2020 12:20:00 PM EDT [facility] ([facility]) Name Value Range Interpretation Code Description Data Shelly rce(s) Supporting Document(s) White Blood Count 5.4 10 4.0-10.0 Normal (applies to non-numeri c results) [facility] ([facility]) Red Blood Count 4.64 10 4.00-5.40 Normal (applies to non-numeric results) [facility] ([facility]) Mean Corpuscular Volume 89.7 fl 80.0-96.0 Normal ( applies to non-numeric results) [facility] ([facility]) Hematocrit 41.6 % 36.0-47.0 Normal (applies to non-numeric resul ts) [facility] ([facility]) Hemoglobin 13.2 g/dL 12.0-15.5 Normal (applies to non-numeric resul ts) [facility] ([facility]) Mean Corpuscular Hemoglobin 28.4 pg 27.0-33.0 Norm al (applies to non-numeric results) [facility] ([facility]) Mean Corpuscular HGB Conc 31.7 g/dL 32.0-36.5 Below low normal [facility] ([facility]) Red Cell Distribution Width 13.2 % 11.5-14.5 Norm al (applies to non-numeric results) [facility] ([facility]) Platelet Count, Automated 240 10 150-450 Normal (applies to non-numeric results) [facility] ([facility]) Neutrophils % 47.0 % 36.0-66.0 Normal (applies to non-numeric re sults) [facility] ([facility]) Lymph % 37.2 % 24.0-44.0 Normal (applies to non-numeric resul ts) [facility] ([facility]) Eos % 3.0 % 0.0-3.0 Normal (applies to non-numeric resul ts) [facility] ([facility]) Barron % 11.5 % 0.0-5.0 Above high normal [facility] ([facility]) Baso % 1.1 % 0.0-1.0 Above high normal [facility] ([facility]) Immature Granulocyte % 0.2 % 0-3.0 Normal (applies to non-n umeric results) [facility] ([facility]) Nucleated Red Blood Cell % 0.0 % 0-0 Normal (applies to n on-numeric results) [facility] ([facility]) Lymph # 2.0 10 1.5-5.0 Normal (applies to non-numeric resul ts) [facility] ([facility]) Neutrophils # 2.5 10 1.5-8.5 Normal (applies to non-numeric re sults) [facility] ([facility]) Eos # 0.2 10 0.0-0.5 Normal (applies to non-numeric resul ts) [facility] ([facility]) Barron # 0.6 10 0.0-0.8 Normal (applies to non-numeric resul ts) [facility] ([facility]) Baso # 0.1 10 0.0-0.2 Normal (applies to non-numeric resul ts) [facility] ([facility]) ID Date Data Source [id number] 04/12/2020 06:23:00 AM EDT [facility] ([facility]) Name Value Range Interpretation Code Description Data Shelly rce(s) Supporting Document(s) Vitamin B12 Level 386 pg/mL Normal (applies to non-numeri c results) [facility] ([facility]) VITAMIN B12 NORMAL RANGE NORMAL 247 - 911 PG/ML INDETERMINATE 211 - 246 PG/ML DEFICIENT LESS THAN 211 PG/ML Folate 9.7 ng/mL Normal (applies to non-numeric resul ts) [facility] ([facility]) FOLATE NORMAL RANGE NORMAL GREATER THAN 5.4 NG/ML INDETERMINATE 3.4-5.4 NG/ML DEFICIENT LESS THAN 3.4 NG/ML ID Date Data Source [id number] 04/12/2020 06:23:00 AM EDT [facility] ([facility]) Name Value Range Interpretation Code Description Data Shelly rce(s) Supporting Document(s) Hemoglobin 14.0 g/dL 12.0-15.5 Normal (applies to non-numeric resul ts) [facility] ([facility]) Red Blood Count 5.01 10 4.00-5.40 Normal (applies to non-numeric results) [facility] ([facility]) White Blood Count 6.1 10 4.0-10.0 Normal (applies to non-numeri c results) [facility] ([facility]) Mean Corpuscular Volume 89.0 fl 80.0-96.0 Normal ( applies to non-numeric results) [facility] ([facility]) Hematocrit 44.6 % 36.0-47.0 Normal (applies to non-numeric resul ts) [facility] ([facility]) Mean Corpuscular Hemoglobin 27.9 pg 27.0-33.0 Norm al (applies to non-numeric results) [facility] ([facility]) Platelet Count, Automated 217 10 150-450 Normal (applies to non-numeric results) [facility] ([facility]) Mean Corpuscular HGB Conc 31.4 g/dL 32.0-36.5 Below low normal [facility] ([facility]) Neutrophils % 49.2 % 36.0-66.0 Normal (applies to non-numeric re sults) [facility] ([facility]) Red Cell Distribution Width 12.5 % 11.5-14.5 Norm al (applies to non-numeric results) [facility] ([facility]) Lymph % 37.8 % 24.0-44.0 Normal (applies to non-numeric resul ts) [facility] ([facility]) Barron % 9.2 % 0.0-5.0 Above high normal [facility] ([facility]) Eos % 2.8 % 0.0-3.0 Normal (applies to non-numeric resul ts) [facility] ([facility]) Immature Granulocyte % 0.2 % 0-3.0 Normal (applies to non-n umeric results) [facility] ([facility]) Baso % 0.8 % 0.0-1.0 Normal (applies to non-numeric resul ts) [facility] ([facility]) Nucleated Red Blood Cell % 0.0 % 0-0 Normal (applies to n on-numeric results) [facility] ([facility]) Barron # 0.6 10 0.0-0.8 Normal (applies to non-numeric resul ts) [facility] ([facility]) Neutrophils # 3.0 10 1.5-8.5 Normal (applies to non-numeric re sults) [facility] ([facility]) Lymph # 2.3 10 1.5-5.0 Normal (applies to non-numeric resul ts) [facility] ([facility]) Eos # 0.2 10 0.0-0.5 Normal (applies to non-numeric resul ts) [facility] ([facility]) Baso # 0.1 10 0.0-0.2 Normal (applies to non-numeric resul ts) [facility] ([facility]) ID Date Data Source [id number] 04/12/2020 06:23:00 AM EDT [facility] ([facility]) Name Value Range Interpretation Code Description Data Shelly rce(s) Supporting Document(s) Thyroid Stimulating Hormone 0.421 uIU/ML 0.358-3.740 Norm al (applies to non- numeric results) [facility] ([facility]) Free T4 1.40 ng/dL 0.76-1.46 Normal (applies to non-numeric resul ts) [facility] ([facility]) ID Date Data Source [id number] 04/12/2020 06:23:00 AM EDT [facility] ([facility]) Name Value Range Interpretation Code Description Data Shelly rce(s) Supporting Document(s) Calcidiol [Mass/volume] in Serum or Plasma 53.6 ng/mL 30.0- 100.0 Normal (applies to non-numeric results) [facility] ([facility]) ID Date Data Source [id number] 04/12/2020 06:23:00 AM EDT [facility] ([facility]) Name Value Range Interpretation Code Description Data Shelly rce(s) Supporting Document(s) Glucose, Fasting 85 mg/dL 70-100 Normal (applies to non-numeric results) [facility] ([facility]) Blood Urea Nitrogen 20 mg/dL 7-18 Above high normal [facility] ([facility]) Creatinine For GFR 0.77 mg/dL 0.55-1.30 Normal (applies to non -numeric results) [facility] ([facility]) Glomerular Filtration Rate Laboratory test result Normal (applies to non- numeric results) [facility] ([facility]) <content>Units are mL/min/1.73 m2</content>
<content></content>
<content>Chronic Kidney Disease Staging per NKF:</content>
<content></content>
<content>Stage I & II GFR >=60 Normal to Mildly Decreased</content>
<content>Stage III GFR 30- 59 Moderately Decreased</content>
<content>Stage IV GFR 15-29 Severely Decreased</content>
<content>Stage V GFR <15 Very Little GFR Left</content>
<content>ESRD GFR <15 on TIE IN HAND</content>
<content></content> Sodium Level 143 meq/L 136-145 Normal (applies to non-numeric res ults) [facility] ([facility]) Potassium Serum 4.1 meq/L 3.5-5.1 Normal (applies to non-numeric results) [facility] ([facility]) Chloride Level 107 meq/L 98-107 Normal (applies to non-numeric r esults) [facility] ([facility]) Carbon Dioxide Level 30 meq/L 21-32 Normal (applies to non-num nathalia results) [facility] ([facility]) Calcium Level 8.6 mg/dL 8.8-10.2 Below low normal [facility] ([facility]) Ast/Sgot 16 U/L 7-37 Normal (applies to non-numeric resul ts) [facility] ([facility]) Anion Gap 6 meq/L 8-16 Below low normal [facility] ( [facility]) Alt/SGPT 26 U/L 12-78 Normal (applies to non-numeric resul ts) [facility] ([facility]) Alkaline Phosphatase 92 U/L 45-117 Normal (applies to non-num nathalia results) [facility] ([facility]) Bilirubin,Total 0.6 mg/dL 0.2-1.0 Normal (applies to non-numeric results) [facility] ([facility]) Total Protein 6.6 GM/DL 6.4-8.2 Normal (applies to non-numeric re sults) [facility] ([facility]) Albumin/Globulin Ratio 1.1 1.2-2.2 Below low normal [facility]) Albumin 3.5 GM/DL 3.2-5.2 Normal (applies to non-numeric resul ts) [facility] ([facility]) ID Date Data Source [id number] 04/12/2020 06:23:00 AM EDT [facility] ([facility]) Name Value Range Interpretation Code Description Data Shelly rce(s) Supporting Document(s) Cholesterol Level 236 mg/dL Above high normal [facility] ([facility]) Triglycerides Level 148 mg/dL Normal (applies to non-nume ginger results) [facility] ([facility]) LDL Cholesterol 141 mg/dL Above high normal [facility] ([facility]) Non-HDL-C 171 mg/dL Normal (applies to non-numeric resul ts) [facility] ([facility]) HDL Cholesterol 65 mg/dL Normal (applies to non-numeric results) [facility] ([facility]) Cholesterol Risk Ratio 3.630 Normal (applies to non-n umeric results) [facility] ([facility]) ID Date Data Source [id number] 04/06/2020 08:42:00 AM EDT [facility] ([facility]) Name Value Range Interpretation Code Description Data Shelly rce(s) Supporting Document(s) Coronavirus 2019 Nasopharygeal Laboratory test result [facility] ([facility]) Testing was performed using the kana(R) SARS-CoV-2 test. This test was developed and its performance characteristics determined by [facility]. This test has not been FDA cleared [...] detected) result in this assay. Performed at: [address] [id number] Visual Education Teacher: Yoanna Park MD, Phone: [phone] Not Detected ID Date Data Source [id number] 04/06/2020 08:42:00 AM EDT [facility] ([facility]) Name Value Range Interpretation Code Description Data Shelly rce(s) Supporting Document(s) Laboratory test finding (navigational concept) Laboratory test r esult Normal (applies to non-numeric results) [facility] ([facility]) RP PANEL RESULT NEGATIVE b y MULTIPLEXED NUCLEIC ACID PCR ID Date Data Source [id number] 04/06/2020 08:42:00 AM EDT [facility] Name Value Range Interpretation Code Description Data Shelly rce(s) Supporting Document(s) SARS CORONAVIRUS 2 RNA [facility] This lab was ordered by [facility] and reported by [facility]. ID Date Data Source [id number] 04/06/2020 08:37:00 AM EDT [facility] ([facility]) Name Value Range Interpretation Code Description Data Shelly rce(s) Supporting Document(s) Gats Culture (Neg Strep SCR) Laboratory test result Normal (applies to non- numeric results) [facility] ([facility]) FULL REPORT IN LAB NOTES ([facility] and [facility] ). NEGATIVE FOR STREP PYOGENES (GROUP A) ID Date Data Source [id number] 01/05/2020 07:52:00 AM EST [facility] ([facility]) Name Value Range Interpretation Code Description Data Shelly rce(s) Supporting Document(s) Triiodothyronine (T3) Free [Mass/volume] in Serum or Plasma 2.2 pg/mL 2.2-4.0 Normal (applies to non-numeric results) [facility] ([facility]) ID Date Data Source [id number] 01/05/2020 07:52:00 AM EST [facility] ([facility]) Name Value Range Interpretation Code Description Data Shelly rce(s) Supporting Document(s) Free T4 1.11 ng/dL 0.76-1.46 Normal (applies to non-numeric resul ts) [facility] ([facility]) Thyroid Stimulating Hormone 5.590 uIU/ML 0.358-3.740 Above high [place] l [facility] ([facility]) ID Date Data Source [id number] 01/05/2020 07:52:00 AM EST [facility] ([facility]) Name Value Range Interpretation Code Description Data Shelly rce(s) Supporting Document(s) Iron [Mass/volume] in Serum or Plasma 45 ug/dL 50-170 Below low normal [facility] ([facility]) ID Date Data Source [id number] 01/05/2020 07:52:00 AM EST [facility] ([facility]) Name Value Range Interpretation Code Description Data Shelly rce(s) Supporting Document(s) HDL Cholesterol 66 mg/dL Normal (applies to non-numeric results) [facility] ([facility]) Cholesterol Level 229 mg/dL Above high normal [facility] ([facility]) Triglycerides Level 69 mg/dL Normal (applies to non-nume ginger results) [facility] ([facility]) Cholesterol Risk Ratio 3.469 Normal (applies to non-n umeric results) [facility] ([facility]) LDL Cholesterol 149 mg/dL Above high normal [facility] ([facility]) Non-HDL-C 163 mg/dL Normal (applies to non-numeric resul ts) [facility] ([facility]) ID Date Data Source [id number] 01/05/2020 07:52:00 AM EST [facility] ([facility]) Name Value Range Interpretation Code Description Data Shelly rce(s) Supporting Document(s) Blood Urea Nitrogen 14 mg/dL 7-18 Normal (applies to non-nume ginger results) [facility] ([facility]) Glucose, Fasting 84 mg/dL 70-100 Normal (applies to non-numeric results) [facility] ([facility]) Creatinine For GFR 0.74 mg/dL 0.55-1.30 Normal (applies to non -numeric results) [facility] ([facility]) Sodium Level 141 meq/L 136-145 Normal (applies to non-numeric res ults) [facility] ([facility]) Potassium Serum 4.1 meq/L 3.5-5.1 Normal (applies to non-numeric results) [facility] ([facility]) Glomerular Filtration Rate Laboratory test result Normal (applies to non- numeric results) [facility] ([facility]) <content>Units are mL/min/1.73 m2</content>
<content></content>
<content>Chronic Kidney Disease Staging per NKF:</content>
<content></content>
<content>Stage I & II GFR >=60 Normal to Mildly Decreased</content>
<content>Stage III GFR 30- 59 Moderately Decreased</content>
<content>Stage IV GFR 15-29 Severely Decreased</content>
<content>Stage V GFR <15 Very Little GFR Left</content>
<content>ESRD GFR <15 on TIE IN HAND</content>
<content></content> Carbon Dioxide Level 27 meq/L 21-32 Normal (applies to non-num nathalia results) [facility] ([facility]) Anion Gap 8 meq/L 8-16 Normal (applies to non-numeric resul ts) [facility] ([facility]) Chloride Level 106 meq/L 98-107 Normal (applies to non-numeric r esults) [facility] ([facility]) Ast/Sgot 15 U/L 7-37 Normal (applies to non-numeric resul ts) [facility] ([facility]) Calcium Level 8.9 mg/dL 8.5-10.1 Normal (applies to non-numeric re sults) [facility] ([facility]) Alt/SGPT 23 U/L 12-78 Normal (applies to non-numeric resul ts) [facility] ([facility]) Total Protein 6.5 GM/DL 6.4-8.2 Normal (applies to non-numeric re sults) [facility] ([facility]) Alkaline Phosphatase 93 U/L 45-117 Normal (applies to non-num nathalia results) [facility] ([facility]) Bilirubin,Total 0.5 mg/dL 0.2-1.0 Normal (applies to non-numeric results) [facility] ([facility]) Albumin 3.8 GM/DL 3.2-5.2 Normal (applies to non-numeric resul ts) [facility] ([facility]) Albumin/Globulin Ratio 1.41 1.00-1.93 Normal (applies to non-numeric results) [facility] ([facility]) ID Date Data Source [id number] 01/05/2020 07:52:00 AM EST [facility] ([facility]) Name Value Range Interpretation Code Description Data Shelly rce(s) Supporting Document(s) White Blood Count 6.3 10 4.0-10.0 Normal (applies to non-numeri c results) [facility] ([facility]) Red Blood Count 4.60 10 4.00-5.40 Normal (applies to non-numeric results) [facility] ([facility]) Hematocrit 41.3 % 36.0-47.0 Normal (applies to non-numeric resul ts) [facility] ([facility]) Mean Corpuscular Volume 89.8 fl 80.0-96.0 Normal ( applies to non-numeric results) [facility] ([facility]) Hemoglobin 13.0 g/dL 12.0-15.5 Normal (applies to non-numeric resul ts) [facility] ([facility]) Mean Corpuscular Hemoglobin 28.3 pg 27.0-33.0 Norm al (applies to non-numeric results) [facility] ([facility]) Red Cell Distribution Width 13.0 % 11.5-14.5 Norm al (applies to non-numeric results) [facility] ([facility]) Mean Corpuscular HGB Conc 31.5 g/dL 32.0-36.5 Below low normal [facility] ([facility]) Platelet Count, Automated 229 10 150-450 Normal (applies to non-numeric results) [facility] ([facility]) Neutrophils % 53.8 % 36.0-66.0 Normal (applies to non-numeric re sults) [facility] ([facility]) Lymph % 33.5 % 24.0-44.0 Normal (applies to non-numeric resul ts) [facility] ([facility]) Barron % 9.0 % 0.0-5.0 Above high normal [facility] ([facility]) Baso % 0.9 % 0.0-1.0 Normal (applies to non-numeric resul ts) [facility] ([facility]) Eos % 2.5 % 0.0-3.0 Normal (applies to non-numeric resul ts) [facility] ([facility]) Immature Granulocyte % 0.3 % 0-3.0 Normal (applies to non-n umeric results) [facility] ([facility]) Lymph # 2.1 10 1.5-5.0 Normal (applies to non-numeric resul ts) [facility] ([facility]) Nucleated Red Blood Cell % 0.0 % 0-0 Normal (applies to n on-numeric results) [facility] ([facility]) Neutrophils # 3.4 10 1.5-8.5 Normal (applies to non-numeric re sults) [facility] ([facility]) Baso # 0.1 10 0.0-0.2 Normal (applies to non-numeric resul ts) [facility] ([facility]) Eos # 0.2 10 0.0-0.5 Normal (applies to non-numeric resul ts) [facility] ([facility]) Barron # 0.6 10 0.0-0.8 Normal (applies to non-numeric resul ts) [facility] ([facility]) Procedure Social History Code Duration Value Status Description Data Source(s ) Smoking 10/19/2020 12:00:00 AM EST Patient has never smoked co mpleted Patient has never smoked [facility] ([facility]) Vital Signs ID Date Data Source UNK Name Value Range Interpretation Code Description Data Source(s) Oxygen saturation in Arterial blood by Pulse oximetry 96 % 96 % [facility] ([facility]) Body temperature 97.8 [degF] 97.8 [degF] [facility] ([facility]) Respiratory rate 22 /min 22 /min [facility] ( [facility]) Heart rate 75 /min 75 /min [facility] ([facility]) Body mass index (BMI) [Ratio] 32.8 kg/m2 32.8 k g/m2 [facility] ([facility]) Body weight 188.00 [lb_av] 188.00 [lb_av] [facility] ([facility]) Body height 63.5 [in_i] 63.5 [in_i] [facility] ([facility]) 5'3.50" Diastolic blood pressure 88 mm[Hg] 88 mm[Hg] [facility] ([facility]) 134/70 recheck lg cuff Systolic blood pressure 144 mm[Hg] 144 mm[Hg] [facility] ([facility]) 134/70 recheck lg cuff Donald body weight 115 [lb_av] 115 [lb_av] [facility] ([facility]) Donald body weight 115 [lb_av] 115 [lb_av] [facility] ([facility]) Oxygen saturation in Arterial blood by Pulse oximetry 97 % 97 % [facility] ([facility]) Body temperature 96.2 [degF] 96.2 [degF] [facility] ([facility]) Respiratory rate 18 /min 18 /min [facility] ( [facility]) Heart rate 78 /min 78 /min [facility] ([facility]) Body mass index (BMI) [Ratio] 32.6 kg/m2 32.6 k g/m2 [facility] ([facility]) Body weight 187.00 [lb_av] 187.00 [lb_av] [facility] ([facility]) Body height 63.5 [in_i] 63.5 [in_i] [facility] ([facility]) 5'3.50" Diastolic blood pressure 68 mm[Hg] 68 mm[Hg] [facility] ([facility]) Systolic blood pressure 122 mm[Hg] 122 mm[Hg] [facility] ([facility]) Oxygen saturation in Arterial blood by Pulse oximetry 98 % 98 % [facility] ([facility]) Body temperature 98.1 [degF] 98.1 [degF] [facility] ([facility]) Respiratory rate 18 /min 18 /min [facility] ( [facility]) Heart rate 67 /min 67 /min [facility] ([facility]) Body mass index (BMI) [Ratio] 32.5 kg/m2 32.5 k g/m2 [facility] ([facility]) Body weight 186.38 [lb_av] 186.38 [lb_av] [facility] ([facility]) Body height 63.5 [in_i] 63.5 [in_i] [facility] ([facility]) 5'3.50" Diastolic blood pressure 78 mm[Hg] 78 mm[Hg] [facility] ([facility]) Systolic blood pressure 124 mm[Hg] 124 mm[Hg] [facility] ([facility]) Oxygen saturation in Arterial blood by Pulse oximetry 95 % 95 % [facility] ([facility]) Body temperature 97.1 [degF] 97.1 [degF] [facility] ([facility]) Respiratory rate 18 /min 18 /min [facility] ( [facility]) Heart rate 84 /min 84 /min [facility] ([facility]) Body mass index (BMI) [Ratio] 32.4 kg/m2 32.4 k g/m2 [facility] ([facility]) Body weight 186.12 [lb_av] 186.12 [lb_av] [facility] ([facility]) Body height 63.5 [in_i] 63.5 [in_i] [facility] ([facility]) 5'3.50" Diastolic blood pressure 76 mm[Hg] 76 mm[Hg] [facility] ([facility]) Systolic blood pressure 126 mm[Hg] 126 mm[Hg] [facility] ([facility]) Oxygen saturation in Arterial blood by Pulse oximetry 97 % 97 % [facility] Body temperature 98.4 [degF] 98.4 [degF] [facility] ([facility]) Respiratory rate 18 /min 18 /min [facility] ( [facility]) Heart rate 71 /min 71 /min [facility] ([facility]) Body mass index (BMI) [Ratio] 32.6 kg/m2 32.6 k g/m2 [facility] ([facility]) Body weight 187.00 [lb_av] 187.00 [lb_av] [facility] ([facility]) Body height 63.5 [in_i] 63.5 [in_i] [facility] ([facility]) 5'3.50" Diastolic blood pressure 78 mm[Hg] 78 mm[Hg] [facility] ([facility]) Systolic blood pressure 128 mm[Hg] 128 mm[Hg] [facility] ([facility])
--- NOTE | 2021-01-16 14:46 | REP ---
INDICATION: TRAUMA/INCREASED PAIN. 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 There is no prevertebral swelling. No hardware failure. Disc space at C2-3 is preserved. There are marginal osteophytes from C5-6 and C6-7 anteriorly and posteriorly at C6-7. Disc spaces narrowed at C6-7. Mild narrowing of the AP canal diameter from the previous C4-5 level to the mid aspect of C5 vertebral body just above the level of the screw threads. Screws do not extend into the canal there is not any evidence of a cervical fracture. Posterior elements including the spinous processes, lamina, pedicles, facets, transverse processes and transverse foramina were intact. Uncinate spurs and facet arthropathy contribute to foraminal encroachment at C6-7 bilaterally while the other foramina are adequate. The dens shows degenerative changes at its articulation with anterior margin of C1 arch. It also has normal relationship to the lateral masses on the coronal views. The upper thoracic vertebral levels and portions of visualized ribs are intact. The lung apices seen in limited fashion, unremarkable. Both the cervicothoracic and craniocervical junctions show normal alignment. IMPRESSION: 1. Status post C5 through C7 anterior spinal fusion with corpectomy with the alignment unchanged. There is no fracture visible. There is disc space narrowing at C6-7 with anterior osteophytes at that level and lesser osteophytes at C2-3 and C5-6. Posterior elements intact. Some mild central canal stenosis behind the C4-5 and upper aspect of C5 vertebral body as well as some foraminal encroachment bilaterally at C6-7 due to combined factors. 2. No prevertebral swelling. Dens intact craniocervical junction and cervicothoracic junction normal. <Electronically signed by Luke Singh > 01/16/21 [id number]
--- OUTSIDE RECORDS SUMMARY | 2021-01-16 15:30 | CCD ---
Author Author [facility] Organization [facility] Address Unknown Phone Unavailable Care Team Providers Care Crepe Maker Name Role Phone Franklyn Mcdonald Unavailable Unavailable [...] Unavailable Harry, Franklyn PA Unavailable Unavailable Harry, Rfanklyn PA Unavailable Unavailable Harry, Franklyn PA Unavailable [...] Unavailable VIRGINIA-ALVINO, LAKESHA DO Unavailable Unavailable VIRGINIA-ALVINO, LAKSEHA DO Unavailable Unavailable VIRGINIA-ALVINO, LAKESHA DO Unavailable [...] Unavailable VIRGINIA-ALVINO, LAKESHA DO Unavailable Unavailable VIRGINIA-ALVINO, LAKSEHA DO Unavailable Unavailable VIRGINIA-ALVINO, LAKESHA DO Unavailable [...] A Andrew PA Unavailable Unavailable O'jacinda, A Adnrew PA Unavailable Unavailable O'jacinda, A Andrew PA [...] is protected by Article 27-F of the [facility] Public Health law. If you continue you may have access to information: Regarding HIV / AIDS; Provided by facilities licensed or operated by the [facility] Office of Mental Health; or Provided by the [facility] Office for People With Developmental Disabilities. If such information is present, then the following [facility] mandated warning applies: This information has [...] law may result in a fine or mcc sentence or both. A general authorization for [...] [facility] Unknown Unknown Problem [facility] ([facility] ) Unknown Unknown Problem [facility] ([facility] ) Unknown Unknown Problem [facility] ([facility] ) Unknown Unknown Problem [facility] ([facility] ) Encounters Encounter Providers Location Date Indications Data Source(s ) Outpatient Attender: Franklyn TAN [facility] 10/19/2020 10:00:00 AM EST [facility] ([facility]) Outpatient Attender: Franklyn TAN [facility] 07/20/2020 11:00:00 AM EDT [facility] ([facility]) Outpatient Attender: LAKESHA DESAI [facility] 06/22/2020 03:00:00 PM EDT [facility] ([facility]) Outpatient Attender: LAKESHA DESAI [facility] 04/13/2020 10:20:00 AM EDT [facility] ([facility]) Outpatient Attender: Andrew TAN [facility] 01/06/2020 12:00:00 PM EST [facility] ([facility]) Medications Medication Brand Name Start Date Product Form Dose Route Admi nistrative Instructions Pharmacy Instructions Status Indications Reaction Description Data Source(s) Temazepam 15 MG Oral Capsule Temazepam 07/20/2020 12:00:00 AM EDT ORAL active [facility] ([facility]) 24 HR Oxybutynin chloride 5 MG Extended Release Oral T ablet Oxybutynin Chloride ER 07/20/2020 12:00:00 AM EDT ORAL active [facility] ([facility]) Meclizine Hydrochloride 25 MG Oral Tablet Meclizine HCL 06/22/2020 12:00:00 AM EDT ORAL completed [facility] ([facility]) Trazodone Hydrochloride 50 MG Oral Tablet Trazodone HCL 06/22/2020 12:00:00 AM EDT ORAL completed [facility] ([facility]) Azelastine HCL (Nasal) Azelastine HCL (Nasal) 06/22/2020 12:00:00 AM E DT active [facility] ([facility]) Hydroxyzine Hydrochloride 10 MG Oral Tablet Hydroxyzine HCL 02/09/2020 12:00:00 AM EDT ORAL completed [facility] ([facility]) Levothyroxine Sodium 0.125 MG Oral Tablet Levothyroxine Sodi um 01/06/2020 12:00:00 AM EST ORAL active M [facility] ([facility]) Cholecalciferol 79136 UNT Oral Tablet Vitamin D3 Ultra Poten cy 01/05/2020 12:00:00 AM EST ORAL active M [facility] ([facility]) Insurance Providers Payer name Policy type / Coverage type Policy ID Covered libertarian ID Covered libertarian's relationship to markham Policy [place] Plan Information PMA MANAGEMENT [facility] [id number] SP [id number] BCBS CLARE HMO [id number] SP [id number] BCBS CLARE HMO [id number] SP [id number] [place] P[place] 302/307 [id number] SP [id number] [place] [id number] Self [id number] EXCELLUS BCBS B [id number] S [id number] [place] PPO 302/307 [id number] SP [id number] SELF PAY ONLY UNAVAILABLE SP UNAV AILABLE MVP MCDO [id number] SP [id number] MVP HEALTH CARE O [id number] S [id number] MVP Health Plans Commercial [id number] Self [id number] MVP I [id number] Self [id number] GREAT DIVIDE INS CO [id number] SP [id number] MVP EXCHANGE U [id number] Self [id number] [facility] W/C BOARD [id number] SP [id number] US DEPT OF LABOR WC [id number] SP [id number] US DEPT OF LABOR WC UNAVAILABLE SP UNAVAILABLE GREAT DIVISION UNAVAILABLE [place] VAILABLE TOTAL ERIVORMENT [id number] SP [id number] MVP MEDICAID [id number] Julia [id number] MVP [id number] Julia [id number] TOTAL ERIVOMENT O [id number] S [id number] Total Erivorment Workers Compensation Self MVP HEALTH CARE HEA [id number] Excellus BCBS Medigap Part B Family Dependent MVP Medicaid Health Maintenance Organization (HMO) Self MEDICAID HEALTH MAINTENANCE ORGANIZATION HEA [id number] [facility] HEA [id number] [facility] I [id number] Self [id number] [facility] HE[facility] CARE [id number] SP [id number] [facility] HE[facility] CARE O [id number] S [id number] MEDICAID [id number] SP [id number] GHI FAMILY HLTH PLUS [id number] SP [id number] UNHC COMMUNITY PLAN MCDO [id number] SP [id number] [place]BS [place] PPO 302/307 [id number] SP [id number] SELF PAY UNAVAILABLE UNAVAILA BLE [facility] PHY [id number] SP [id number] [facility] P [id number] S [id number] EXCELLUS BCBS P [id number] S [id number] Problems, Conditions, and Diagnoses Code Display Name Description Problem Type Effective Dates Data Source(s) [id number] Pure hypercholesterolemia Pure hypercholesterolemia Pr oblem 01/06/2020 12:00:00 AM EST [facility] ([facility]) Results ID Date Data Source [id number] 07/07/2020 06:20:00 AM EDT [facility] ([facility]) Name Value Range Interpretation Code Description Data Shelly rce(s) Supporting Document(s) Blood Urea Nitrogen 18 mg/dL 7-18 Normal (applies to non-nume ginger results) [facility] ([facility]) Glucose, Fasting 96 mg/dL 70-100 Normal (applies to non-numeric results) [facility] ([facility]) Creatinine For GFR 0.72 mg/dL 0.55-1.30 Normal (applies to non -numeric results) [facility] ([facility]) Glomerular Filtration Rate Laboratory test result Normal (applies to non- numeric results) [facility] ([facility]) <content>Units are mL/min/1.73 m2</content>
<content></content>
<content>Chronic Kidney Disease Staging per NKF:</content>
<content></content>
<content>Stage I & II GFR >=60 Normal to Mildly Decreased</content>
<content>Stage III GFR 30-59 Moderately Decreased</content>
<content>Stage IV GFR 15-29 Severely Decreased</content>
<content>Stage V GFR <15 Very Little GFR Left</content>
<content>ESRD GFR <15 on STRINGED INSTRUMENT ASSEMBLER</content>
<content></content> Sodium Level 143 meq/L 136-145 Normal (applies to non-numeric res ults) [facility] ([facility]) Potassium Serum 4.0 meq/L 3.5-5.1 Normal (applies to non-numeric results) [facility] ([facility]) Chloride Level 109 meq/L 98-107 Above high normal [facility]) Carbon Dioxide Level 29 meq/L 21-32 Normal (applies to non-num nathalia results) [facility] ([facility]) Anion Gap 5 meq/L 8-16 Below low normal [facility] ( [facility]) Calcium Level 8.9 mg/dL 8.8-10.2 Normal (applies to non-numeric re sults) [facility] ([facility]) Alt/SGPT 21 U/L 12-78 Normal (applies to non-numeric resul ts) [facility] ([facility]) Ast/Sgot 19 U/L 7-37 Normal (applies to non-numeric resul ts) [facility] ([facility]) Alkaline Phosphatase 98 U/L 45-117 Normal (applies to non-num nathalia results) [facility] ([facility]) Bilirubin,Total 0.4 mg/dL 0.2-1.0 Normal (applies to non-numeric results) [facility] ([facility]) Total Protein 6.6 GM/DL 6.4-8.2 Normal (applies to non-numeric re sults) [facility] ([facility]) Albumin 3.6 GM/DL 3.2-5.2 Normal (applies to non-numeric resul ts) [facility] ([facility]) Albumin/Globulin Ratio 1.2 1.2-2.2 Normal (applies to non-n umeric results) [facility] ([facility]) ID Date Data Source [id number] 07/07/2020 06:20:00 AM EDT [facility] ([facility]) Name Value Range Interpretation Code Description Data Shelly rce(s) Supporting Document(s) Gamma glutamyl transferase [Enzymatic activity/volume] in Se rum or Plasma 9 U/L 5-55 Normal (applies to non-numeric results) [facility] ([facility]) ID Date Data Source [id number] 07/07/2020 06:20:00 AM EDT [facility]) Name Value Range Interpretation Code Description Data Shelly rce(s) Supporting Document(s) Thyroid Stimulating Hormone Laboratory test result 0.358-3.740 Normal (applies to non-numeric results) [facility] ([facility]) Test not performed. Please resubmit [facility] new order and sample. Free T4 Laboratory test result 0.76-1.46 Normal (a pplies to non-numeric results) [facility] ([facility]) Test not performed. Please resubmit [facility] new order and sample. ID Date Data Source [id number] 06/09/2020 08:09:00 PM EDT [facility] ([facility]) Name Value Range Interpretation Code Description Data Shelly rce(s) Supporting Document(s) Glucose [Mass/volume] in Capillary blood by Glucometer 85 mg/dL 80-115 Normal (applies to non-numeric results) [facility] ([facility]) ID Date Data Source [id number] 06/09/2020 02:37:00 PM EDT [facility] ([facility]) Name Value Range Interpretation Code Description Data Shelly rce(s) Supporting Document(s) Reflex Urine Culture Laboratory test result Norm al (applies to non-numeric results) [facility] ([facility]) FULL REPORT IN LAB NOTES ([facility] and [facility] ). SPECIMEN APPEARS CONTAMINATED ID Date Data Source [id number] 06/09/2020 02:37:00 PM EDT [facility]) Name Value Range Interpretation Code Description Data Shelly rce(s) Supporting Document(s) Appearance, Urine RFX Laboratory test result Nor mal (applies to non-numeric results) [facility] ([facility]) Color, Urine RFX Laboratory test result Normal ( applies to non-numeric results) [facility] ([facility]) Specific [place] Ur Auto RFX 1.020 1.002-1.035 Nor mal (applies to non-numeric results) [facility] ([facility]) PH,Urine RFX 5.0 units 5.0-9.0 Normal (applies to non-numeric res ults) [facility] ([facility]) Protein, Urine Auto RFX Laboratory test result N ormal (applies to non-numeric results) [facility] ([facility]) Glucose, Urine (Ua) Auto RFX Laboratory test result Normal (applies to non- numeric results) [facility] ([facility]) Ketone, Urine Auto RFX Laboratory test result No rmal (applies to non-numeric results) [facility] ([facility]) Urobilinogen, Urine Auto RFX 0.2 mg/dL 0.0-2.0 Nor mal (applies to non-numeric results) [facility] ([facility]) Bilirubin, Urine Auto RFX Laboratory test result Normal (applies to non- numeric results) [facility] ([facility]) Nitrite, Urine Auto RFX Laboratory test result N ormal (applies to non-numeric results) [facility] ([facility]) Leukocyte Esterase Ur Auto RFX Laboratory test result Abov e high normal [facility] ([facility]) WBC, Urine Auto RFX 1 /HPF 0-3 Normal (applies to non-nume ginger results) [facility] ([facility]) Blood, Urine Blood RFX Laboratory test result No rmal (applies to non-numeric results) [facility] ([facility]) Bacteria, Urine Auto RFX Laboratory test result Normal (applies to non-numeric results) [facility] ([facility]) RBC, Urine Auto RFX 0 /HPF 0-3 Normal (applies to non-nume ginger results) [facility] ([facility]) Mucus, Urine RFX Laboratory test result Normal ( applies to non-numeric results) [facility] ([facility]) Squam Epithelial Cell Ur Aurfx 1 /HPF 0-6 N ormal (applies to non-numeric results) [facility] ([facility]) Hyaline Cast, Urine Auto RFX 0 /LPF 0-1 Normal (appl ies to non-numeric results) [facility] ([facility]) ID Date Data Source [id number] 06/09/2020 12:21:00 PM EDT [facility] ([facility]) Name Value Range Interpretation Code Description Data Shelly rce(s) Supporting Document(s) Laboratory test finding (navigational concept) 41.0 % 3 8.0-51.0 Normal (applies to non-numeric results) [facility] ([facility]) Laboratory test finding (navigational concept) 69 mg/dL 70-105 Below low normal [facility] ([facility]) Laboratory test finding (navigational concept) 142 meq/L 1 36-145 Normal (applies to non-numeric results) [facility] ([facility]) Laboratory test finding (navigational concept) 4.6 meq/L 3 .5-5.1 Normal (applies to non-numeric results) [facility] ([facility]) Laboratory test finding (navigational concept) 4.5 mg/dL 4 .5-5.3 Normal (applies to non-numeric results) [facility] ([facility]) Laboratory test finding (navigational concept) 107 meq/L 9 8-109 Normal (applies to non-numeric results) [facility] ([facility]) Laboratory test finding (navigational concept) 27.0 MM/L 2 3.0-27.0 Normal (applies to non-numeric results) [facility] ([facility]) Laboratory test finding (navigational concept) 17 mg/dL 8 -26 Normal (applies to non-numeric results) [facility] ([facility]) Laboratory test finding (navigational concept) 0.6 mg/dL 0 .6-1.3 Normal (applies to non-numeric results) [facility] ([facility]) ID Date Data Source [id number] 06/09/2020 12:20:00 PM EDT [facility] ([facility]) Name Value Range Interpretation Code Description Data Shelly rce(s) Supporting Document(s) T Uptake 32 % 30-39 Normal (applies to non-numeric resul ts) [facility] ([facility]) Free Thyroxine Index 3.3 % 1.3-4.8 Normal (applies to non-num nathalia results) [facility] ([facility]) Thyroxine (T4) 10.4 ug/dL 4.5-12.0 Normal (applies to non-numeric r esults) [facility] ([facility]) Thyroid Stimulating Hormone 0.089 uIU/ML 0.358-3.740 Below low normal [facility] ([facility]) ID Date Data Source [id number] 06/09/2020 12:20:00 PM EDT [facility] ([facility]) Name Value Range Interpretation Code Description Data Shelly rce(s) Supporting Document(s) Magnesium [Mass/volume] in Serum or Plasma 2.2 mg/dL 1.8-2 .4 Normal (applies to non-numeric results) [facility] ([facility]) Thyrotropin [Units/volume] in Serum or Plasma 0.089 uIU/ML 0. 358-3.740 Below low normal [facility] ([facility]) ID Date Data Source [id number] 06/09/2020 12:20:00 PM EDT [facility] ([facility]) Name Value Range Interpretation Code Description Data Shelly rce(s) Supporting Document(s) Alt/SGPT 31 U/L 12-78 Normal (applies to non-numeric resul ts) [facility] ([facility]) Ast/Sgot 58 U/L 7-37 Above high normal [facility] ([facility]) Testing was performed on a hemolysed spe cimen. Suggest recollection of specimen for more accurate test results. Alkaline Phosphatase 85 U/L 45-117 Normal (applies to non-num nathalia results) [facility] ([facility]) Bilirubin,Total 0.4 mg/dL 0.2-1.0 Normal (applies to non-numeric results) [facility] ([facility]) Total Protein 6.7 GM/DL 6.4-8.2 Normal (applies to non-numeric re sults) [facility] ([facility]) Bilirubin,Direct Laboratory test result 0.0-0.2 Normal ( applies to non-numeric results) [facility] ([facility]) Albumin/Globulin Ratio 0.9 1.2-2.2 Below low normal [facility] ([facility]) Albumin 3.2 GM/DL 3.2-5.2 Normal (applies to non-numeric resul ts) [facility] ([facility]) ID Date Data Source [id number] 06/09/2020 12:20:00 PM EDT [facility] ([facility]) Name Value Range Interpretation Code Description Data Shelly rce(s) Supporting Document(s) White Blood Count 5.4 10 4.0-10.0 Normal (applies to non-numeri c results) [facility] ([facility]) Red Blood Count 4.64 10 4.00-5.40 Normal (applies to non-numeric results) [facility] ([facility]) Mean Corpuscular Volume 89.7 fl 80.0-96.0 Normal ( applies to non-numeric results) [facility] ([facility]) Hematocrit 41.6 % 36.0-47.0 Normal (applies to non-numeric resul ts) [facility] ([facility]) Hemoglobin 13.2 g/dL 12.0-15.5 Normal (applies to non-numeric resul ts) [facility] ([facility]) Mean Corpuscular Hemoglobin 28.4 pg 27.0-33.0 Norm al (applies to non-numeric results) [facility] ([facility]) Mean Corpuscular HGB Conc 31.7 g/dL 32.0-36.5 Below low normal [facility] ([facility]) Red Cell Distribution Width 13.2 % 11.5-14.5 Norm al (applies to non-numeric results) [facility] ([facility]) Platelet Count, Automated 240 10 150-450 Normal (applies to non-numeric results) [facility] ([facility]) Neutrophils % 47.0 % 36.0-66.0 Normal (applies to non-numeric re sults) [facility] ([facility]) Lymph % 37.2 % 24.0-44.0 Normal (applies to non-numeric resul ts) [facility] ([facility]) Eos % 3.0 % 0.0-3.0 Normal (applies to non-numeric resul ts) [facility] ([facility]) Traverse % 11.5 % 0.0-5.0 Above high normal [facility] ([facility]) Baso % 1.1 % 0.0-1.0 Above high normal [facility] ([facility]) Immature Granulocyte % 0.2 % 0-3.0 Normal (applies to non-n umeric results) [facility] ([facility]) Nucleated Red Blood Cell % 0.0 % 0-0 Normal (applies to n on-numeric results) [facility] ([facility]) Lymph # 2.0 10 1.5-5.0 Normal (applies to non-numeric resul ts) [facility] ([facility]) Neutrophils # 2.5 10 1.5-8.5 Normal (applies to non-numeric re sults) [facility] ([facility]) Eos # 0.2 10 0.0-0.5 Normal (applies to non-numeric resul ts) [facility] ([facility]) Traverse # 0.6 10 0.0-0.8 Normal (applies to non-numeric resul ts) [facility] ([facility]) Baso # 0.1 10 0.0-0.2 Normal (applies to non-numeric resul ts) [facility] ([facility]) ID Date Data Source [id number] 04/12/2020 06:23:00 AM EDT [facility] ([facility]) Name Value Range Interpretation Code Description Data Shelly rce(s) Supporting Document(s) Vitamin B12 Level 386 pg/mL Normal (applies to non-numeri c results) [facility] ([facility]) VITAMIN B12 NORMAL RANGE NORMAL 247 - 911 PG/ML INDETERMINATE 211 - 246 PG/ML DEFICIENT LESS THAN 211 PG/ML Folate 9.7 ng/mL Normal (applies to non-numeric resul ts) [facility] ([facility]) FOLATE NORMAL RANGE NORMAL GREATER THAN 5.4 NG/ML INDETERMINATE 3.4-5.4 NG/ML DEFICIENT LESS THAN 3.4 NG/ML ID Date Data Source [id number] 04/12/2020 06:23:00 AM EDT [facility] ([facility]) Name Value Range Interpretation Code Description Data Shelly rce(s) Supporting Document(s) Hemoglobin 14.0 g/dL 12.0-15.5 Normal (applies to non-numeric resul ts) [facility] ([facility]) Red Blood Count 5.01 10 4.00-5.40 Normal (applies to non-numeric results) [facility] ([facility]) White Blood Count 6.1 10 4.0-10.0 Normal (applies to non-numeri c results) [facility] ([facility]) Mean Corpuscular Volume 89.0 fl 80.0-96.0 Normal ( applies to non-numeric results) [facility] ([facility]) Hematocrit 44.6 % 36.0-47.0 Normal (applies to non-numeric resul ts) [facility] ([facility]) Mean Corpuscular Hemoglobin 27.9 pg 27.0-33.0 Norm al (applies to non-numeric results) [facility] ([facility]) Platelet Count, Automated 217 10 150-450 Normal (applies to non-numeric results) [facility] ([facility]) Mean Corpuscular HGB Conc 31.4 g/dL 32.0-36.5 Below low normal [facility] ([facility]) Neutrophils % 49.2 % 36.0-66.0 Normal (applies to non-numeric re sults) [facility] ([facility]) Red Cell Distribution Width 12.5 % 11.5-14.5 Norm al (applies to non-numeric results) [facility] ([facility]) Lymph % 37.8 % 24.0-44.0 Normal (applies to non-numeric resul ts) [facility] ([facility]) Traverse % 9.2 % 0.0-5.0 Above high normal [facility] ([facility]) Eos % 2.8 % 0.0-3.0 Normal (applies to non-numeric resul ts) [facility] ([facility]) Immature Granulocyte % 0.2 % 0-3.0 Normal (applies to non-n umeric results) [facility] ([facility]) Baso % 0.8 % 0.0-1.0 Normal (applies to non-numeric resul ts) [facility] ([facility]) Nucleated Red Blood Cell % 0.0 % 0-0 Normal (applies to n on-numeric results) [facility] ([facility]) Traverse # 0.6 10 0.0-0.8 Normal (applies to non-numeric resul ts) [facility] ([facility]) Neutrophils # 3.0 10 1.5-8.5 Normal (applies to non-numeric re sults) [facility] ([facility]) Lymph # 2.3 10 1.5-5.0 Normal (applies to non-numeric resul ts) [facility] ([facility]) Eos # 0.2 10 0.0-0.5 Normal (applies to non-numeric resul ts) [facility] ([facility]) Baso # 0.1 10 0.0-0.2 Normal (applies to non-numeric resul ts) [facility] ([facility]) ID Date Data Source [id number] 04/12/2020 06:23:00 AM EDT [facility] ([facility]) Name Value Range Interpretation Code Description Data Shelly rce(s) Supporting Document(s) Thyroid Stimulating Hormone 0.421 uIU/ML 0.358-3.740 Norm al (applies to non- numeric results) [facility] ([facility]) Free T4 1.40 ng/dL 0.76-1.46 Normal (applies to non-numeric resul ts) [facility] ([facility]) ID Date Data Source [id number] 04/12/2020 06:23:00 AM EDT [facility] ([facility]) Name Value Range Interpretation Code Description Data Shelly rce(s) Supporting Document(s) Calcidiol [Mass/volume] in Serum or Plasma 53.6 ng/mL 30.0- 100.0 Normal (applies to non-numeric results) [facility] ([facility]) ID Date Data Source [id number] 04/12/2020 06:23:00 AM EDT [facility] ([facility]) Name Value Range Interpretation Code Description Data Shelly rce(s) Supporting Document(s) Glucose, Fasting 85 mg/dL 70-100 Normal (applies to non-numeric results) [facility] ([facility]) Blood Urea Nitrogen 20 mg/dL 7-18 Above high normal [facility] ([facility]) Creatinine For GFR 0.77 mg/dL 0.55-1.30 Normal (applies to non -numeric results) [facility] ([facility]) Glomerular Filtration Rate Laboratory test result Normal (applies to non- numeric results) [facility] ([facility]) <content>Units are mL/min/1.73 m2</content>
<content></content>
<content>Chronic Kidney Disease Staging per NKF:</content>
<content></content>
<content>Stage I & II GFR >=60 Normal to Mildly Decreased</content>
<content>Stage III GFR 30- 59 Moderately Decreased</content>
<content>Stage IV GFR 15-29 Severely Decreased</content>
<content>Stage V GFR <15 Very Little GFR Left</content>
<content>ESRD GFR <15 on STRINGED INSTRUMENT ASSEMBLER</content>
<content></content> Sodium Level 143 meq/L 136-145 Normal (applies to non-numeric res ults) [facility] ([facility]) Potassium Serum 4.1 meq/L 3.5-5.1 Normal (applies to non-numeric results) [facility] ([facility]) Chloride Level 107 meq/L 98-107 Normal (applies to non-numeric r esults) [facility] ([facility]) Carbon Dioxide Level 30 meq/L 21-32 Normal (applies to non-num nathalia results) [facility] ([facility]) Calcium Level 8.6 mg/dL 8.8-10.2 Below low normal [facility] ([facility]) Ast/Sgot 16 U/L 7-37 Normal (applies to non-numeric resul ts) [facility] ([facility]) Anion Gap 6 meq/L 8-16 Below low normal [facility] ( [facility]) Alt/SGPT 26 U/L 12-78 Normal (applies to non-numeric resul ts) [facility] ([facility]) Alkaline Phosphatase 92 U/L 45-117 Normal (applies to non-num nathalia results) [facility] ([facility]) Bilirubin,Total 0.6 mg/dL 0.2-1.0 Normal (applies to non-numeric results) [facility] ([facility]) Total Protein 6.6 GM/DL 6.4-8.2 Normal (applies to non-numeric re sults) [facility] ([facility]) Albumin/Globulin Ratio 1.1 1.2-2.2 Below low normal [facility] ([facility]) Albumin 3.5 GM/DL 3.2-5.2 Normal (applies to non-numeric resul ts) [facility] ([facility]) ID Date Data Source [id number] 04/12/2020 06:23:00 AM EDT [facility] ([facility]) Name Value Range Interpretation Code Description Data Shelly rce(s) Supporting Document(s) Cholesterol Level 236 mg/dL Above high normal [facility] ([facility]) Triglycerides Level 148 mg/dL Normal (applies to non-nume ginger results) [facility] ([facility]) LDL Cholesterol 141 mg/dL Above high normal [facility] ([facility]) Non-HDL-C 171 mg/dL Normal (applies to non-numeric resul ts) [facility] ([facility]) HDL Cholesterol 65 mg/dL Normal (applies to non-numeric results) [facility] ([facility]) Cholesterol Risk Ratio 3.630 Normal (applies to non-n umeric results) [facility] ([facility]) ID Date Data Source [id number] 04/06/2020 08:42:00 AM EDT [facility] ([facility]) Name Value Range Interpretation Code Description Data Shelly rce(s) Supporting Document(s) Coronavirus 2019 Nasopharygeal Laboratory test result [facility] ([facility]) Testing was performed using the kana(R) SARS-CoV-2 test. This test was developed and its performance characteristics determined by [employer]. This test has not been FDA cleared [...] detected) result in this assay. Performed at: [address] [id number] Mental Health Program Manager: Yoanna Park MD, Phone: [phone] Not Detected ID Date Data Source [id number] 04/06/2020 08:42:00 AM EDT [facility] ([facility]) Name Value Range Interpretation Code Description Data Shelly rce(s) Supporting Document(s) Laboratory test finding (navigational concept) Laboratory test r esult Normal (applies to non-numeric results) [facility] ([facility]) RP PANEL RESULT NEGATIVE b y MULTIPLEXED NUCLEIC ACID PCR ID Date Data Source [id number] 04/06/2020 08:42:00 AM EDT [facility] Name Value Range Interpretation Code Description Data Shelly rce(s) Supporting Document(s) SARS CORONAVIRUS 2 RNA [facility] This lab was ordered by [facility] and reported by [facility]. ID Date Data Source [id number] 04/06/2020 08:37:00 AM EDT [facility] ([facility]) Name Value Range Interpretation Code Description Data Shelly rce(s) Supporting Document(s) Gats Culture (Neg Strep SCR) Laboratory test result Normal (applies to non- numeric results) [facility] ([facility]) FULL REPORT IN LAB NOTES ([facility] and [facility] ). NEGATIVE FOR STREP PYOGENES (GROUP A) ID Date Data Source [id number] 01/05/2020 07:52:00 AM EST [facility] ([facility]) Name Value Range Interpretation Code Description Data Shelly rce(s) Supporting Document(s) Triiodothyronine (T3) Free [Mass/volume] in Serum or Plasma 2.2 pg/mL 2.2-4.0 Normal (applies to non-numeric results) [facility] ([facility]) ID Date Data Source [id number] 01/05/2020 07:52:00 AM EST [facility] ([facility]) Name Value Range Interpretation Code Description Data Shelly rce(s) Supporting Document(s) Free T4 1.11 ng/dL 0.76-1.46 Normal (applies to non-numeric resul ts) [facility] ([facility]) Thyroid Stimulating Hormone 5.590 uIU/ML 0.358-3.740 Above high [place] l [facility] ([facility]) ID Date Data Source [id number] 01/05/2020 07:52:00 AM EST [facility] ([facility]) Name Value Range Interpretation Code Description Data Shelly rce(s) Supporting Document(s) Iron [Mass/volume] in Serum or Plasma 45 ug/dL 50-170 Below low normal [facility] ([facility]) ID Date Data Source [id number] 01/05/2020 07:52:00 AM EST [facility] ([facility]) Name Value Range Interpretation Code Description Data Shelly rce(s) Supporting Document(s) HDL Cholesterol 66 mg/dL Normal (applies to non-numeric results) [facility] ([facility]) Cholesterol Level 229 mg/dL Above high normal [facility] ([facility]) Triglycerides Level 69 mg/dL Normal (applies to non-nume ginger results) [facility] ([facility]) Cholesterol Risk Ratio 3.469 Normal (applies to non-n umeric results) [facility] ([facility]) LDL Cholesterol 149 mg/dL Above high normal [facility] ([facility]) Non-HDL-C 163 mg/dL Normal (applies to non-numeric resul ts) [facility] ([facility]) ID Date Data Source [id number] 01/05/2020 07:52:00 AM EST [facility] ([facility]) Name Value Range Interpretation Code Description Data Shelly rce(s) Supporting Document(s) Blood Urea Nitrogen 14 mg/dL 7-18 Normal (applies to non-nume ginger results) [facility] ([facility]) Glucose, Fasting 84 mg/dL 70-100 Normal (applies to non-numeric results) [facility] ([facility]) Creatinine For GFR 0.74 mg/dL 0.55-1.30 Normal (applies to non -numeric results) [facility] ([facility]) Sodium Level 141 meq/L 136-145 Normal (applies to non-numeric res ults) [facility] ([facility]) Potassium Serum 4.1 meq/L 3.5-5.1 Normal (applies to non-numeric results) [facility] ([facility]) Glomerular Filtration Rate Laboratory test result Normal (applies to non- numeric results) [facility] ([facility]) <content>Units are mL/min/1.73 m2</content>
<content></content>
<content>Chronic Kidney Disease Staging per NKF:</content>
<content></content>
<content>Stage I & II GFR >=60 Normal to Mildly Decreased</content>
<content>Stage III GFR 30- 59 Moderately Decreased</content>
<content>Stage IV GFR 15-29 Severely Decreased</content>
<content>Stage V GFR <15 Very Little GFR Left</content>
<content>ESRD GFR <15 on STRINGED INSTRUMENT ASSEMBLER</content>
<content></content> Carbon Dioxide Level 27 meq/L 21-32 Normal (applies to non-num nathalia results) [facility] ([facility]) Anion Gap 8 meq/L 8-16 Normal (applies to non-numeric resul ts) [facility] ([facility]) Chloride Level 106 meq/L 98-107 Normal (applies to non-numeric r esults) [facility] ([facility]) Ast/Sgot 15 U/L 7-37 Normal (applies to non-numeric resul ts) [facility] ([facility]) Calcium Level 8.9 mg/dL 8.5-10.1 Normal (applies to non-numeric re sults) [facility] ([facility]) Alt/SGPT 23 U/L 12-78 Normal (applies to non-numeric resul ts) [facility] ([facility]) Total Protein 6.5 GM/DL 6.4-8.2 Normal (applies to non-numeric re sults) [facility] ([facility]) Alkaline Phosphatase 93 U/L 45-117 Normal (applies to non-num nathalia results) [facility] ([facility]) Bilirubin,Total 0.5 mg/dL 0.2-1.0 Normal (applies to non-numeric results) [facility] ([facility]) Albumin 3.8 GM/DL 3.2-5.2 Normal (applies to non-numeric resul ts) [facility] ([facility]) Albumin/Globulin Ratio 1.41 1.00-1.93 Normal (applies to non-numeric results) [facility] ([facility]) ID Date Data Source [id number] 01/05/2020 07:52:00 AM EST [facility] ([facility]) Name Value Range Interpretation Code Description Data Shelly rce(s) Supporting Document(s) White Blood Count 6.3 10 4.0-10.0 Normal (applies to non-numeri c results) [facility] ([facility]) Red Blood Count 4.60 10 4.00-5.40 Normal (applies to non-numeric results) [facility] ([facility]) Hematocrit 41.3 % 36.0-47.0 Normal (applies to non-numeric resul ts) [facility] ([facility]) Mean Corpuscular Volume 89.8 fl 80.0-96.0 Normal ( applies to non-numeric results) [facility] ([facility]) Hemoglobin 13.0 g/dL 12.0-15.5 Normal (applies to non-numeric resul ts) [facility] ([facility]) Mean Corpuscular Hemoglobin 28.3 pg 27.0-33.0 Norm al (applies to non-numeric results) [facility] ([facility]) Red Cell Distribution Width 13.0 % 11.5-14.5 Norm al (applies to non-numeric results) [facility] ([facility]) Mean Corpuscular HGB Conc 31.5 g/dL 32.0-36.5 Below low normal [facility] ([facility]) Platelet Count, Automated 229 10 150-450 Normal (applies to non-numeric results) [facility] ([facility]) Neutrophils % 53.8 % 36.0-66.0 Normal (applies to non-numeric re sults) [facility] ([facility]) Lymph % 33.5 % 24.0-44.0 Normal (applies to non-numeric resul ts) [facility] ([facility]) [place] % 9.0 % 0.0-5.0 Above high normal [facility] ([facility]) Baso % 0.9 % 0.0-1.0 Normal (applies to non-numeric resul ts) [facility] ([facility]) Eos % 2.5 % 0.0-3.0 Normal (applies to non-numeric resul ts) [facility] ([facility]) Immature Granulocyte % 0.3 % 0-3.0 Normal (applies to non-n umeric results) [facility] ([facility]) Lymph # 2.1 10 1.5-5.0 Normal (applies to non-numeric resul ts) [facility] ([facility]) Nucleated Red Blood Cell % 0.0 % 0-0 Normal (applies to n on-numeric results) [facility] ([facility]) Neutrophils # 3.4 10 1.5-8.5 Normal (applies to non-numeric re sults) [facility] ([facility]) Baso # 0.1 10 0.0-0.2 Normal (applies to non-numeric resul ts) [facility] ([facility]) Eos # 0.2 10 0.0-0.5 Normal (applies to non-numeric resul ts) [facility] ([facility]) [place] # 0.6 10 0.0-0.8 Normal (applies to non-numeric resul ts) [facility] ([facility]) Procedure Social History Code Duration Value Status Description Data Source(s ) Smoking 10/19/2020 12:00:00 AM EST Patient has never smoked co mpleted Patient has never smoked [facility] ([facility]) Vital Signs ID Date Data Source UNK Name Value Range Interpretation Code Description Data Source(s) Oxygen saturation in Arterial blood by Pulse oximetry 96 % 96 % [facility] ([facility]) Body temperature 97.8 [degF] 97.8 [degF] [facility] ([facility]) Respiratory rate 22 /min 22 /min [facility] ( [facility]) Heart rate 75 /min 75 /min [facility] ([facility]) Body mass index (BMI) [Ratio] 32.8 kg/m2 32.8 k g/m2 [facility] ([facility]) Body weight 188.00 [lb_av] 188.00 [lb_av] [facility] ([facility]) Body height 63.5 [in_i] 63.5 [in_i] [facility] ([facility]) 5'3.50" Diastolic blood pressure 88 mm[Hg] 88 mm[Hg] [facility] ([facility]) 134/70 recheck lg cuff Systolic blood pressure 144 mm[Hg] 144 mm[Hg] [facility] ([facility]) 134/70 recheck lg cuff [place] body weight 115 [lb_av] 115 [lb_av] [facility] ([facility]) [place] body weight 115 [lb_av] 115 [lb_av] [facility] ([facility]) Oxygen saturation in Arterial blood by Pulse oximetry 97 % 97 % [facility] ([facility]) Body temperature 96.2 [degF] 96.2 [degF] [facility] ([facility]) Respiratory rate 18 /min 18 /min [facility] ( [facility]) Heart rate 78 /min 78 /min [facility] ([facility]) Body mass index (BMI) [Ratio] 32.6 kg/m2 32.6 k g/m2 [facility] ([facility]) Body weight 187.00 [lb_av] 187.00 [lb_av] [facility] ([facility]) Body height 63.5 [in_i] 63.5 [in_i] [facility] ([facility]) 5'3.50" Diastolic blood pressure 68 mm[Hg] 68 mm[Hg] [facility] ([facility]) Systolic blood pressure 122 mm[Hg] 122 mm[Hg] [facility] ([facility]) Oxygen saturation in Arterial blood by Pulse oximetry 98 % 98 % [facility] ([facility]) Body temperature 98.1 [degF] 98.1 [degF] [facility] ([facility]) Respiratory rate 18 /min 18 /min [facility] ( [facility]) Heart rate 67 /min 67 /min [facility] ([facility]) Body mass index (BMI) [Ratio] 32.5 kg/m2 32.5 k g/m2 [facility] ([facility]) Body weight 186.38 [lb_av] 186.38 [lb_av] [facility] ([facility]) Body height 63.5 [in_i] 63.5 [in_i] [facility] ([facility]) 5'3.50" Diastolic blood pressure 78 mm[Hg] 78 mm[Hg] [facility] ([facility]) Systolic blood pressure 124 mm[Hg] 124 mm[Hg] [facility] ([facility]) Oxygen saturation in Arterial blood by Pulse oximetry 95 % 95 % [facility] ([facility]) Body temperature 97.1 [degF] 97.1 [degF] [facility] ([facility]) Respiratory rate 18 /min 18 /min [facility] ( [facility]) Heart rate 84 /min 84 /min [facility] ([facility]) Body mass index (BMI) [Ratio] 32.4 kg/m2 32.4 k g/m2 [facility] ([facility]) Body weight 186.12 [lb_av] 186.12 [lb_av] [facility] ([facility]) Body height 63.5 [in_i] 63.5 [in_i] [facility] ([facility]) 5'3.50" Diastolic blood pressure 76 mm[Hg] 76 mm[Hg] [facility] ([facility]) Systolic blood pressure 126 mm[Hg] 126 mm[Hg] [facility] ([facility]) Oxygen saturation in Arterial blood by Pulse oximetry 97 % 97 % [facility] Body temperature 98.4 [degF] 98.4 [degF] [facility]) Respiratory rate 18 /min 18 /min [facility] ( [facility]) Heart rate 71 /min 71 /min [facility] ([facility]) Body mass index (BMI) [Ratio] 32.6 kg/m2 32.6 k g/m2 [facility] ([facility]) Body weight 187.00 [lb_av] 187.00 [lb_av] [facility] ([facility]) Body height 63.5 [in_i] 63.5 [in_i] [facility] ([facility]) 5'3.50" Diastolic blood pressure 78 mm[Hg] 78 mm[Hg] [facility] ([facility]) Systolic blood pressure 128 mm[Hg] 128 mm[Hg] [facility] ([facility])
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
[2021-01-16 18:24] VITALS: BP 156/90
[2021-01-16] MEDS ORDERED: ACETAMINOPHEN 500 MG TAB PO ONE (18:30)
== END 2021-01-16 18:28 | disposition home or self-care (01) ==
LOC: M ED 13:27
DX: S00.03XD Contusion of scalp, subsequent encounter (principal); S16.1XXA Strain of muscle, fascia and tendon at neck level, initial encounter; Y04.2XXD Assault by strike against or bumped into by another person, subsequent encounter; Y92.230 Patient room in hospital as the place of occurrence of the external cause; Y93.9 Activity, unspecified; Y99.0 Civilian activity done for income or pay; Z98.1 Arthrodesis status; M48.02 Spinal stenosis, cervical region; M47.812 Spondylosis without myelopathy or radiculopathy, cervical region; M50.30 Other cervical disc degeneration, unspecified cervical region; M13.80 Other specified arthritis, unspecified site; Z98.84 Bariatric surgery status; Z88.1 Allergy status to other antibiotic agents; Z88.2 Allergy status to sulfonamides; Z88.6 Allergy status to analgesic agent; Z79.899 Other long term (current) drug therapy

== ENCOUNTER → 2021-05-02 | Outpatient (CLI) | payer BC ==
[2021-05-02 08:25] LABS: BASO % 0.7 % (0.0-1.0); EOS # 0.2 10^3/uL (0.0-0.5); EOS % 3.4 % (0.0-3.0); HEMATOCRIT 45.7 % (36.0-47.0); HEMOGLOBIN 14.5 g/dl (12.0-15.5); LYMPH # 1.7 10^3/uL (1.5-5.0); LYMPH % 31.7 % (24.0-44.0); MEAN CORPUSCULAR HEMOGLOBIN 28.5 pg (27.0-33.0); MEAN CORPUSCULAR HGB CONC 31.7 g/dl (32.0-36.5); MONO # 0.5 10^3/uL (0.0-0.8); PLATELET COUNT, AUTOMATED 267 10^3/uL (150-450); RED BLOOD COUNT 5.08 10^6/uL (4.00-5.40); WHITE BLOOD COUNT 5.4 10^3/uL (4.0-10.0)
[2021-05-02 09:05] LABS: ALBUMIN 3.7 GM/DL (3.2-5.2); ALT/SGPT 22 U/L (12-78); BILIRUBIN,TOTAL 0.4 MG/DL (0.2-1.0); BLOOD UREA NITROGEN 15 MG/DL (7-18); CARBON DIOXIDE LEVEL 28 MEQ/L (21-32); CHLORIDE LEVEL 107 MEQ/L (98-107); CHOLESTEROL LEVEL 223 MG/DL (<200); CHOLESTEROL RISK RATIO 3.596 (<5); CREATININE FOR GFR 0.61 MG/DL (0.55-1.30); FREE T4 1.21 NG/DL (0.76-1.46); GLOMERULAR FILTRATION RATE > 60.0 (>45); GLUCOSE, FASTING 91 MG/DL (70-100); HDL CHOLESTEROL 62 MG/DL (>40); IRON (FE) 68 UG/DL (50-170); LDL CHOLESTEROL 133 MG/DL (<100); NON-HDL-C 161 MG/DL; PERCENT SATURATION 20.1 % (13.2-45.0); POTASSIUM SERUM 4.6 MEQ/L (3.5-5.1); SODIUM LEVEL 140 MEQ/L (136-145); THYROID STIMULATING HORMONE 0.041 uIU/ML (0.358-3.740); TOTAL IRON BINDING CAPACITY 339 UG/DL (250-450); TOTAL PROTEIN 6.7 GM/DL (6.4-8.2); TRIGLYCERIDES LEVEL 139 MG/DL (<150)
[2021-05-02 09:08] LABS: TOTAL 25(OH) VITAMIN D 50.8 NG/ML (30.0-100.0); VITAMIN B12 LEVEL 412 PG/ML
[2021-05-02 09:09] LABS: FOLATE 11.7 NG/ML
== END ==
LOC: M LAB 07:41
PROVIDERS: ATTEND Physician Assistant
DX: Z00.00 Encounter for general adult medical examination without abnormal findings (principal)

== ENCOUNTER → 2021-05-08 | Outpatient (CLI) | payer OTHER ==
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
== END ==
LOC: M PAIN 13:00
PROVIDERS: ATTEND Nurse Practitioner Family
DX: M54.12 Radiculopathy, cervical region (principal); Z86.14 Personal history of Methicillin resistant Staphylococcus aureus infection; Z86.59 Personal history of other mental and behavioral disorders; Z98.84 Bariatric surgery status; Z88.2 Allergy status to sulfonamides; Z88.4 Allergy status to anesthetic agent; Z88.5 Allergy status to narcotic agent; Z79.899 Other long term (current) drug therapy

== ENCOUNTER → 2021-06-07 | Outpatient (CLI) | payer OTHER ==
[~2021-06-07] MED LIST changes: +ERGO500029 PO; -VITA50005 PO
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
== END ==
LOC: M PAIN 10:15
PROVIDERS: ATTEND Nurse Practitioner Family
DX: M54.12 Radiculopathy, cervical region (principal); Z86.14 Personal history of Methicillin resistant Staphylococcus aureus infection; Z86.59 Personal history of other mental and behavioral disorders; Z98.84 Bariatric surgery status; Z88.2 Allergy status to sulfonamides; Z88.4 Allergy status to anesthetic agent; Z88.5 Allergy status to narcotic agent; Z79.899 Other long term (current) drug therapy

== ENCOUNTER → 2021-08-01 | Outpatient (REF) | payer OTHER | LOC: M LAB REF 17:53 | PROVIDERS: ATTEND Physician Assistant | DX: Z01.818 Encounter for other preprocedural examination (principal) ==

== ENCOUNTER → 2021-08-01 | Outpatient (CLI) | payer OTHER ==
[2021-08-01 15:23] LABS: APPEARANCE, URINE CLOUDY (CLEAR); BACTERIA, URINE AUTO 1+ (NEGATIVE); BILIRUBIN, URINE AUTO NEGATIVE (NEGATIVE); BLOOD, URINE BLOOD NEGATIVE (NEGATIVE); COLOR, URINE AMBER (YELLOW); GLUCOSE, URINE (UA) AUTO NEGATIVE (NEGATIVE); KETONE, URINE AUTO TRACE mg/dL (NEGATIVE); LEUKOCYTE ESTERASE, URINE AUTO 3+ (NEGATIVE); MUCUS, URINE LARGE (NEGATIVE); NITRITE, URINE AUTO POSITIVE (NEGATIVE); PROTEIN, URINE AUTO 1+ mg/dL (NEGATIVE); RBC, URINE AUTO 13 /HPF (0-3); SQUAMOUS EPITHELIAL CELL UR AU 8 /HPF (0-6); UROBILINOGEN, URINE AUTO 0.2 mg/dL (0.0-2.0); WBC, URINE AUTO TNTC /HPF (0-3)
[2021-08-01 15:24] LABS: BASO # 0.1 10^3/uL (0.0-0.2); BASO % 0.7 % (0.0-1.0); EOS # 0.2 10^3/uL (0.0-0.5); EOS % 2.1 % (0.0-3.0); HEMATOCRIT 46.3 % (36.0-47.0); HEMOGLOBIN 14.9 g/dl (12.0-15.5); LYMPH # 2.9 10^3/uL (1.5-5.0); MEAN CORPUSCULAR HEMOGLOBIN 28.2 pg (27.0-33.0); MEAN CORPUSCULAR HGB CONC 32.2 g/dl (32.0-36.5); MEAN CORPUSCULAR VOLUME 87.5 fl (80.0-96.0); MONO # 0.7 10^3/uL (0.0-0.8); MONO % 8.6 % (2.0-8.0); NEUTROPHILS # 4.6 10^3/uL (1.5-8.5); NEUTROPHILS % 54.2 % (36.0-66.0); PLATELET COUNT, AUTOMATED 286 10^3/uL (150-450); RED BLOOD COUNT 5.29 10^6/uL (4.00-5.40); WHITE BLOOD COUNT 8.5 10^3/uL (4.0-10.0)
[2021-08-01 15:36] LABS: INR 0.92; PROTHROMBIN TIME 12.7 SECONDS (12.7-14.5)
[2021-08-01 15:51] LABS: BLOOD UREA NITROGEN 16 MG/DL (7-18); CALCIUM LEVEL 9.6 MG/DL (8.8-10.2); CARBON DIOXIDE LEVEL 25 MEQ/L (21-32); CHLORIDE LEVEL 107 MEQ/L (98-107); CREATININE FOR GFR 0.83 MG/DL (0.55-1.30); GLOMERULAR FILTRATION RATE > 60.0 (>45); GLUCOSE, FASTING 78 MG/DL (70-100); POTASSIUM SERUM 4.7 MEQ/L (3.5-5.1); SODIUM LEVEL 139 MEQ/L (136-145)
== END ==
LOC: M LAB 14:33
PROVIDERS: ATTEND Physician Assistant
DX: Z01.818 Encounter for other preprocedural examination (principal)

== ENCOUNTER 2021-09-22 07:31 | Emergency (ER) | payer BC ==
[~2021-09-22] VITALS: Ht 160 cm; Wt 87.9 kg
[2021-09-22 08:25] LABS: BASO # 0.1 10^3/uL (0.0-0.2); BASO % 0.9 % (0.0-1.0); EOS # 0.1 10^3/uL (0.0-0.5); EOS % 1.9 % (0.0-3.0); HEMATOCRIT 45.1 % (36.0-47.0); HEMOGLOBIN 14.2 g/dl (12.0-15.5); LYMPH # 1.5 10^3/uL (1.5-5.0); LYMPH % 26.3 % (24.0-44.0); MEAN CORPUSCULAR HEMOGLOBIN 28.2 pg (27.0-33.0); MEAN CORPUSCULAR HGB CONC 31.5 g/dl (32.0-36.5); MEAN CORPUSCULAR VOLUME 89.7 fl (80.0-96.0); MONO # 0.8 10^3/uL (0.0-0.8); MONO % 14.2 % (2.0-8.0); NEUTROPHILS # 3.3 10^3/uL (1.5-8.5); NEUTROPHILS % 56.5 % (36.0-66.0); PLATELET COUNT, AUTOMATED 271 10^3/uL (150-450); RED BLOOD COUNT 5.03 10^6/uL (4.00-5.40); WHITE BLOOD COUNT 5.8 10^3/uL (4.0-10.0)
[2021-09-22 08:42] LABS: BLOOD UREA NITROGEN 18 MG/DL (7-18); CALCIUM LEVEL 9.2 MG/DL (8.8-10.2); CARBON DIOXIDE LEVEL 27 MEQ/L (21-32); CHLORIDE LEVEL 107 MEQ/L (98-107); CREATININE FOR GFR 0.72 MG/DL (0.55-1.30); GLOMERULAR FILTRATION RATE > 60.0 (>45); GLUCOSE, FASTING 113 MG/DL (70-100); SODIUM LEVEL 142 MEQ/L (136-145)
[2021-09-22 11:07] VITALS: BP 139/63
== END 2021-09-22 11:41 | disposition home or self-care (01) ==
LOC: M ED 07:31
DX: U07.1 COVID-19 (principal); D50.9 Iron deficiency anemia, unspecified; Z98.84 Bariatric surgery status; Z88.2 Allergy status to sulfonamides; Z88.1 Allergy status to other antibiotic agents; Z88.8 Allergy status to other drugs, medicaments and biological substances; Z79.899 Other long term (current) drug therapy

== ENCOUNTER → 2022-01-08 | Outpatient (CLI) | payer BC, OTHER ==
[~2022-01-08] MED LIST changes: -CITA40TA4 PO; +CITA40TA7 PO
[2022-01-08 11:56] LABS: BASO # 0.1 10^3/uL (0.0-0.2); EOS # 0.2 10^3/uL (0.0-0.5); EOS % 3.1 % (0.0-3.0); HEMATOCRIT 44.2 % (36.0-47.0); HEMOGLOBIN 14.6 g/dl (12.0-15.5); LYMPH # 2.5 10^3/uL (1.5-5.0); LYMPH % 40.3 % (24.0-44.0); MEAN CORPUSCULAR HEMOGLOBIN 28.7 pg (27.0-33.0); MONO # 0.6 10^3/uL (0.0-0.8); MONO % 10.1 % (2.0-8.0); NEUTROPHILS # 2.8 10^3/uL (1.5-8.5); NEUTROPHILS % 45.3 % (36.0-66.0); PLATELET COUNT, AUTOMATED 264 10^3/uL (150-450); RED BLOOD COUNT 5.08 10^6/uL (4.00-5.40); WHITE BLOOD COUNT 6.2 10^3/uL (4.0-10.0)
[2022-01-08 12:51] LABS: ALBUMIN 3.7 GM/DL (3.2-5.2); ALT/SGPT 22 U/L (12-78); BILIRUBIN,TOTAL 0.4 MG/DL (0.2-1.0); BLOOD UREA NITROGEN 18 MG/DL (7-18); CALCIUM LEVEL 9.3 MG/DL (8.8-10.2); CARBON DIOXIDE LEVEL 26 MEQ/L (21-32); CHLORIDE LEVEL 107 MEQ/L (98-107); CREATININE FOR GFR 0.79 MG/DL (0.55-1.30); FERRITIN 21 NG/ML (8-252); FREE T4 1.28 NG/DL (0.76-1.46); GLOMERULAR FILTRATION RATE > 60.0 (>45); GLUCOSE, FASTING 98 MG/DL (70-100); IRON (FE) 65 UG/DL (50-170); POTASSIUM SERUM 4.3 MEQ/L (3.5-5.1); SODIUM LEVEL 141 MEQ/L (136-145); THYROID STIMULATING HORMONE 0.247 uIU/ML (0.358-3.740); TOTAL IRON BINDING CAPACITY 343 UG/DL (250-450); TOTAL PROTEIN 7.1 GM/DL (6.4-8.2)
[2022-01-08 13:16] LABS: FOLATE 16.8 NG/ML; VITAMIN B12 LEVEL 602 PG/ML
== END ==
LOC: M WUC 08:52
PROVIDERS: ATTEND Physician Assistant
DX: E61.1 Iron deficiency (principal); E03.9 Hypothyroidism, unspecified; Z98.84 Bariatric surgery status

== ENCOUNTER 2022-04-19 09:16 | Outpatient (RCR) | payer OTHER | END 2022-04-24 | LOC: M PT 09:16 | PROVIDERS: ATTEND Nurse Practitioner Family | DX: M75.42 Impingement syndrome of left shoulder (principal); M75.02 Adhesive capsulitis of left shoulder; S46.012D Strain of muscle(s) and tendon(s) of the rotator cuff of left shoulder, subsequent encounter ==

== ENCOUNTER 2022-05-21 10:46 | Outpatient (RCR) | payer OTHER | END 2022-05-24 | LOC: M PT 10:46 | PROVIDERS: ATTEND Nurse Practitioner Family | DX: M75.42 Impingement syndrome of left shoulder (principal); M75.02 Adhesive capsulitis of left shoulder; S46.012D Strain of muscle(s) and tendon(s) of the rotator cuff of left shoulder, subsequent encounter ==

== ENCOUNTER → 2022-10-23 | Outpatient (CLI) | payer BC, OTHER ==
[2022-10-23 07:54] LABS: BASO # 0.1 10^3/uL (0.0-0.2); BASO % 1.1 % (0.0-1.0); EOS # 0.1 10^3/uL (0.0-0.5); EOS % 2.2 % (0.0-3.0); HEMATOCRIT 41.9 % (36.0-47.0); HEMOGLOBIN 13.2 g/dl (12.0-15.5); LYMPH # 1.8 10^3/uL (1.5-5.0); LYMPH % 33.3 % (24.0-44.0); MEAN CORPUSCULAR HEMOGLOBIN 28.6 pg (27.0-33.0); MEAN CORPUSCULAR HGB CONC 31.5 g/dl (32.0-36.5); MEAN CORPUSCULAR VOLUME 90.7 fl (80.0-96.0); MONO # 0.4 10^3/uL (0.0-0.8); MONO % 6.5 % (2.0-8.0); NEUTROPHILS # 3.1 10^3/uL (1.5-8.5); NEUTROPHILS % 56.5 % (36.0-66.0); PLATELET COUNT, AUTOMATED 267 10^3/uL (150-450); RED BLOOD COUNT 4.62 10^6/uL (4.00-5.40); WHITE BLOOD COUNT 5.5 10^3/uL (4.0-10.0)
[2022-10-23 08:20] LABS: CHLORIDE LEVEL 105 MMOL/L (98-107); SODIUM LEVEL 141 MMOL/L (136-145)
[2022-10-23 08:21] LABS: ALBUMIN 3.7 G/DL (3.2-5.2)
[2022-10-23 08:26] LABS: ALKALINE PHOSPHATASE 85 U/L (46-116); BLOOD UREA NITROGEN 19 MG/DL (9-23); CALCIUM LEVEL 8.9 MG/DL (8.3-10.6); GLUCOSE, FASTING 101 MG/DL (74-106); TRIGLYCERIDES LEVEL 128 MG/DL (<150)
[2022-10-23 08:28] LABS: ALT/SGPT 18 U/L (7.0-40); AST/SGOT 20 U/L (<34); CHOLESTEROL LEVEL 208 MG/DL (<200); CHOLESTEROL RISK RATIO 3.74 (<5); CREATININE FOR GFR 0.62 MG/DL (0.55-1.30); FREE T4 1.07 NG/DL (0.89-1.76); GLOMERULAR FILTRATION RATE > 60.0 (>45); HDL CHOLESTEROL 55.6 MG/DL (>40); IRON (FE) 74 UG/DL (50-170); LDL CHOLESTEROL 126.8 MG/DL (<100); NON-HDL-C 152 MG/DL
[2022-10-23 08:29] LABS: BILIRUBIN,TOTAL 0.4 MG/DL (0.3-1.2); FERRITIN 19.7 NG/ML (7.3-270.7); PERCENT SATURATION 22.9 % (13.2-45.0); THYROID STIMULATING HORMONE 0.395 uIU/ML (0.55-4.78); TOTAL IRON BINDING CAPACITY 323 UG/DL (250-425)
[2022-10-23 08:30] LABS: TOTAL 25(OH) VITAMIN D 92.8 NG/ML (20.0-100.0); VITAMIN B12 LEVEL 488 PG/ML (211-911)
[2022-10-23 08:37] LABS: CARBON DIOXIDE LEVEL 28 MMOL/L (20-31)
== END ==
LOC: M LAB 07:00
PROVIDERS: ATTEND Family Medicine
DX: D51.9 Vitamin B12 deficiency anemia, unspecified (principal)

== ENCOUNTER → 2022-11-14 | Outpatient (CLI) | payer OTHER, BC | LOC: M RAD 07:26 | PROVIDERS: ATTEND Nurse Practitioner Family | DX: M79.89 Other specified soft tissue disorders (principal); Z98.890 Other specified postprocedural states ==

== ENCOUNTER 2023-01-21 09:54 | Outpatient (RCR) | payer OTHER, BC | END 2023-01-22 | LOC: M PT 09:54 | PROVIDERS: ATTEND Nurse Practitioner Family | DX: Z98.890 Other specified postprocedural states (principal); Z51.89 Encounter for other specified aftercare ==

== ENCOUNTER → 2023-02-22 | Outpatient (RCR) | payer OTHER, BC | LOC: M PT 01-25 12:34 | PROVIDERS: ATTEND Nurse Practitioner Family | DX: Z47.89 Encounter for other orthopedic aftercare (principal); Z98.890 Other specified postprocedural states ==

== ENCOUNTER → 2023-03-07 | Outpatient (CLI) | payer OTHER | LOC: M PAIN 11:30 | PROVIDERS: ATTEND Nurse Practitioner Family | DX: M25.512 Pain in left shoulder (principal); G89.29 Other chronic pain; Z86.14 Personal history of Methicillin resistant Staphylococcus aureus infection; Z86.59 Personal history of other mental and behavioral disorders; Z98.84 Bariatric surgery status; Z88.2 Allergy status to sulfonamides; Z88.4 Allergy status to anesthetic agent; Z88.5 Allergy status to narcotic agent; Z79.899 Other long term (current) drug therapy ==

== ENCOUNTER 2023-03-15 13:39 | Outpatient (RCR) | payer OTHER, BC | END 2023-03-24 | LOC: M PT 13:39 | PROVIDERS: ATTEND Nurse Practitioner Family | DX: Z98.890 Other specified postprocedural states (principal) ==

== ENCOUNTER → 2023-04-03 | Outpatient (CLI) | payer BC ==
[2023-04-03 15:32] LABS: BASO # 0.1 10^3/uL (0.0-0.2); BASO % 1.3 % (0.0-1.0); EOS # 0.2 10^3/uL (0.0-0.5); EOS % 3.7 % (0.0-3.0); HEMATOCRIT 43.2 % (36.0-47.0); HEMOGLOBIN 13.9 g/dl (12.0-15.5); LYMPH # 1.9 10^3/uL (1.5-5.0); LYMPH % 34.7 % (24.0-44.0); MEAN CORPUSCULAR HEMOGLOBIN 29.1 pg (27.0-33.0); MEAN CORPUSCULAR HGB CONC 32.2 g/dl (32.0-36.5); MEAN CORPUSCULAR VOLUME 90.6 fl (80.0-96.0); MONO # 0.6 10^3/uL (0.0-0.8); MONO % 10.7 % (2.0-8.0); NEUTROPHILS # 2.7 10^3/uL (1.5-8.5); NEUTROPHILS % 49.4 % (36.0-66.0); PLATELET COUNT, AUTOMATED 260 10^3/uL (150-450); RED BLOOD COUNT 4.77 10^6/uL (4.00-5.40); WHITE BLOOD COUNT 5.4 10^3/uL (4.0-10.0)
[2023-04-03 16:11] LABS: THYROID STIMULATING HORMONE 0.201 uIU/ML (0.55-4.78); TOTAL 25(OH) VITAMIN D 53.2 NG/ML (20.0-100.0)
[2023-04-03 16:13] LABS: FREE T4 0.99 NG/DL (0.89-1.76)
== END ==
LOC: M LAB 14:39
PROVIDERS: ATTEND Family Medicine
DX: E03.9 Hypothyroidism, unspecified (principal); E55.9 Vitamin D deficiency, unspecified; D51.9 Vitamin B12 deficiency anemia, unspecified

== ENCOUNTER 2023-04-10 13:31 | Outpatient (RCR) | payer OTHER, BC | END 2023-04-24 | LOC: M PT 13:31 | PROVIDERS: ATTEND Nurse Practitioner Family | DX: Z98.890 Other specified postprocedural states (principal); M25.512 Pain in left shoulder ==

== ENCOUNTER → 2023-05-08 | Outpatient (CLI) | payer BC, OTHER ==
[2023-05-08 10:28] LABS: THYROID STIMULATING HORMONE 0.248 uIU/ML (0.55-4.78)
[2023-05-08 10:30] LABS: FREE T4 1.16 NG/DL (0.89-1.76)
== END ==
LOC: M LAB 09:12
PROVIDERS: ATTEND Nurse Practitioner Adult Health
DX: E03.9 Hypothyroidism, unspecified (principal)

== ENCOUNTER → 2023-06-20 | Outpatient (CLI) | payer OTHER | LOC: M RAD 13:17 | PROVIDERS: ATTEND Nurse Practitioner Family | DX: M25.512 Pain in left shoulder (principal) ==

== ENCOUNTER → 2023-06-20 | Outpatient (CLI) | payer OTHER | LOC: M EKG 13:23 | PROVIDERS: ATTEND Orthopaedic Surgery | DX: Z01.818 Encounter for other preprocedural examination (principal) ==

== ENCOUNTER → 2023-07-08 | Outpatient (CLI) | payer BC ==
[2023-07-08 16:30] LABS: FREE T4 1.29 NG/DL (0.89-1.76); THYROID STIMULATING HORMONE 2.342 uIU/ML (0.55-4.78)
== END ==
LOC: M LAB 15:29
PROVIDERS: ATTEND Family Medicine
DX: E03.9 Hypothyroidism, unspecified (principal)

== ENCOUNTER → 2023-11-09 | Outpatient (CLI) | payer BC ==
[~2023-11-09] MED LIST changes: -OXYB5TAB10 PO; +OXYB5TAB11 PO
[2023-11-09 09:55] LABS: BASO % 0.6 % (0.0-1.0); EOS # 0.1 10^3/uL (0.0-0.5); EOS % 2.5 % (0.0-3.0); HEMATOCRIT 40.9 % (36.0-47.0); HEMOGLOBIN 13.2 g/dl (12.0-15.5); LYMPH # 1.5 10^3/uL (1.5-5.0); LYMPH % 31.2 % (24.0-44.0); MEAN CORPUSCULAR HEMOGLOBIN 28.8 pg (27.0-33.0); MEAN CORPUSCULAR HGB CONC 32.3 g/dl (32.0-36.5); MEAN CORPUSCULAR VOLUME 89.1 fl (80.0-96.0); MONO # 0.4 10^3/uL (0.0-0.8); MONO % 7.9 % (2.0-8.0); NEUTROPHILS # 2.7 10^3/uL (1.5-8.5); NEUTROPHILS % 57.6 % (36.0-66.0); PLATELET COUNT, AUTOMATED 229 10^3/uL (150-450); RED BLOOD COUNT 4.59 10^6/uL (4.00-5.40); WHITE BLOOD COUNT 4.7 10^3/uL (4.0-10.0)
[2023-11-09 10:36] LABS: IRON (FE) 69 UG/DL (50-170); PERCENT SATURATION 20.9 % (13.2-45.0); TOTAL IRON BINDING CAPACITY 330 UG/DL (250-425)
[2023-11-09 10:37] LABS: ALBUMIN 3.5 G/DL (3.2-5.2); ALKALINE PHOSPHATASE 77 U/L (46-116); ALT/SGPT 14 U/L (7.0-40); AST/SGOT 12 U/L (<34); BILIRUBIN,TOTAL 0.4 MG/DL (0.3-1.2); BLOOD UREA NITROGEN 15 MG/DL (9-23); CALCIUM LEVEL 8.6 MG/DL (8.3-10.6); CARBON DIOXIDE LEVEL 29 MMOL/L (20-31); CHLORIDE LEVEL 106 MMOL/L (98-107); CHOLESTEROL LEVEL 262 MG/DL (<200); CREATININE FOR GFR 0.75 MG/DL (0.55-1.30); FOLATE 14.1 NG/ML (>5.4); GLOMERULAR FILTRATION RATE > 60.0 (>45); GLUCOSE, FASTING 91 MG/DL (74-106); HDL CHOLESTEROL 60.9 MG/DL (>40); LDL CHOLESTEROL 176.1 MG/DL (<100); NON-HDL-C 201.1 MG/DL; SODIUM LEVEL 140 MMOL/L (136-145); TOTAL PROTEIN 6.2 G/DL (5.7-8.2); TRIGLYCERIDES LEVEL 125 MG/DL (<150)
[2023-11-09 10:38] LABS: THYROID STIMULATING HORMONE 12.747 uIU/ML (0.55-4.78); VITAMIN B12 LEVEL 514 PG/ML (211-911)
[2023-11-09 10:39] LABS: FREE T4 0.92 NG/DL (0.89-1.76)
== END ==
LOC: M LAB 09:32
PROVIDERS: ATTEND Nurse Practitioner Adult Health
DX: E78.00 Pure hypercholesterolemia, unspecified (principal); E03.9 Hypothyroidism, unspecified; E61.1 Iron deficiency; D51.9 Vitamin B12 deficiency anemia, unspecified; E55.9 Vitamin D deficiency, unspecified

== ENCOUNTER → 2024-01-24 | Outpatient (CLI) | payer OTHER ==
[~2024-01-24] MED LIST changes: -MIRA1POW3 PO; +MIRA33506 PO; -OXYB5TAB11 PO; +OXYB5TAB14 PO
[2024-01-24 14:16] LABS: FREE T4 1.1 NG/DL (0.89-1.76)
[2024-01-24 14:17] LABS: THYROID STIMULATING HORMONE 2.776 uIU/ML (0.55-4.78)
== END ==
LOC: M LAB 12:08
PROVIDERS: ATTEND Family Medicine
DX: E03.9 Hypothyroidism, unspecified (principal)

== ENCOUNTER → 2024-08-04 | Outpatient (CLI) | payer OTHER ==
[2024-08-04 14:04] LABS: BASO # 0.1 10^3/uL (0.0-0.2); BASO % 0.9 % (0.0-1.0); EOS # 0.1 10^3/uL (0.0-0.5); EOS % 2.1 % (0.0-3.0); HEMATOCRIT 42.2 % (36.0-47.0); HEMOGLOBIN 13.5 g/dl (12.0-15.5); LYMPH # 1.8 10^3/uL (1.5-5.0); LYMPH % 32.7 % (24.0-44.0); MEAN CORPUSCULAR HEMOGLOBIN 28.7 pg (27.0-33.0); MEAN CORPUSCULAR VOLUME 89.8 fl (80.0-96.0); MONO # 0.4 10^3/uL (0.0-0.8); MONO % 7.5 % (2.0-8.0); NEUTROPHILS # 3.2 10^3/uL (1.5-8.5); NEUTROPHILS % 56.6 % (36.0-66.0); PLATELET COUNT, AUTOMATED 259 10^3/uL (150-450); WHITE BLOOD COUNT 5.6 10^3/uL (4.0-10.0)
[2024-08-04 14:30] LABS: IRON (FE) 59 UG/DL (50-170)
[2024-08-04 14:31] LABS: ALBUMIN 3.7 G/DL (3.2-5.2); ALKALINE PHOSPHATASE 97 U/L (46-116); ALT/SGPT 16 U/L (7.0-40); AST/SGOT 11 U/L (<34); BILIRUBIN,TOTAL 0.3 MG/DL (0.3-1.2); BLOOD UREA NITROGEN 16 MG/DL (9-23); CALCIUM LEVEL 9.8 MG/DL (8.3-10.6); CARBON DIOXIDE LEVEL 28 MMOL/L (20-31); CHLORIDE LEVEL 108 MMOL/L (98-107); CHOLESTEROL LEVEL 239 MG/DL (<200); CHOLESTEROL RISK RATIO 3.68 (<5); CREATININE FOR GFR 0.67 MG/DL (0.55-1.30); GLOMERULAR FILTRATION RATE > 60.0 (>45); GLUCOSE, FASTING 143 MG/DL (74-106); HDL CHOLESTEROL 64.8 MG/DL (>40); LDL CHOLESTEROL 144.6 MG/DL (<100); NON-HDL-C 174.2 MG/DL; PERCENT SATURATION 17.7 % (13.2-45.0); POTASSIUM SERUM 3.8 MMOL/L (3.5-5.1); SODIUM LEVEL 142 MMOL/L (136-145); THYROID STIMULATING HORMONE 2.635 uIU/ML (0.55-4.78); TOTAL 25(OH) VITAMIN D 59.2 NG/ML (20.0-100.0); TOTAL IRON BINDING CAPACITY 333 UG/DL (250-425); TOTAL PROTEIN 6.7 G/DL (5.7-8.2); TRIGLYCERIDES LEVEL 148 MG/DL (<150)
[2024-08-04 14:32] LABS: FOLATE > 24.0 NG/ML (>5.4); VITAMIN B12 LEVEL 680 PG/ML (211-911)
== END ==
LOC: M LAB 13:05
PROVIDERS: ATTEND Nurse Practitioner Adult Health
DX: E03.9 Hypothyroidism, unspecified (principal); E78.00 Pure hypercholesterolemia, unspecified; E61.1 Iron deficiency; D51.9 Vitamin B12 deficiency anemia, unspecified; E55.9 Vitamin D deficiency, unspecified

== ENCOUNTER → 2025-08-13 | Outpatient (CLI) | payer MEDICARE ==
[~2025-08-13] MED LIST changes: -PREG50CA; +PREG50CA87
== END ==
LOC: M WHC 10:36
PROVIDERS: ATTEND Family Medicine
DX: Z12.31 Encounter for screening mammogram for malignant neoplasm of breast (principal); Z13.820 Encounter for screening for osteoporosis; R92.313 Mammographic fatty tissue density, bilateral breasts; M85.89 Other specified disorders of bone density and structure, multiple sites

== ENCOUNTER → 2025-10-12 | Outpatient (CLI) | payer MEDICARE ==
[2025-10-12 14:41] LABS: FREE T4 1.14 NG/DL (0.89-1.76)
== END ==
LOC: M WUC 08:46
PROVIDERS: ATTEND Nurse Practitioner Adult Health
DX: E03.9 Hypothyroidism, unspecified (principal)